=== PATIENT | female | born 1940 | race Caucasian/White ===

== ENCOUNTER 2021-07-19 13:36 | Outpatient (CLI) | payer MEDICARE, MEDICAID, SELFPAY ==
[2021-07-19 14:43] LABS: Alanine Aminotransferase 15 U/L (4-35); Albumin Level 3.9 g/dL (3.5-5.1); Alkaline Phosphatase 62 U/L (38-126); Anion Gap 7 mmol/L (8-16); Aspartate Amino Transferase 30 U/L (14-36); Bilirubin,Total 0.9 mg/dL (0.2-1.3); Blood Urea Nitrogen 21 mg/dL (7-17); Calcium 8.9 mg/dL (8.4-10.2); Carbon Dioxide 25 mmol/L (22-30); Chloride 105 mmol/L (98-107); Estimated Glomerular Filt Rate 43; Glucose 117 mg/dL (65-110); Sodium 137 mmol/L (137-145)
== END 2021-07-19 13:37 | disposition home or self-care (01) ==
PROVIDERS: PCP Family Medicine; Visit Provider Family Medicine
DX: I10 Essential (primary) hypertension (principal)
CPT/HCPCS: 36415; 80053

== ENCOUNTER 2021-09-29 13:10 | Outpatient (CLI) | payer MEDICARE, MEDICAID, SELFPAY ==
[2021-09-29 14:04] LABS: Alanine Aminotransferase 15 U/L (4-35); Albumin Level 3.9 g/dL (3.5-5.1); Alkaline Phosphatase 75 U/L (38-126); Anion Gap 7 mmol/L (8-16); Aspartate Amino Transferase 27 U/L (14-36); Bilirubin,Total 1.1 mg/dL (0.2-1.3); Blood Urea Nitrogen 21 mg/dL (7-17); Calcium 9.1 mg/dL (8.4-10.2); Carbon Dioxide 27 mmol/L (22-30); Chloride 105 mmol/L (98-107); Estimated Glomerular Filt Rate 43; Glucose 109 mg/dL (65-110); Potassium 3.8 mmol/L (3.4-5.0); Sodium 139 mmol/L (137-145)
== END 2021-09-29 13:11 | disposition home or self-care (01) ==
PROVIDERS: PCP Family Medicine; Visit Provider Family Medicine
DX: E87.6 Hypokalemia (principal); I10 Essential (primary) hypertension
CPT/HCPCS: 36415; 80053

== ENCOUNTER 2022-08-28 10:00 | Outpatient (CLI) | payer MEDICARE, MEDICAID, SELFPAY ==
[2022-08-28 10:27] LABS: Basophils Absolute Auto 0.1 K/mm3 (0.0-0.1); Basophils Percent Auto 0.9 % (0.2-1.2); Eosinophils Absolute Auto 0.2 K/mm3 (0-0.3); Eosinophils Percent Auto 3.2 % (0-4.4); Hematocrit 39.2 % (37.0-47.0); Hemoglobin 12.9 g/dL (12.0-15.0); Immature Granulocyte Absolute 0.02 K/mm3 (0.00-0.031); Immature Granulocyte Percent A 0.3 % (0-0.5); Lymphocytes Absolute Auto 1.73 K/mm3 (0.9-3.2); Lymphocytes Percent Auto 26.5 % (18.3-44.2); Mean Corpuscular HGB Conc 32.9 g/dl (32-36); Mean Corpuscular Hemoglobin 31.7 pg (26-34); Mean Corpuscular Volume 96.3 fl (80-100); Mean Platelet Volume 10.5 fl (7.4-10.4); Monocytes Absolute Auto 0.6 K/mm3 (0.1-0.6); Monocytes Percent Auto 8.6 % (2.6-8.5); Neutrophils Absolute Auto 3.9 K/mm3 (1.3-6.7); Neutrophils Percent Auto 60.5 % (45.5-73.1); Platelet Count Result 268 k/mm3 (150-375); Red Blood Count 4.07 M/mm3 (4.2-5.4); Red Cell Distribution Width 12.5 % (11.5-14.5); White Blood Count 6.5 K/mm3 (4.5-10.0)
[2022-08-28 10:40] LABS: Alanine Aminotransferase 18 U/L (6-35); Albumin Level 4.1 g/dL (3.5-5.1); Alkaline Phosphatase 82 U/L (38-126); Anion Gap 11 mmol/L (8-16); Aspartate Amino Transferase 30 U/L (14-36); Bilirubin,Total 0.7 mg/dL (0.2-1.3); Blood Urea Nitrogen 27 mg/dL (7-17); Calcium 8.9 mg/dL (8.4-10.2); Carbon Dioxide 30 mmol/L (22-30); Chloride 99 mmol/L (98-107); Cholesterol 192 mg/dL (0-200); Estimated Glomerular Filt Rate 36; Glucose 102 mg/dL (65-110); HDL Direct 42 mg/dL; Sodium 140 mmol/L (137-145); Triglycerides 184 mg/dL (<150)
[2022-08-28 10:51] LABS: LDL Cholesterol Direct 101 mg/dL
[2022-08-28 11:02] LABS: Vitamin D 25 Hydroxy 20.9 ng/mL
[2022-08-28 11:09] LABS: Thyroid Stimulating Hormone 0.951 uIU/mL (0.465-4.680)
== END 2022-08-28 10:01 | disposition home or self-care (01) ==
LOC: ANHLAB 10:01
PROVIDERS: PCP Family Medicine; Visit Provider Nurse Practitioner Family
DX: I10 Essential (primary) hypertension (principal); E78.5 Hyperlipidemia, unspecified; E03.9 Hypothyroidism, unspecified; E55.9 Vitamin D deficiency, unspecified
CPT/HCPCS: 36415; 80053; 80061; 82306; 84443; 85025

== ENCOUNTER 2023-02-21 16:13 | Outpatient (CLI) | payer MEDICARE, SELFPAY ==
[2023-02-21 16:58] LABS: Basophils Absolute Auto 0.1 K/mm3 (0.0-0.1); Basophils Percent Auto 0.7 % (0.2-1.2); Eosinophils Absolute Auto 0.1 K/mm3 (0-0.3); Eosinophils Percent Auto 1.3 % (0-4.4); Hematocrit 37.4 % (37.0-47.0); Hemoglobin 12.3 g/dL (12.0-15.0); Immature Granulocyte Absolute 0.05 K/mm3 (0.00-0.031); Immature Granulocyte Percent A 0.5 % (0-0.5); Lymphocytes Absolute Auto 1.34 K/mm3 (0.9-3.2); Lymphocytes Percent Auto 13.7 % (18.3-44.2); Mean Corpuscular HGB Conc 32.9 g/dl (32-36); Mean Corpuscular Hemoglobin 31.6 pg (26-34); Mean Corpuscular Volume 96.1 fl (80-100); Mean Platelet Volume 10.7 fl (7.4-10.4); Monocytes Percent Auto 10.1 % (2.6-8.5); Neutrophils Absolute Auto 7.2 K/mm3 (1.3-6.7); Neutrophils Percent Auto 73.7 % (45.5-73.1); Platelet Count Result 286 k/mm3 (150-375); Red Blood Count 3.89 M/mm3 (4.2-5.4); Red Cell Distribution Width 13.5 % (11.5-14.5); White Blood Count 9.8 K/mm3 (4.5-10.0)
[2023-02-21 17:11] LABS: Alanine Aminotransferase 22 U/L (6-35); Albumin Level 3.9 g/dL (3.5-5.1); Alkaline Phosphatase 79 U/L (38-126); Anion Gap 7 mmol/L (8-16); Aspartate Amino Transferase 24 U/L (14-36); Bilirubin,Total 1.2 mg/dL (0.2-1.3); Blood Urea Nitrogen 31 mg/dL (7-17); Carbon Dioxide 26 mmol/L (22-30); Chloride 101 mmol/L (98-107); Cholesterol 177 mg/dL (0-200); Estimated Glomerular Filt Rate 47; Glucose 87 mg/dL (65-110); HDL Direct 43 mg/dL; Sodium 134 mmol/L (137-145); Triglycerides 178 mg/dL (<150)
[2023-02-21 17:22] LABS: LDL Cholesterol Direct 93 mg/dL
[2023-02-21 17:41] LABS: Vitamin D 25 Hydroxy 26.2 ng/mL
== END 2023-02-21 16:14 | disposition home or self-care (01) ==
PROVIDERS: PCP Family Medicine; Visit Provider Nurse Practitioner Family
DX: I10 Essential (primary) hypertension (principal); E78.5 Hyperlipidemia, unspecified; E55.9 Vitamin D deficiency, unspecified
CPT/HCPCS: 36415; 80053; 80061; 82306; 85025

== ENCOUNTER 2023-05-20 12:42 | Emergency (ER) | payer MEDICARE, SELFPAY ==
--- NOTE | ~2023-05-20 | XR_ITS ---
Portable chest x-ray Comparison: 11/29/2019 Clinical History: Dyspnea Findings: Possible minimal interstitial edema. No focal consolidation or pleural effusion. Cardiome diastinal silhouette is stable. Left shoulder arthroplasty noted. Impression: Possible minimal interstitial edema. Reviewed, dictated and finalized at [facility]. Impression: Possible minimal interstitial edema.
[2023-05-20 12:49] VITALS: BP 169/76; PULSE 72; RESP 18; O2SAT 98
[2023-05-20 13:09] VITALS: O2SAT 98
[2023-05-20 13:30] VITALS: BP 166/61; PULSE 78; RESP 21; O2SAT 96
[2023-05-20] MEDS: CYCLOBENZAPRINE HCL 5 MG TABLET PO (14:01)
[2023-05-20 14:18] LABS: Basophils Absolute Auto 0.1 K/mm3 (0.0-0.1); Basophils Percent Auto 1.2 % (0.2-1.2); Eosinophils Absolute Auto 0.6 K/mm3 (0-0.3); Eosinophils Percent Auto 6.5 % (0-4.4); Hematocrit 34.2 % (37.0-47.0); Hemoglobin 11.3 g/dL (12.0-15.0); Immature Granulocyte Absolute 0.03 K/mm3 (0.00-0.031); Immature Granulocyte Percent A 0.4 % (0-0.5); Lymphocytes Percent Auto 11.8 % (18.3-44.2); Mean Corpuscular Hemoglobin 31.8 pg (26-34); Mean Corpuscular Volume 96.3 fl (80-100); Mean Platelet Volume 9.8 fl (7.4-10.4); Monocytes Absolute Auto 0.8 K/mm3 (0.1-0.6); Monocytes Percent Auto 8.9 % (2.6-8.5); Neutrophils Percent Auto 71.2 % (45.5-73.1); Platelet Count Result 265 k/mm3 (150-375); Red Blood Count 3.55 M/mm3 (4.2-5.4); Red Cell Distribution Width 13.3 % (11.5-14.5); White Blood Count 8.4 K/mm3 (4.5-10.0)
[2023-05-20 14:30] VITALS: BP 166/68; PULSE 82; RESP 20; O2SAT 98
[2023-05-20 14:31] LABS: Alanine Aminotransferase 15 U/L (6-35); Albumin Level 3.9 g/dL (3.5-5.1); Alkaline Phosphatase 110 U/L (38-126); Anion Gap 2 mmol/L (8-16); Aspartate Amino Transferase 26 U/L (14-36); Bilirubin,Total 1.5 mg/dL (0.2-1.3); Blood Urea Nitrogen 20 mg/dL (7-17); Calcium 8.7 mg/dL (8.4-10.2); Carbon Dioxide 28 mmol/L (22-30); Chloride 98 mmol/L (98-107); Estimated CRCL calculation 46 ml/min; Estimated Glomerular Filt Rate 53; Glucose 95 mg/dL (65-110); Magnesium 1.8 mg/dL (1.6-2.3); Potassium 3.9 mmol/L (3.4-5.0); Sodium 128 mmol/L (137-145)
[2023-05-20 14:37] LABS: NT Pro B Type Natriuretic Pept 1130 pg/mL (19.9-100)
--- NOTE | 2023-05-20 15:36 | ED.BACK ---
HPI - Back Pain/Injury General Chief Complaint: Back Pain/Injury Stated Complaint: SOB, BLE, sciatic nerve pain Time Seen by Provider: 05/20/23 13:01 History of Present Illness HPI Narrative: This is an 83-year-old female with past history of CKD, referred from an urgent care for bilateral lower extremity edema and back pain. The patient states she has history of sciatica and noted increased right side pain, rated 8/10 at maximum and 3/10 at rest, described as dull and occasionally shooting down the right leg. She denies any associated fevers, chills, falls, loss of bowel or bladder control or loss of sensation in the groin. The patient was seen at an urgent care where she was found to have bilateral lower extremity edema and mild Rales examination. Her vital signs are within normal limits. She was referred to for work-up. Related Data Home Medications Medication Instructions Recorded Confirmed nitroglycerin 0.4 mg sublingual 0.4 mg sublingual Q5M PRN Angina 09/16/19 08/08/22 tablet pantoprazole 40 mg tablet,delayed 40 mg PO QAM 09/16/19 08/08/22 release (Protonix) amlodipine 10 mg tablet 10 mg PO DAILY 05/28/21 08/08/22 Allergies Allergy/AdvReac Type Severity Reaction Status Date / Time Cephalosporins Allergy Severe DIFF Verified 05/20/23 11:31 BREATHING, THROAT SWELLING atorvastatin Allergy Unknown Muscle Pain Verified 05/20/23 11:31 azithromycin Allergy Unknown Anaphylaxis Verified 05/20/23 11:31 cephalexin Allergy Unknown Difficulty Verified 05/20/23 11:31 Breathing erythromycin base Allergy Unknown Anaphylaxis Verified 05/20/23 11:31 levofloxacin Allergy Unknown Rash Verified 05/20/23 11:31 Penicillins Allergy Unknown Anaphylaxis Verified 05/20/23 11:31 spironolactone Allergy Unknown Unknown Verified 05/20/23 11:31 Bcnxoqb-MLJ-CgD Reductase Allergy Unknown muscle Verified 05/20/23 11:31 Inhibitor weakness [Diunzlm-Kpv-Vld Reductase Inhibitor] Sulfa (Sulfonamide Allergy Unknown Anaphylaxis Verified 05/20/23 11:31 Antibiotics) Review of Systems Review of Systems: CONSTITUTIONAL: Denies fever, chills, or sweats. CARDIOVASCULAR: Bilateral lower extremity edema denies chest pain, palpitations RESPIRATORY: Denies cough or dyspnea. GASTROINTESTINAL: Denies abdominal pain, nausea, vomiting, or diarrhea. GENITOURINARY: Denies dysuria or hematuria. SKIN: Denies rash or itching. MUSCULOSKELETAL: Acute on chronic back pain radiating to the right leg denies joint pain, or myalgia. NEUROLOGIC: Denies headache, numbness, dizziness, or weakness. PSYCHIATRIC: Denies anxiety or depression. [facility] Past Medical History Medical History Acute renal failure (~06/2020) Adult failure to thrive Anxiety Arthritis rt shoulder, back Bilateral knee pain Chronic back pain Chronic lower back pain Compression fracture Compression fracture of lumbar spine, non-traumatic Fracture lt shoulder General weakness GERD without esophagitis HTN (hypertension) Hyperlipidemia Localized edema Myocardial infarction Osteopenia Paranoia (psychosis) Rhabdomyolysis (~06/2020) Shingles Statin intolerance Vitamin D deficiency Surgical History Surgical History H/O right knee surgery (~1988) ORIF H/O: hysterectomy (~1978) Hx of appendectomy (~1978) Hx of cataract surgery (~1992) bilateral Hx of cholecystectomy (~1992) Hx of heart artery stent (~2010) x3 Hx of shoulder surgery (~2013) lt shoulder replacement Family History Family History Mother Cerebrovascular accident, Onset Age: 77 Patient's mother is Family history of coronary artery disease Family history of osteoarthritis Family history of congestive heart failure Father Family history of lung cancer Patient's father is Family history of maligna
[2023-05-20 15:58] VITALS: BP 148/52; PULSE 81; RESP 14; O2SAT 98
== END 2023-05-20 16:07 ==
PROVIDERS: Emergency Provider Preventive Medicine Aerospace Medicine; PCP Family Medicine
DX: J81.0 Acute pulmonary edema (principal); E87.1 Hypo-osmolality and hyponatremia; I12.9 Hypertensive chronic kidney disease with stage 1 through stage 4 chronic kidney disease, or unspecified chronic kidney disease; N18.9 Chronic kidney disease, unspecified; I25.2 Old myocardial infarction; E78.5 Hyperlipidemia, unspecified; G89.29 Other chronic pain; M54.50 Low back pain, unspecified; K21.9 Gastro-esophageal reflux disease without esophagitis; M19.011 Primary osteoarthritis, right shoulder; M85.80 Other specified disorders of bone density and structure, unspecified site; E55.9 Vitamin D deficiency, unspecified; F41.9 Anxiety disorder, unspecified; R06.02 Shortness of breath; Z95.5 Presence of coronary angioplasty implant and graft; Z96.612 Presence of left artificial shoulder joint; Z87.891 Personal history of nicotine dependence; Z90.710 Acquired absence of both cervix and uterus; Z98.42 Cataract extraction status, left eye; Z98.41 Cataract extraction status, right eye; Z90.49 Acquired absence of other specified parts of digestive tract
CPT/HCPCS: 36415; 71045; 80053; 83735; 83880; 85025; 99283; A9270

== ENCOUNTER 2023-05-24 10:37 | Emergency (ER) | payer MEDICARE, SELFPAY ==
--- NOTE | ~2023-05-24 | XR_ITS ---
XR lumbar spine 2-3V DATE: 05/24/2023 11:47 INDICATION: Low back pain TECHNIQUE: AP, lateral, coned lateral lumbosacral views COMPARISON: 11/30/2019 lumbar spine FINDINGS: There is diffuse osteopenia. There is severe collapse (vertebra plana) at L1, increased in severity since 02/26/2016. Persistent moderate compression fractures of L3. L4, stable since 2016 . There is multi-level degenerative disc disease, most severe at T12-L1, L1-2 and L3-4 and L5-S1. The sacroiliac joints are intact. Bilateral hip osteoarthritis. There is calcification of the abdominal aorta and iliac arteries. IMPRESSION: Vertebroplasty at L1, increased in severity since 2015 Stable compression fracture deformities at L3 and L4 Multilevel degenerative disc disease Osteopenia Reviewed, dictated and finalized at location [facility]. IMPRESSION: Vertebroplasty at L1, increased in severity since 2016 Stable compression fracture deformities at L3 and L4 Multilevel degenerative disc disease Osteopenia
[2023-05-24 10:41] VITALS: BP 189/71; PULSE 67; RESP 18; TEMP 36.6; O2SAT 99
[2023-05-24] MEDS: KETOROLAC 30 MG/ML VIAL (*BKC) IM (11:17)
[2023-05-24 11:24] VITALS: O2SAT 98
[2023-05-24 11:30] VITALS: O2SAT 97
[2023-05-24 11:47] VITALS: O2SAT 99
[2023-05-24 12:00] VITALS: O2SAT 97
--- NOTE | 2023-05-24 13:09 | ED.GENADULT ---
HPI - General Adult General Chief complaint: Unspecified Stated complaint: FLUID RETENTION Time Seen by Provider: 05/24/23 10:44 History of Present Illness HPI narrative: Patient is an 83-year-old female who presents ER with low back pain. No SI region bilaterally. No radiation down the legs. Worse with going from sitting to standing. She has been on Solu-Medrol, palpable breathing, warm and. She reports she still has pain. No known fall or injury. Is having some increased discomfort today so came in for further evaluation. Has not had recent imaging. No urinary frequency urgency or dysuria. No saddle anesthesia. No incontinence. Patient also reports she has some chronic lower extremity edema. Related Data Home Medications Medication Instructions Recorded Confirmed nitroglycerin 0.4 mg sublingual 0.4 mg sublingual Q5M PRN Angina 09/16/19 08/08/22 tablet pantoprazole 40 mg tablet,delayed 40 mg PO QAM 09/16/19 08/08/22 release (Protonix) amlodipine 10 mg tablet 10 mg PO DAILY 05/28/21 08/08/22 Allergies Allergy/AdvReac Type Severity Reaction Status Date / Time Cephalosporins Allergy Severe DIFF Verified 05/24/23 11:16 BREATHING, THROAT SWELLING atorvastatin Allergy Unknown Muscle Pain Verified 05/24/23 11:16 azithromycin Allergy Unknown Anaphylaxis Verified 05/24/23 11:16 cephalexin Allergy Unknown Difficulty Verified 05/24/23 11:16 Breathing erythromycin base Allergy Unknown Anaphylaxis Verified 05/24/23 11:16 levofloxacin Allergy Unknown Rash Verified 05/24/23 11:16 Penicillins Allergy Unknown Anaphylaxis Verified 05/24/23 11:16 spironolactone Allergy Unknown Unknown Verified 05/24/23 11:16 Tjofrdg-GTS-UoL Reductase Allergy Unknown muscle Verified 05/24/23 11:16 Inhibitor weakness [Xsgxfdx-Zmx-Bfz Reductase Inhibitor] Sulfa (Sulfonamide Allergy Unknown Anaphylaxis Verified 05/24/23 11:16 Antibiotics) Review of Systems Constitutional: Constitutional: Denies chills and Denies fever(s) Genitourinary: Genitourinary: Denies dysuria, Denies flank pain and Denies urinary incontinence Musculoskeletal: Musculoskeletal: Reports back pain, Denies arthralgias and Denies joint swelling PMFSH Past Medical History Medical History Acute renal failure (~06/2020) Adult failure to thrive Anxiety Arthritis rt shoulder, back Bilateral knee pain Chronic back pain Chronic lower back pain Compression fracture Compression fracture of lumbar spine, non-traumatic Fracture lt shoulder General weakness GERD without esophagitis HTN (hypertension) Hyperlipidemia Localized edema Myocardial infarction Osteopenia Paranoia (psychosis) Rhabdomyolysis (~06/2020) Shingles Statin intolerance Vitamin D deficiency Surgical History Surgical History H/O right knee surgery (~1988) ORIF H/O: hysterectomy (~1978) Hx of appendectomy (~1978) Hx of cataract surgery (~1992) bilateral Hx of cholecystectomy (~1992) Hx of heart artery stent (~2010) x3 Hx of shoulder surgery (~2013) lt shoulder replacement Family History Family History Mother Cerebrovascular accident, Onset Age: 77 Patient's mother is Family history of coronary artery disease Family history of osteoarthritis Family history of congestive heart failure Father Family history of lung cancer Patient's father is Family history of malignant neoplasm Grandparent Cerebrovascular accident Family history of heart disease in male family member before age 55 Social History Social History Social History: The patient's same-sex partner has (2018), she moved to [facility] apartment 2019. She has no children. She has has a power of blintze roller (Mo Pelletier) who is an a
--- NOTE | 2023-05-24 13:18 | PC.NURSE ---
notified Amaris at [facility] of patient return. all questions answered at this time.
[2023-05-24 13:56] VITALS: BP 160/66; PULSE 79; O2SAT 97
== END 2023-05-24 14:14 ==
PROVIDERS: Emergency Provider Emergency Medicine; PCP Family Medicine
DX: M54.50 Low back pain, unspecified (principal); G89.29 Other chronic pain; I10 Essential (primary) hypertension; E78.5 Hyperlipidemia, unspecified; Z87.891 Personal history of nicotine dependence
CPT/HCPCS: 72100; 96372; 99283; J1885

== ENCOUNTER 2023-07-01 10:04 | Observation (INO) | payer MEDICARE, MEDICAID, SELFPAY ==
[2023-07-01] VITALS (39 sets, daily range): BP systolic 171–206; BP diastolic 49–73; PULSE 74–90; RESP 12–30; TEMP 36.4–36.5; O2SAT 91–98
--- NOTE | ~2023-07-01 | CT_ITS ---
EXAMINATION: CT lumbar spine wo con DATE: 07/01/2023 16:13 INDICATION: Low back pain TECHNIQUE: Computed tomography (CT) of the lumbar spine was performed without intravenous contrast. A utomated exposure control and iterative reconstruction technique were employed. The dose-length produ ct was 1508.38 mGy-cm. COMPARISON: Lumbar spine radiographs dated 05/24/2023 and 11/30/2019 and lumbar spine MR dated 6 FINDINGS: Straightening of the normal lumbar lordosis. 5 degrees lumbar dextrocurvature. Multiple chronic lumba r burst fractures with 90% central vertebral body height loss at L1 and 7 mm retropulsion, 40% centra l vertebral body height loss and 3 mm retropulsion at L3, 40% central vertebral body height loss and 6 mm retropulsion at L4 and 60% central vertebral body height loss and 2-3 mm retropulsion at L5. The se all appear unchanged since radiographs dated 05/24/2023. There is sclerosis associated with a still ununited minimally displaced sagittally oriented fracture of the right sacral ala. Additional sclero sis extending along the left sacral ala and across the S2 vertebral body consistent with additional n ondisplaced fractures. This without evident correlate on the most recent prior radiograph suggesting subacute fracture. There is secondary ballooning of the central aspect of the adjacent disc spaces. C holecystectomy clips the gallbladder fossa. Hepatic and splenic calcific lesions consistent with old granulomatous disease. Paravertebral soft tissues are unremarkable. The following disc levels are spe cifically discussed: T12-L1: There is mild bilateral facet joint osteoarthritis. There is mild right neural foraminal sten osis. There is no central canal stenosis. L1-L2: L1 retropulsion resulting in mild to moderate central canal stenosis at the level of the verte bral body and mild central canal stenosis at the level of the disc space. There is no central canal s tenosis at the level of the disc space. There is mild bilateral facet joint osteoarthritis. There is moderate left and mild to moderate right neural foraminal stenosis. L2-L3: There is mild central canal stenosis resulting from the retropulsion at the cephalad posterior wall of the L3 vertebral body. There is moderate bilateral facet joint osteoarthritis. There is mild left and mild to moderate right neural foraminal stenosis. L3-L4: There is mild central canal stenosis resulting from the retropulsion at the cephalad posterior wall of the L4 vertebral body. There is moderate bilateral facet joint osteoarthritis. There is mild bilateral neural foraminal stenosis. L4-L5: Disc is bulging. There is hypertrophy of the ligamentum flavum. There is severe bilateral face t joint osteoarthritis. There is moderate left and mild to moderate right neural foraminal stenosis. There is mild central canal stenosis. L5-S1: There is severe bilateral facet joint osteoarthritis. There is moderate bilateral neural chandan inal stenosis. There is no central canal stenosis. IMPRESSION: 1. Likely subacute sacral insufficiency fractures at the bilateral sacral ala and extending across th e S2 vertebral body. 2. Chronic burst fractures of L1, L3-L5 with retropulsion contributing to mild to moderate central ca nal stenosis at the level of L1 and mild central canal stenosis at a few additional lumbar levels. 3. Moderate to severe multilevel lumbar facet osteoarthritis contributing to mild and moderate neural foraminal stenosis at multiple levels on both the left and right. Reviewed, dictated and finalized at location A. IMPRESSION: 1. Likely subacute sacral insufficiency fractures at the bilateral sacral ala a nd extending across the S2 vertebral body. 2. Chronic burst fractures of L1, L3-L5 with retropulsion contributing to mild to m
--- NOTE | ~2023-07-01 | XR_ITS ---
EXAMINATION: XR chest 2V DATE: 07/01/2023 11:00 INDICATION: Shortness of breath TECHNIQUE: AP and lateral views of the chest are obtained. COMPARISON: 05/20/2023 FINDINGS: The heart size is normal. There is a mild diffuse interstitial pattern. There are small ple ural effusions. No pneumothorax is identified. Changes of left shoulder arthroplasty are noted. There is advanced osteoarthritis of the right glenohumeral joint. IMPRESSION: 1. Mild pulmonary edema. Reviewed, dictated and finalized at location A. IMPRESSION: 1. Mild pulmonary edema.
--- NOTE | ~2023-07-01 | US_ITS ---
EXAMINATION: US venous doppler [facility] DATE: 07/02/2023 14:31 INDICATION: Bilateral lower limb swelling TECHNIQUE: Vaughn scale images without and with compression and Doppler images of the bilateral lower e xtremity veins were obtained. COMPARISON: 05/10/2016 FINDINGS: The right common femoral vein, profunda femoral vein, femoral vein, popliteal vein, peroneal trunk, p osterior tibial veins, and greater saphenous vein are patent. The left common femoral vein, profunda femoral vein, femoral vein, popliteal vein, peroneal trunk, po sterior tibial veins, and greater saphenous vein are patent. IMPRESSION: 1. Patent bilateral lower extremity veins. No evidence of deep venous thrombosis. Reviewed, dictated and finalized at location A. IMPRESSION: 1. Patent bilateral lower extremity veins. No evidence of deep venous thrombosi s.
--- NOTE | 2023-07-01 10:22 | ECG_ITS ---
Measurements Intervals [place] Rate: 81 P: 53 FL: 153 QRS: 15 QRSD: 88 T: 2 QT: 354 QTc: 413 Interpretive Statements SINUS RHYTHM NONSPECIFIC ST AND T WAVE ABNORMALITY COMPARED TO ECG 12/01/2019 20:20:46 NO SIGNIFICANT CHANGES Electronically Signed On 07-02-2023 11:26:26 CDT by Mamie Lloyd M.D.
[2023-07-01 10:46] LABS: Basophils Percent Auto 0.5 % (0.2-1.2); Eosinophils Absolute Auto 0.1 K/mm3 (0-0.3); Eosinophils Percent Auto 1.7 % (0-4.4); Hematocrit 38.3 % (37.0-47.0); Hemoglobin 12.4 g/dL (12.0-15.0); Immature Granulocyte Absolute 0.05 K/mm3 (0.00-0.031); Immature Granulocyte Percent A 0.6 % (0-0.5); Lymphocytes Absolute Auto 1.12 K/mm3 (0.9-3.2); Lymphocytes Percent Auto 13.6 % (18.3-44.2); Mean Corpuscular HGB Conc 32.4 g/dl (32-36); Mean Corpuscular Hemoglobin 31.4 pg (26-34); Mean Platelet Volume 9.6 fl (7.4-10.4); Monocytes Absolute Auto 0.8 K/mm3 (0.1-0.6); Monocytes Percent Auto 10.1 % (2.6-8.5); Neutrophils Absolute Auto 6.1 K/mm3 (1.3-6.7); Neutrophils Percent Auto 73.5 % (45.5-73.1); Platelet Count Result 246 k/mm3 (150-375); Red Blood Count 3.95 M/mm3 (4.2-5.4); Red Cell Distribution Width 13.2 % (11.5-14.5); White Blood Count 8.2 K/mm3 (4.5-10.0)
[2023-07-01 10:57] LABS: Alanine Aminotransferase 17 U/L (6-35); Albumin Level 3.9 g/dL (3.5-5.1); Alkaline Phosphatase 135 U/L (38-126); Anion Gap 7 mmol/L (8-16); Aspartate Amino Transferase 25 U/L (14-36); Bilirubin,Total 1.3 mg/dL (0.2-1.3); Blood Urea Nitrogen 18 mg/dL (7-17); Calcium 8.9 mg/dL (8.4-10.2); Carbon Dioxide 28 mmol/L (22-30); Chloride 102 mmol/L (98-107); Estimated CRCL calculation 55 ml/min; Estimated Glomerular Filt Rate > 60; Glucose 100 mg/dL (65-110); Potassium 3.8 mmol/L (3.4-5.0); Sodium 137 mmol/L (137-145)
[2023-07-01 10:59] LABS: INR 1.1; Prothrombin Time 14.4 Seconds (11.1-14.7)
[2023-07-01 11:00] LABS: Partial Thromboplastin Time 32.5 SECONDS (22.3-36.8)
[2023-07-01 11:08] LABS: NT Pro B Type Natriuretic Pept 1900 pg/mL (19.9-100); Troponin I < 0.012 ng/mL (0.000-0.034)
[2023-07-01] MEDS: HYDROcodone/acetaminophen (*CRX) 5-325 MG TABLET 1 TAB PO ×2 (13:05→23:06)
--- NOTE | 2023-07-01 13:22 | ED.BACK ---
HPI - Back Pain/Injury General Chief Complaint: Back Pain/Injury Stated Complaint: back pain/fluid retention Time Seen by Provider: 07/01/23 13:21 Related Data Home Medications Medication Instructions Recorded Confirmed nitroglycerin 0.4 mg sublingual 0.4 mg sublingual Q5M PRN Angina 09/16/19 08/08/22 tablet pantoprazole 40 mg tablet,delayed 40 mg PO QAM 09/16/19 08/08/22 release (Protonix) amlodipine 10 mg tablet 10 mg PO DAILY 05/28/21 08/08/22 Allergies Allergy/AdvReac Type Severity Reaction Status Date / Time Cephalosporins Allergy Severe DIFF Verified 07/01/23 10:35 BREATHING, THROAT SWELLING atorvastatin Allergy Unknown Muscle Pain Verified 07/01/23 10:35 azithromycin Allergy Unknown Anaphylaxis Verified 07/01/23 10:35 cephalexin Allergy Unknown Difficulty Verified 07/01/23 10:35 Breathing erythromycin base Allergy Unknown Anaphylaxis Verified 07/01/23 10:35 levofloxacin Allergy Unknown Rash Verified 07/01/23 10:35 Penicillins Allergy Unknown Anaphylaxis Verified 07/01/23 10:35 spironolactone Allergy Unknown Unknown Verified 07/01/23 10:35 Ncbnhhi-SYP-SnF Reductase Allergy Unknown muscle Verified 07/01/23 10:35 Inhibitor weakness [Znpwujp-Rwt-Daw Reductase Inhibitor] Sulfa (Sulfonamide Allergy Unknown Anaphylaxis Verified 07/01/23 10:35 Antibiotics) PMFSH Past Medical History Medical History Acute renal failure (~06/2020) Adult failure to thrive Anxiety Arthritis rt shoulder, back Bilateral knee pain Chronic back pain Chronic lower back pain Compression fracture Compression fracture of lumbar spine, non-traumatic Fracture lt shoulder General weakness GERD without esophagitis HTN (hypertension) Hyperlipidemia Localized edema Myocardial infarction Osteopenia Paranoia (psychosis) Rhabdomyolysis (~06/2020) Shingles Statin intolerance Vitamin D deficiency Surgical History Surgical History H/O right knee surgery (~1988) ORIF H/O: hysterectomy (~1978) Hx of appendectomy (~1978) Hx of cataract surgery (~1992) bilateral Hx of cholecystectomy (~1992) Hx of heart artery stent (~2010) x3 Hx of shoulder surgery (~2013) lt shoulder replacement Family History Family History Mother Cerebrovascular accident, Onset Age: 77 Patient's mother is Family history of coronary artery disease Family history of osteoarthritis Family history of congestive heart failure Father Family history of lung cancer Patient's father is Family history of malignant neoplasm Grandparent Cerebrovascular accident Family history of heart disease in male family member before age 55 Social History Social History Social History: The patient's same-sex partner has (2018), she moved to [facility] apartment 2019. She has no children. She has has a power of deputy prosecuting attorney (Mo Pelletier) who is an deputy prosecuting attorney and a family friend. She wishes to be a do not resuscitate. She said she used to smoke 50 years ago. No alcohol or illicit drugs. Smoking status: Former smoker Second hand tobacco smoke exposure: No Smoking end date: 07/11/71 Alcohol intake: never Substance use: never Substance use type: does not use Living arrangements: assisted living Occupation/Education: retired Gender identity (if verbalized by the patient): Female Spiritual care concerns: No Agree to blood products: Yes Course Vital Signs Vital signs: Vital Signs Pulse Rate 90 07/01/23 10:16 Respiratory Rate 15 07/01/23 10:16 Blood Pressure 201/71 H 07/01/23 10:16 Pulse Oximetry 98 07/01/23 10:16 Temperature 36.5 C 07/01/23 10:19 Pulse Rate 80 07/01/23 12:47 Respiratory Rate 12 07/01/23 12:47 Blood Press
--- NOTE | 2023-07-01 15:52 | ED.GENADULT ---
HPI - General Adult General Chief complaint: Back Pain/Injury Stated complaint: back pain/fluid retention Time Seen by Provider: 07/01/23 13:21 History of Present Illness HPI narrative: 84-year-old female present to the emergency department for evaluation of lower back pain, increased lower extremity edema and increased generalized weakness. Patient states that approximately 1 month ago she had worsening bilateral sciatica then over the course of the months she has had sustained lower back pain. Patient denies any falls or injuries. Patient states over the course of the last week she has had difficulty getting up and ambulating due to her lower back pain. Patient states that she is normally supposed to be taking daily Lasix but due to her decreased ambulation she has not been taking her Lasix and has had worsening lower extremity edema. Related Data Home Medications Medication Instructions Recorded Confirmed nitroglycerin 0.4 mg sublingual 0.4 mg sublingual Q5M PRN Angina 09/16/19 07/01/23 tablet pantoprazole 40 mg tablet,delayed 40 mg PO QAM 09/16/19 07/01/23 release (Protonix) amlodipine 10 mg tablet 10 mg PO DAILY 05/28/21 07/01/23 Allergies Allergy/AdvReac Type Severity Reaction Status Date / Time Cephalosporins Allergy Severe DIFF Verified 07/01/23 10:35 BREATHING, THROAT SWELLING atorvastatin Allergy Unknown Muscle Pain Verified 07/01/23 10:35 azithromycin Allergy Unknown Anaphylaxis Verified 07/01/23 10:35 cephalexin Allergy Unknown Difficulty Verified 07/01/23 10:35 Breathing erythromycin base Allergy Unknown Anaphylaxis Verified 07/01/23 10:35 levofloxacin Allergy Unknown Rash Verified 07/01/23 10:35 Penicillins Allergy Unknown Anaphylaxis Verified 07/01/23 10:35 spironolactone Allergy Unknown Unknown Verified 07/01/23 10:35 Onspjzd-AXJ-YuV Reductase Allergy Unknown muscle Verified 07/01/23 10:35 Inhibitor weakness [Dayhfqz-Ocn-Twz Reductase Inhibitor] Sulfa (Sulfonamide Allergy Unknown Anaphylaxis Verified 07/01/23 10:35 Antibiotics) Review of Systems Review of Systems: All systems reviewed & are unremarkable except as noted in HPI and below PMFSH Past Medical History Medical History Acute renal failure (~06/2020) Adult failure to thrive Anxiety Arthritis rt shoulder, back Bilateral knee pain Chronic back pain Chronic lower back pain Compression fracture Compression fracture of lumbar spine, non-traumatic Fracture lt shoulder General weakness GERD without esophagitis HTN (hypertension) Hyperlipidemia Localized edema Myocardial infarction Osteopenia Paranoia (psychosis) Rhabdomyolysis (~06/2020) Shingles Statin intolerance Vitamin D deficiency Surgical History Surgical History H/O right knee surgery (~1988) ORIF H/O: hysterectomy (~1978) Hx of appendectomy (~1978) Hx of cataract surgery (~1992) bilateral Hx of cholecystectomy (~1992) Hx of heart artery stent (~2010) x3 Hx of shoulder surgery (~2013) lt shoulder replacement Family History Family History Mother Cerebrovascular accident, Onset Age: 77 Patient's mother is Family history of coronary artery disease Family history of osteoarthritis Family history of congestive heart failure Father Family history of lung cancer Patient's father is Family history of malignant neoplasm Grandparent Cerebrovascular accident Family history of heart disease in male family member before age 55 Social History Social History Social History: The patient's same-sex partner has (2018), she moved to [facility] apartment 2019. She has no children. She has has a power of transactional attorney (Mo Pelletier) who is an transactional attorney and a family friend. She wi
[2023-07-01] MEDS: FUROSEMIDE INJ 40 MG/4 ML VIAL IV PUSH ×2 (16:15→21:01)
[2023-07-01 16:36] LABS: Appearance Urine Clear (Clear); Bacteria Urine None Seen /hpf; Bilirubin Urine Negative (Negative); Blood Urine Trace (Negative); Color Urine Yellow (Yellow); Glucose Urine UA Negative (Negative); Ketones Urine Negative (Negative); Leukocyte Esterase Ur Negative LEU/UL (Negative); Nitrate Urine Negative (Negative); Non Pathogenic Casts 0-2; Protein Urine 3+ mg/dL (Negative); Specific Grav Ur 1.008 (1.001-1.035); Squamous Epithelial Cell Urine None seen /hpf (Few); Urobilinogen Urine 0.2 mg/dL (<2.0)
[2023-07-01 16:49] LABS: Add Urine Microscopic? YES
[2023-07-01] MEDS: lisinopriL 20 MG TABLET PO (17:19)
--- NOTE | 2023-07-01 17:21 | PC.NURSE ---
Ordered pt a meal tray at this time
--- NOTE | 2023-07-01 17:29 | WPDNEUROSGPN ---
Subjective Date/time seen: 07/01/23 17:29 Interval history: Asked by ED to review patient's imaging findings PAtient is 83 years old and presents with increasing back pain limiting overall mobility CT in ED shows multiple compression fractures, most pronouinced at L1 where there is near vertebrum planum with some canal retropulsion. There may be spinal stenosis at this level. No suggestion of acute injury or of indication for surgical intervention based upon CT, however if there is a desire to better understand whether the compression fracture is contributing to the patient's pain, would recommend MRI lumbar spine without contrast during this hospitalization MRI may also help determine age / acuity of the compression fracture as if it appears acute to subacute, lumbar bracing may be useful. Please contact neurosurgery if and when MRI is complete and we can help with recommendations regarding further mgmt Objective Data Vital Signs Vital Signs: Vital Signs - 24 hr 07/01/23 10:19 07/01/23 10:16 07/01/23 10:22 Temperature 97.7 F Pulse Rate 79 90 76 Respiratory Rate 16 15 12 Blood Pressure 206/69 H 201/71 H Pulse Oximetry 96 98 97 Oxygen Delivery Room Air 07/01/23 10:30 07/01/23 10:50 07/01/23 11:01 Temperature Pulse Rate 80 80 84 Respiratory Rate 20 14 13 Blood Pressure Pulse Oximetry 96 95 92 Oxygen Delivery 07/01/23 11:15 07/01/23 11:16 07/01/23 11:30 Temperature Pulse Rate 85 85 83 Respiratory Rate 15 15 13 Blood Pressure 200/65 H Pulse Oximetry 93 94 93 Oxygen Delivery 07/01/23 11:50 07/01/23 12:04 07/01/23 12:16 Temperature Pulse Rate 81 79 82 Respiratory Rate 16 23 H 14 Blood Pressure Pulse Oximetry 94 93 93 Oxygen Delivery 07/01/23 12:30 07/01/23 12:47 07/01/23 13:00 Temperature Pulse Rate 79 80 78 Respiratory Rate 30 H 12 18 Blood Pressure Pulse Oximetry 93 97 Oxygen Delivery 07/01/23 13:17 07/01/23 13:30 07/01/23 13:31 Temperature Pulse Rate 81 81 78 Respiratory Rate 14 15 15 Blood Pressure 187/60 H Pulse Oximetry 93 94 Oxygen Delivery 07/01/23 13:48 07/01/23 14:00 07/01/23 14:15 Temperature Pulse Rate 76 76 80 Respiratory Rate 13 13 14 Blood Pressure Pulse Oximetry 91 92 91 Oxygen Delivery 07/01/23 14:16 07/01/23 14:30 07/01/23 15:05 Temperature Pulse Rate 78 76 76 Respiratory Rate 14 13 13 Blood Pressure 190/59 H Pulse Oximetry 92 91 Oxygen Delivery 07/01/23 15:16 07/01/23 15:30 07/01/23 15:50 Temperature Pulse Rate 76 76 77 Respiratory Rate 12 15 14 Blood Pressure Pulse Oximetry Oxygen Delivery 07/01/23 16:10 Temperature Pulse Rate 78 Respiratory Rate 15 Blood Pressure 203/63 H Pulse Oximetry 94 Oxygen Delivery Meds/Results Medications: Active Medications Generic Name Dose Route Start Last Admin Trade Name Freq PRN Reason Stop Dose Admin Furosemide 40 mg 07/01/23 21:00 Furosemide Inj 40 Mg/4 Ml Vial IV PUSH Q12HR VIELKA Radiology Results: ITS Impressions Chest X-Ray 07/01/23 11:03 IMPRESSION: 1. Mild pulmonary edema. Lumbar Spine CT 07/01/23 16:27 IMPRESSION: 1. Likely subacute sacral insufficiency fractures at the bilateral sacral ala and extending across the S2 vertebral body. 2. Chronic burst fractures of L1, L3-L5 with retropulsion contributing to mild to moderate central canal stenosis at the level of L1 and mild central canal stenosis at a few additional lumbar levels. 3. Moderate to severe multilevel lumbar facet osteoarthritis contributing to mild and moderate neural foraminal stenosis at multiple levels on both the left and right. Labs Labs: Laboratory Results - last 24 hr 07/01/23 07/01/23 10:32 16:12 WBC 8.2 RBC 3.95 L Hgb 12.4 Hct 38.3 MCV 97.0 MCH 31.4 MCHC 32.4 RDW 13.2 Plt Count 246 MPV 9.6 Immature Gran % (Auto) 0.6 H Neut % (Auto) 73.5 H Lymph % (Auto) 13.6 L
[2023-07-01] MEDS: amLODIPine BESYLATE 2.5 MG TABLET 10 MG PO (17:35)
[2023-07-01] MEDS: hydroCHLOROthiazide 12.5 MG CAPSULE PO (17:36)
--- NOTE | 2023-07-01 19:29 | ADMGEN ---
This patient, Ofelia Monzon, was admitted to [facility] Surg Room 306-01. Patient/family oriented to hospital policies and general routines including ID bracelet, bed and alarms, visiting hours, pain management, procedures, bathroom and other care routines, personal items, smoking policy, room service/diet, and visiting hours. Information on how to activate the Rapid Response Team has been discussed. Patient/Family are encouraged to report perceived risks to care and to ask questions if they do not understand what they are told or what they should do.
--- NOTE | 2023-07-01 20:11 | PM.IMHP ---
H&P: HPI History of Present Illness Date/Time: 07/01/23 20:11 [facility] Past Medical History Medical History Acute renal failure (~06/2020) Adult failure to thrive Anxiety Arthritis rt shoulder, back Bilateral knee pain Chronic back pain Chronic lower back pain Compression fracture Compression fracture of lumbar spine, non-traumatic Fracture lt shoulder General weakness GERD without esophagitis HTN (hypertension) Hyperlipidemia Localized edema Myocardial infarction Osteopenia Paranoia (psychosis) Rhabdomyolysis (~06/2020) Shingles Statin intolerance Vitamin D deficiency Surgical History Surgical History H/O right knee surgery (~1988) ORIF H/O: hysterectomy (~1978) Hx of appendectomy (~1978) Hx of cataract surgery (~1992) bilateral Hx of cholecystectomy (~1992) Hx of heart artery stent (~2010) x3 Hx of shoulder surgery (~2013) lt shoulder replacement Family History Family History Mother Cerebrovascular accident, Onset Age: 77 Patient's mother is Family history of coronary artery disease Family history of osteoarthritis Family history of congestive heart failure Father Family history of lung cancer Patient's father is Family history of malignant neoplasm Grandparent Cerebrovascular accident Family history of heart disease in male family member before age 55 Social History Social History Social History: The patient's same-sex partner has (2018), she moved to [facility] apartment 2019. She has no children. She has has a power of assistant attorney general (Mo Pelletier) who is an assistant attorney general and a family friend. She wishes to be a do not resuscitate. She said she used to smoke 50 years ago. No alcohol or illicit drugs. Smoking status: Former smoker Second hand tobacco smoke exposure: No Smoking end date: 07/11/71 Alcohol intake: never Substance use: never Substance use type: does not use Living arrangements: assisted living Occupation/Education: retired Gender identity (if verbalized by the patient): Female Spiritual care concerns: No Agree to blood products: Yes Meds Home Medications and Allergies Home Medications Medication Instructions Recorded Confirmed Type nitroglycerin 0.4 mg sublingual 0.4 mg sublingual Q5M PRN Angina 09/16/19 08/08/22 History tablet pantoprazole 40 mg tablet,delayed 40 mg PO QAM 09/16/19 08/08/22 History release (Protonix) acetaminophen 325 mg tablet (Mapap 650 mg PO Q4H PRN Mild Pain (1-3) 12/04/19 08/08/22 Rx (acetaminophen)) Or Fever #30 tabs loperamide 2 mg capsule (Imodium 2 mg PO Q6H PRN loose stool #14 05/15/21 08/08/22 Rx A-D) caps amlodipine 10 mg tablet 10 mg PO DAILY 05/28/21 08/08/22 History clopidogrel 75 mg tablet 75 mg PO DAILY #90 tabs 08/20/21 08/08/22 Rx lisinopril 20 1 tablet PO DAILY #90 tabs 10/01/21 08/08/22 Rx mg-hydrochlorothiazide 12.5 mg tablet atenolol 100 mg tablet See Rx Instructions PO BID #180 11/14/21 08/08/22 Rx tabs diazepam 5 mg tablet 5 mg PO DAILY PRN anxiety #90 tabs 12/16/22 Rx cholecalciferol (vitamin D3) 50 50 mcg PO DAILY #90 caps 02/13/23 02/13/23 Rx mcg (2,000 unit) capsule calcium carbonate 600 mg calcium 600 mg PO BID #60 tabs 02/24/23 Rx (1,500 mg) tablet (Calcium) furosemide 20 mg tablet 20 mg PO QAM PRN edema #30 tabs 02/28/23 Rx potassium chloride 20 mEq 20 meq PO DAILY #90 tabs 04/03/23 Rx tablet,extended release furosemide 20 mg tablet 20 mg PO DAILY #30 tabs 05/20/23 Rx methylprednisolone 4 mg tablets in See Rx Instructions PO PER PKG DIR 05/20/23 05/20/23 Rx a dose pack (Medrol (Ollie)) #21 ea cyclobenzaprine 5 mg tablet 5 mg PO HS PRN muscle spasm #10 05/28/23 Rx tabs hydrocodone 5 mg-acetaminophe
--- NOTE | 2023-07-01 22:40 | PM.IMHP ---
H&P: HPI History of Present Illness Date/Time: 07/01/23 22:40 Chief Complaint: Back pain/fluid retention. Narrative: 84-year-old female present to the emergency department for evaluation of lower back pain, increased lower extremity edema and increased generalized weakness.? Patient states that approximately 1 month ago she had worsening bilateral sciatica then over the course of the months she has had sustained lower back pain.? Patient denies any falls or injuries.? Patient states over the course of the last week she has had difficulty getting up and ambulating due to her lower back pain.? Patient states that she is normally supposed to be taking daily Lasix but due to her decreased ambulation she has not been taking her Lasix and has had worsening lower extremity edema. The patient stated that she has been having lower back pain and that she does not feel that she would be able to tolerate a MRI. BNP 1900. Lumbar spine CT was read as. Likely subacute sacral insufficiency fractures at the bilateral sacral ala and extending across the S2 vertebral body. 2. Chronic burst fractures of L1, L3-L5 with retropulsion contributing to mild to moderate central canal stenosis at the level of L1 and mild central canal stenosis at a few additional lumbar levels. 3. Moderate to severe multilevel lumbar facet osteoarthritis contributing to mild and moderate neural foraminal stenosis at multiple levels on both the left and right. Chest x-ray was read as mild pulmonary edema. The patient was given [place], Lasix, Norvasc, lisinopril, and hydrochlorothiazide. The patient is being admitted to observation status on the date of service of 07/01/2023 Review of Systems Review of Systems: All systems reviewed & are unremarkable except as noted in HPI and below Constitutional: Constitutional: Reports as per HPI and Reports no additional constitutional complaints Eyes: Eyes: Reports as per HPI and Reports no additional eye complaints ENT: Reports system reviewed and no additional complaints, except as documented and Reports Normal hearing present Cardiovascular: Cardiovascular: Reports no additional cardiovascular complaints Respiratory: Respiratory: Reports no additional respiratory complaints and Reports no additional respiratory complaints Gastrointestinal: Gastrointestinal: Reports as per HPI and Reports no additional gastrointestinal complaints Musculoskeletal: Musculoskeletal: Reports no additional musculoskeletal complaints Integumentary/Breasts: Skin/Breast: Reports system reviewed and no additional complaints, except as docu and Reports as per HPI Neurologic: Reports system reviewed and no additional complaints, except as documented, Reports as per HPI and Reports Normal hearing present Psychiatric: Psychiatric: Reports no additional psychiatric complaints and Reports as per HPI Endocrine: Endocrine: Reports no additional endocrine complaints Hematologic/Lymphatic: Hematologic/Lymphatic: Reports no additional hematologic/lymphatic complaints Allergic/Immunologic: Allergic/Immunologic: Reports no additional allergic/immunologic complaints [facility] Past Medical History Medical History (Updated 07/02/23 @ 03:09 by Joanna Sarmiento NP) Acute renal failure (~06/2020) Adult failure to thrive Anxiety Arthritis rt shoulder, back Back pain Bilateral knee pain Chronic back pain Chronic lower back pain Compression fracture Compression fracture of lumbar spine, non-traumatic Fracture lt shoulder General weakness GERD without esophagitis HTN (hypertension) Hyperlipidemia Localized edema Myocardial infarction Osteopenia Paranoia (psychosis) Rhabdomyolysis (~06/2020) Shingles Statin intolerance Vitamin D deficiency Surgical History Surgical History H/O right knee surgery (~1988) ORIF H/O: hysterectomy (~1978) Hx of appendectomy (~1978) Hx of cataract surgery (~1992) bilateral Hx of cholec
--- NOTE | 2023-07-02 | ECHO_ITS ---
Patient Info Name: Ofelia Monzon Age: 83 years : 1940 Gender: Female Ht: 66 in Wt: 222 lbs BSA: 2.21 m2 HR: 78 bpm BP: 186 / 54 mmHg Technical Quality: Good Exam Date: 07/02/2023 10:07 AM Exam Location: [facility] Pulmonary Exam Room: 306 Patient Status: Inpatient Admit Date: 07/01/2023 Staff Ordering Physician: Joanna Sarmiento NP Visual Merchandising Director: Whitney Mike RDCS Attending Provider: Nav Cruz MD Referring Physician: Guillermina PATHAK; Exam Type: CA echo dop color flow w con Study Info Indications - EDEMA Complete two-dimensional, color flow and Doppler transthoracic echocardiogram is performed with contrast to opacify the left ventricle and to improve the deliniation of the left ventricle endocardial borders. Contrast/Agitated Saline Contrast/Ag. Saline: Definity Amount: 2.00 ml Administered By: Whitney Mike [facility] [place] Existing IV Access: Yes IV Access Condition: patent with no signs of infiltration Summary 1. Left ventricular chamber dimension is normal. 2. Definity contrast administered improved wall motion interpretation. 3. Left ventricular systolic function is normal, estimated at 65-70%. 4. There is mild concentric increased left ventricular wall thickness. 5. The left ventricular diastolic function is grade I diastolic dysfunction. 6. E/e' 7 is not elevated. 7. Left atrial chamber dimension is mildly enlarged. 8. There is mild aortic valve sclerosis. 9. The mitral valve has mildly calcified annulus. 10. There is trace tricuspid valve regurgitation. 11. No pulmonary hypertension, estimated pulmonary arterial systolic pressure is 39 mmHg. 12. There is trace pulmonic regurgitation. Left Ventricle E/e' 7 is not elevated. Definity contrast administered improved wall motion interpretation. Left ventricular chamber dimension is normal. Left ventricular systolic function is normal, estimated at 65-70%. There is mild concentric increased left ventricular wall thickness. The left ventricular diastolic function is grade I diastolic dysfunction. Right Ventricle Right ventricular chamber dimension is normal. Right ventricular systolic function is normal. Left Atria Left atrial chamber dimension is mildly enlarged. Right Atria Right atrial chamber dimension is normal. Aortic Valve The aortic valve is trileaflet. There is mild aortic valve sclerosis. There is no aortic valve stenosis. There is no aortic valve regurgitation. Pulmonic Valve There is trace pulmonic regurgitation. Mitral Valve The mitral valve has mildly calcified annulus. There is no mitral valve stenosis. There is no mitral valve regurgitation. Tricuspid Valve There is trace tricuspid valve regurgitation. No pulmonary hypertension, estimated pulmonary arterial systolic pressure is 39 mmHg. Pericardium/Pleural There is no pericardial effusion. Inferior Vena Cava Normal inferior vena cava with >50% collapse upon inspiration consistent with normal right atrial pressure, 5 mmHg. Aorta The aortic root size at the sinus of Valsalva is normal. Left Ventricular Outflow Tract Name Value Normal LVOT 2D LVOT Diameter 1.99 cm LVOT Doppler LVOT Peak
[2023-07-02] MEDS: METHYLNALTREXONE 12 MG/0.6 ML VIAL SUB-Q (00:09)
[2023-07-02 05:27] VITALS: BP 186/54; PULSE 83; RESP 16; TEMP 36.5; O2SAT 98
[2023-07-02 07:00] LABS: Basophils Percent Auto 0.5 % (0.2-1.2); Eosinophils Absolute Auto 0.1 K/mm3 (0-0.3); Eosinophils Percent Auto 1.5 % (0-4.4); Hematocrit 39.7 % (37.0-47.0); Hemoglobin 12.8 g/dL (12.0-15.0); Immature Granulocyte Absolute 0.05 K/mm3 (0.00-0.031); Immature Granulocyte Percent A 0.6 % (0-0.5); Lymphocytes Absolute Auto 1.13 K/mm3 (0.9-3.2); Lymphocytes Percent Auto 12.9 % (18.3-44.2); Mean Corpuscular HGB Conc 32.2 g/dl (32-36); Mean Corpuscular Hemoglobin 30.8 pg (26-34); Mean Corpuscular Volume 95.4 fl (80-100); Mean Platelet Volume 10.1 fl (7.4-10.4); Monocytes Absolute Auto 0.9 K/mm3 (0.1-0.6); Monocytes Percent Auto 10.7 % (2.6-8.5); Neutrophils Absolute Auto 6.5 K/mm3 (1.3-6.7); Neutrophils Percent Auto 73.8 % (45.5-73.1); Platelet Count Result 282 k/mm3 (150-375); Red Blood Count 4.16 M/mm3 (4.2-5.4); Red Cell Distribution Width 12.9 % (11.5-14.5); White Blood Count 8.7 K/mm3 (4.5-10.0)
[2023-07-02 07:16] LABS: Alanine Aminotransferase 16 U/L (6-35); Albumin Level 3.7 g/dL (3.5-5.1); Alkaline Phosphatase 131 U/L (38-126); Anion Gap 6 mmol/L (8-16); Aspartate Amino Transferase 24 U/L (14-36); Bilirubin,Total 1.7 mg/dL (0.2-1.3); Blood Urea Nitrogen 19 mg/dL (7-17); Calcium 8.4 mg/dL (8.4-10.2); Carbon Dioxide 32 mmol/L (22-30); Chloride 96 mmol/L (98-107); Estimated CRCL calculation 49 ml/min; Estimated Glomerular Filt Rate 60; Glucose 109 mg/dL (65-110); Magnesium 1.7 mg/dL (1.6-2.3); Potassium 3.5 mmol/L (3.4-5.0); Sodium 134 mmol/L (137-145)
[2023-07-02 07:55] LABS: Thyroid Stimulating Hormone Reflex 0.666 uIU/mL (0.465-4.68)
[2023-07-02] MEDS: POTASSIUM CHLORIDE 20 MEQ ER TABLET PO (08:41)
[2023-07-02] MEDS: lisinopriL 20 MG TABLET PO (08:42)
[2023-07-02] MEDS: atenoloL 50 MG TABLET PO (08:42)
[2023-07-02] MEDS: hydroCHLOROthiazide 12.5 MG CAPSULE PO (08:42)
[2023-07-02] MEDS: FUROSEMIDE INJ 40 MG/4 ML VIAL IV PUSH ×2 (08:42→20:21)
[2023-07-02] MEDS: amLODIPine BESYLATE 5 MG TABLET 10 MG PO (08:42)
[2023-07-02] MEDS: PANTOPRAZOLE 40 MG TABLET PO (08:42)
[2023-07-02] MEDS: CLOPIDOGREL BISULFATE 75 MG TABLET PO (08:43)
[2023-07-02] MEDS: BISACODYL 10 MG SUPPOSITORY RECTAL ×2 (08:43→10:47)
[2023-07-02] MEDS: ENOXAPARIN 40 MG/0.4 ML SYRINGE SUB-Q (08:43)
[2023-07-02] MEDS: LIDOCAINE 5% PATCH 1 PATCH TOPICAL (08:43)
[2023-07-02 09:07] VITALS: O2SAT 94
[2023-07-02] MEDS: PERFLUTREN LIPID MICROSPHERES 1.5 ML VIAL DILUTED TO 10 ML TOTAL VOLUME IV PUSH (10:30)
--- NOTE | 2023-07-02 11:39 | PM.IMPN ---
Progress Note: A&P Assessment and Plan (1) Edema: Code(s): R60.9 - Edema, unspecified Status: Acute Assessment and Plan: Venous Dopplers have been ordered. Echo has been ordered. The patient is on IV Lasix at this time. The left leg appears to be lymphedema. The patient is not short of breath and she is on room air. Her chest x-ray really shows some mild pulmonary edema. 01/30/2023 Patient breathing is better. Edema is slightly better. Plan is to continue with diuresis. (2) HTN (hypertension): Qualifiers: Hypertension type: unspecified Qualified Code(s): I10 - Essential (primary) hypertension Code(s): I10 - Essential (primary) hypertension Status: Acute Assessment and Plan: Stable, continue current treatment. (3) CAD (coronary artery disease): Qualifiers: Coronary Disease-Associated Artery/Lesion type: unspecified vessel or lesion type [place] vs. transplanted heart: [place] heart Associated angina: without angina Qualified Code(s): I25.10 - Atherosclerotic heart disease of [place] coronary artery without angina pectoris Code(s): I25.10 - Atherosclerotic heart disease of [place] coronary artery without angina pectoris Status: Acute Assessment and Plan: Stable, continue with Plavix. P.r.n. nitroglycerin. The patient has a history of coronary stents. (4) Hyperlipidemia: Qualifiers: Hyperlipidemia type: unspecified Qualified Code(s): E78.5 - Hyperlipidemia, unspecified Code(s): E78.5 - Hyperlipidemia, unspecified Status: Acute Assessment and Plan: Stable cough continue with heart healthy diet. (5) Anxiety: Code(s): F41.9 - Anxiety disorder, unspecified Status: Acute Assessment and Plan: Stable continue with Valium (6) CKD (chronic kidney disease) stage 3, GFR 30-59 ml/min: Qualifiers: Chronic kidney disease stage 3 subtype: stage 3a (GFR 45-59) Qualified Code(s): N18.31 - Chronic kidney disease, stage 3a Code(s): N18.3 - Chronic kidney disease, stage 3 (moderate) Status: Acute Assessment and Plan: Patient GFR is greater than 60 and her BUN is 18 creatinine 0.8 (7) Back pain: Code(s): M54.9 - Dorsalgia, unspecified Status: Acute Assessment and Plan: Admitting physician discussed a neurosurgeon consult and an MRI. The patient stated this is chronic and she does not think she could tolerate an MRI. This is chronic and she stated that she just wants pain medication that she is on chronically. I did offer her PT and OT. Continue with her home medications of Tylenol, Valium, hydrocodone, and lidocaine patches. The patient stated that she has tried steroids in the past and have not worked for her. ER did consult Neurosurgery. Subjective Date/time seen: 07/02/23 11:39 Interval history: Patient was seen during the morning rounds today. Patient has mild shortness of breath. No chest pain. Pain control. No abdominal pain, nausea, no vomiting. Mood stable. Review of Systems Review of Systems: All systems reviewed & are unremarkable except as noted in HPI and below Constitutional: Constitutional: Reports as per HPI and Reports no additional constitutional complaints Eyes: Eyes: Reports as per HPI and Reports no additional eye complaints ENT: Reports system reviewed and no additional complaints, except as documented and Reports Normal hearing present Cardiovascular: Cardiovascular: Reports no additional cardiovascular complaints Respiratory: Respiratory: Reports no additional respiratory complaints and Reports no additional respiratory complaints Gastrointestinal: Gastrointestinal: Reports as per HPI and Reports no additional gastrointestinal complaints Musculoskeletal: Musculoskeletal: Reports no additional musculoskeletal complaints Integumentary/Breasts: Skin/Breast: Reports system reviewed and no additional complaints, excep
[2023-07-02 13:41] VITALS: BP 167/68; PULSE 70; RESP 16; TEMP 36.4; O2SAT 97
--- NOTE | 2023-07-02 14:04 | IVDEFINITY ---
Prior to administration of IV Definity the patient was educated on the risks and benefits of the imaging enhancing agent including potential adverse side effects. The patient verbalized understanding. Allergies were verified. No exclusion criteria were identified and at least one of the following inclusion criteria were met: 1) physician request, 2) patient technically difficult to image (per the [place] Society of Echocardiography guidelines of two or more segments not discernable within the apical view), or 3) questionable left ventricular function. ?
--- NOTE | 2023-07-02 16:17 | PCPTNOTE ---
Attempted PT evaluation. Pt refused stating she is too tired and needs to rest. Will follow.
[2023-07-02] MEDS: atenoloL 50 MG TABLET 100 MG PO (20:20)
[2023-07-02] MEDS: HYDROcodone/acetaminophen (*CRX) 5-325 MG TABLET 1 TAB PO (20:20)
[2023-07-02 21:44] VITALS: BP 142/51; PULSE 72; RESP 16; TEMP 37.1; O2SAT 95
[2023-07-03 05:36] VITALS: BP 166/51; PULSE 64; RESP 14; TEMP 37.1; O2SAT 94
[2023-07-03] MEDS: atenoloL 50 MG TABLET PO (08:32)
[2023-07-03] MEDS: ENOXAPARIN 40 MG/0.4 ML SYRINGE SUB-Q (08:32)
[2023-07-03] MEDS: FUROSEMIDE INJ 40 MG/4 ML VIAL IV PUSH ×2 (08:33→20:58)
[2023-07-03] MEDS: lisinopriL 20 MG TABLET PO (08:33)
[2023-07-03] MEDS: POTASSIUM CHLORIDE 20 MEQ ER TABLET PO (08:33)
[2023-07-03] MEDS: LIDOCAINE 5% PATCH 1 PATCH TOPICAL (08:33)
[2023-07-03] MEDS: hydroCHLOROthiazide 12.5 MG CAPSULE PO (08:33)
[2023-07-03] MEDS: PANTOPRAZOLE 40 MG TABLET PO (08:33)
[2023-07-03] MEDS: amLODIPine BESYLATE 5 MG TABLET 10 MG PO (08:33)
[2023-07-03] MEDS: CLOPIDOGREL BISULFATE 75 MG TABLET PO (08:33)
--- NOTE | 2023-07-03 12:49 | WPDNEUROSGPN ---
Progress Note: A&P Assessment and Plan (1) Back pain: Code(s): M54.9 - Dorsalgia, unspecified Status: Acute (2) Compression fracture: Status: Acute Plan I have attempted the last 2 days to see the patient who, at the time of my visit, has required extensive time using the restroom and getting cleaned up. I have not been able to see or examine her personally, although I have witnessed her standing and pulling her legs up to her abdomen in the last 2 days. Per the notes from this hospitalization, the pain she is currently experiencing in her back is chronic for which she is being treated with hydrocodone, valium, tylenol, and lidocaine patches. When MRI was discussed with her, she declined. She was offered PT/OT as well, but she is reportedly interested in being treated with only pain medication at this time. On review of her imaging, she has a CT lumbar spine showing multiple chronic compression fractures, most significantly at L1 which has retropulsion and some canal stenosis. She also appears to have poor bone quality. Without an MRI, it is difficult to determine the amount of stenosis and the age of the fractures. However, I agree with Dr. Mejia that she may benefit from an LSO brace for comfort. I would also recommend PT/OT and outpatient Pain Management evaluation for consideration of ISADORA, facet injections, etc. I would not recommend surgery. For the sacral insufficiency fractures, this is outside my scope of practice and may be better addressed by Orthopedics, although I doubt any intervention is required. She may also benefit from an outpatient osteoporosis workup/treatment if she has not had one to date. Subjective Date/time seen: 07/03/23 12:49 Interval history: I have attempted the last 2 days to see the patient who, at the time of my visit, has required extensive time using the restroom and getting cleaned up. I have not been able to see or examine her personally, although I have witnessed her standing and pulling her legs up to her abdomen in the last 2 days. Objective Data Vital Signs Vital Signs: Vital Signs - 24 hr 07/02/23 13:41 07/02/23 21:44 07/02/23 20:00 Temperature 97.6 F 98.7 F Pulse Rate 70 72 Respiratory Rate 16 16 Blood Pressure 167/68 H 142/51 H Pulse Oximetry 97 95 Oxygen Delivery Room Air 07/03/23 05:36 07/03/23 08:00 Temperature 98.8 F Pulse Rate 64 Respiratory Rate 14 Blood Pressure 166/51 H Pulse Oximetry 94 Oxygen Delivery Room Air Intake/Output Intake/Output: Intake & Output 06/30/23 07/01/23 07/02/23 07/03/23 23:59 23:59 23:59 23:59 Intake Total 1590 990 Output Total 3200 1100 Balance -1610 -110 Meds/Results Medications: Active Medications Generic Name Dose Route Start Last Admin Trade Name Freq PRN Reason Stop Dose Admin Acetaminophen 650 mg 07/01/23 22:52 Acetaminophen 325 Mg Tablet PO Q4H PRN Mild Pain (1-3) Or Fever Hydrocodone Bitart/Acetaminophen 1 tab 07/01/23 22:52 07/02/23 20:20 Hydrocodone/Acetaminophen (*Crx) 5-325 Mg Tablet PO 1 tab Q12H PRN Administration pain 4-10 Amlodipine Besylate 10 mg 07/02/23 09:00 07/03/23 08:33 Amlodipine Besylate 5 Mg Tablet PO 10 mg DAILY VIELKA Administration Atenolol 50 mg 07/02/23 09:00 07/03/23 08:32 Atenolol 50 Mg Tablet PO 50 mg DAILY VIELKA Administration Atenolol 100 mg 07/02/23 21:00 07/02/23 20:20 Atenolol 50 Mg Tablet PO 100 mg HS VIELKA Administration Clopidogrel Bisulfate 75 mg 07/02/23 09:00 07/03/23 08:33 Clopidogrel Bisulfate 75 Mg Tablet PO 75 mg DAILY VIELKA Administration Diazepam 5 mg 07/01/23 22:52 Diazepam (*Crx) 5 Mg Tablet PO DAILY PRN anxiety Enoxaparin Sodium 40 mg 07/02/23 09:00 07/03/23 08:32 Enoxaparin 40 Mg/0.4 Ml Syringe SUB-Q 40 mg DAILY VIELKA Administration Furosemide 40 mg 07/01/23 21:00 07/03/23 08:33 Furosemide Inj 40 Mg/4 Ml Vial IV PUSH 40 mg
[2023-07-03 13:11] LABS: Toxigenic C. Diff NEGATIVE (NEGATIVE)
[2023-07-03 14:00] VITALS: BP 130/53; PULSE 62; RESP 18; TEMP 36.6; O2SAT 97
[2023-07-03] MEDS: ACETAMINOPHEN 325 MG TABLET 650 MG PO (14:19)
--- NOTE | 2023-07-03 15:12 | PM.IMPN ---
Progress Note: A&P Assessment and Plan (1) Edema: Code(s): R60.9 - Edema, unspecified Status: Acute Assessment and Plan: Venous Dopplers have been ordered. Echo has been ordered. The patient is on IV Lasix at this time. The left leg appears to be lymphedema. The patient is not short of breath and she is on room air. Her chest x-ray really shows some mild pulmonary edema. 01/30/2023 Patient breathing is better. Edema is slightly better. Plan is to continue with diuresis. (2) HTN (hypertension): Qualifiers: Hypertension type: unspecified Qualified Code(s): I10 - Essential (primary) hypertension Code(s): I10 - Essential (primary) hypertension Status: Acute Assessment and Plan: Stable, continue current treatment. (3) CAD (coronary artery disease): Qualifiers: Coronary Disease-Associated Artery/Lesion type: unspecified vessel or lesion type [place] vs. transplanted heart: [place] heart Associated angina: without angina Qualified Code(s): I25.10 - Atherosclerotic heart disease of [place] coronary artery without angina pectoris Code(s): I25.10 - Atherosclerotic heart disease of [place] coronary artery without angina pectoris Status: Acute Assessment and Plan: Stable, continue with Plavix. P.r.n. nitroglycerin. The patient has a history of coronary stents. (4) Hyperlipidemia: Qualifiers: Hyperlipidemia type: unspecified Qualified Code(s): E78.5 - Hyperlipidemia, unspecified Code(s): E78.5 - Hyperlipidemia, unspecified Status: Acute Assessment and Plan: Stable cough continue with heart healthy diet. (5) Anxiety: Code(s): F41.9 - Anxiety disorder, unspecified Status: Acute Assessment and Plan: Stable continue with Valium (6) CKD (chronic kidney disease) stage 3, GFR 30-59 ml/min: Qualifiers: Chronic kidney disease stage 3 subtype: stage 3a (GFR 45-59) Qualified Code(s): N18.31 - Chronic kidney disease, stage 3a Code(s): N18.3 - Chronic kidney disease, stage 3 (moderate) Status: Acute Assessment and Plan: Patient GFR is greater than 60 and her BUN is 18 creatinine 0.8 (7) Back pain: Code(s): M54.9 - Dorsalgia, unspecified Status: Acute Assessment and Plan: This is 84-year-old female presents to the ED for evaluation of lower back pain increased lower extremity edema and generalized weakness. No fall or injury. Ambulatory dysfunction due to her low back pain. She has been noncompliant with her Lasix. Number CT was done which showed likely subacute sacral insufficiency fracture the bilateral sacral ala and extending across the S2 vertebral body. Chronic burst fractures of L1, L3-L5 with retropulsion contributing to [id number] central canal stenosis at the level of L1 and mild central canal stenosis at a few additional lumbar levels. Moderate to severe multilevel lumbar facet osteoarthritis contributing to mild moderate neural foraminal stenosis at multiple levels on both the left and right. Chest x-ray also read as mild pulmonary edema. BNP is 1900. Venous duplex with no DVT and echo ordered with EF 65-70% mild concentric left ventricular wall thickness grade 1 diastolic dysfunction. No pulmonary hypertension. No valvular abnormality. initiated with IV Lasix b.i.d.. She also has underlying lymphedema. History of coronary artery disease status post stents on Plavix. Anxiety disorder on Valium. CKD stage 3. Neurosurgery has been consulted for her back pain. Her back pain is chronic. Refused MRI evaluation. PT OT to see. Likely needs placement. Labs unremarkable UA with few WBC urine culture with E coli. Asymptomatic bacteriuria will hold off any antibiotic treatment. accelerated hypertension improving Subjective Date/time seen: 07/03/23 15:12 Interval history: No new complaints no overnight events chart reviewed. Leg swelling
--- NOTE | 2023-07-03 18:04 | PC.NURSE ---
Esdras to fit patient for LSO brace on 07/04/23 at 1200.
[2023-07-03 20:48] VITALS: PULSE 64
[2023-07-03] MEDS: atenoloL 50 MG TABLET 100 MG PO (20:48)
[2023-07-03 20:58] VITALS: BP 151/57; PULSE 64; O2SAT 98
[2023-07-03 21:28] VITALS: BP 142/61; PULSE 6; PULSE 63; RESP 18; TEMP 35.9; O2SAT 97
[2023-07-03] MEDS: HYDROcodone/acetaminophen (*CRX) 5-325 MG TABLET 1 TAB PO (21:28)
[2023-07-03 23:44] VITALS: O2SAT 97
[2023-07-04] MEDS: ACETAMINOPHEN 325 MG TABLET 650 MG PO ×3 (01:49→22:46)
[2023-07-04 05:48] VITALS: BP 160/43; PULSE 61; RESP 18; TEMP 36.3; O2SAT 96
[2023-07-04 09:24] VITALS: PULSE 84
[2023-07-04] MEDS: amLODIPine BESYLATE 5 MG TABLET 10 MG PO (09:24)
[2023-07-04] MEDS: ENOXAPARIN 40 MG/0.4 ML SYRINGE SUB-Q (09:24)
[2023-07-04] MEDS: PANTOPRAZOLE 40 MG TABLET PO (09:24)
[2023-07-04] MEDS: CLOPIDOGREL BISULFATE 75 MG TABLET PO (09:24)
[2023-07-04] MEDS: lisinopriL 20 MG TABLET PO (09:24)
[2023-07-04] MEDS: hydroCHLOROthiazide 12.5 MG CAPSULE PO (09:24)
[2023-07-04] MEDS: atenoloL 50 MG TABLET PO (09:24)
[2023-07-04] MEDS: POTASSIUM CHLORIDE 20 MEQ ER TABLET PO (09:24)
[2023-07-04] MEDS: FUROSEMIDE INJ 40 MG/4 ML VIAL IV PUSH (09:24)
[2023-07-04] MEDS: LIDOCAINE 5% PATCH 1 PATCH TOPICAL (09:25)
[2023-07-04 14:00] VITALS: BP 113/57; PULSE 58; RESP 16; TEMP 36.4; O2SAT 97
--- NOTE | 2023-07-04 16:04 | PM.IMPN ---
Progress Note: A&P Assessment and Plan (1) Edema: Code(s): R60.9 - Edema, unspecified Status: Acute (2) HTN (hypertension): Qualifiers: Hypertension type: unspecified Qualified Code(s): I10 - Essential (primary) hypertension Code(s): I10 - Essential (primary) hypertension Status: Acute (3) CAD (coronary artery disease): Qualifiers: Coronary Disease-Associated Artery/Lesion type: unspecified vessel or lesion type [place] vs. transplanted heart: [place] heart Associated angina: without angina Qualified Code(s): I25.10 - Atherosclerotic heart disease of [place] coronary artery without angina pectoris Code(s): I25.10 - Atherosclerotic heart disease of [place] coronary artery without angina pectoris Status: Acute (4) Hyperlipidemia: Qualifiers: Hyperlipidemia type: unspecified Qualified Code(s): E78.5 - Hyperlipidemia, unspecified Code(s): E78.5 - Hyperlipidemia, unspecified Status: Acute (5) Anxiety: Code(s): F41.9 - Anxiety disorder, unspecified Status: Acute (6) CKD (chronic kidney disease) stage 3, GFR 30-59 ml/min: Qualifiers: Chronic kidney disease stage 3 subtype: stage 3a (GFR 45-59) Qualified Code(s): N18.31 - Chronic kidney disease, stage 3a Code(s): N18.3 - Chronic kidney disease, stage 3 (moderate) Status: Acute (7) Back pain: Code(s): M54.9 - Dorsalgia, unspecified Status: Acute Assessment and Plan: This is 84-year-old female presents to the ED for evaluation of lower back pain increased lower extremity edema and generalized weakness. No fall or injury. Ambulatory dysfunction due to her low back pain. She has been noncompliant with her Lasix. Number CT was done which showed likely subacute sacral insufficiency fracture the bilateral sacral ala and extending across the S2 vertebral body. Chronic burst fractures of L1, L3-L5 with retropulsion contributing to [id number] central canal stenosis at the level of L1 and mild central canal stenosis at a few additional lumbar levels. Moderate to severe multilevel lumbar facet osteoarthritis contributing to mild moderate neural foraminal stenosis at multiple levels on both the left and right. Chest x-ray also read as mild pulmonary edema. BNP is 1900. Venous duplex with no DVT and echo ordered with EF 65-70% mild concentric left ventricular wall thickness grade 1 diastolic dysfunction. No pulmonary hypertension. No valvular abnormality. initiated with IV Lasix b.i.d. will switch Lasix to oral. She also has underlying lymphedema. History of coronary artery disease status post stents on Plavix. Anxiety disorder on Valium. CKD stage 3. Neurosurgery has been consulted for her back pain. Her back pain is chronic. Refused MRI evaluation. PT OT to see. May need placement. Labs unremarkable UA with few WBC urine culture with E coli. Asymptomatic bacteriuria will hold off any antibiotic treatment. accelerated hypertension improving. Subjective Date/time seen: 07/04/23 16:04 Interval history: Back pain is improving. Leg swelling has improved. No shortness of breath. Working with therapy. Review of Systems Review of Systems: All systems reviewed & are unremarkable except as noted in HPI and below Exam Narrative: APPEARANCE: Well appearing, no pain, no distress, well-nourished. HEAD: normocephalic, atraumatic. EYES: PERRLA/EOMI, conjunctivae clear. NECK: Supple. No adenopathy, no masses. RESPIRATORY: Airway patent, respirations nonlabored. Clear to auscultation bilaterally, no rales, rhonchi, wheezing. CARDIOVASCULAR: Regular rate and rhythm without murmurs rubs or gallops. ABDOMINAL: Soft, nontender, nondistended, normal bowel sounds MUSCULOSKELETAL: Trace edema bilateral lower extremity no cyanosis or clubbing NEURO: Alert. Cranial nerves II through XII intact. Objective Data Vital Signs Vital Signs: Lianne
[2023-07-04 20:00] VITALS: PULSE 66; RESP 20; O2SAT 98
[2023-07-04 20:45] VITALS: PULSE 64
[2023-07-04] MEDS: atenoloL 50 MG TABLET 100 MG PO (20:45)
[2023-07-04] MEDS: HYDROcodone/acetaminophen (*CRX) 5-325 MG TABLET 1 TAB PO (20:47)
[2023-07-04 22:00] VITALS: BP 159/65; PULSE 66; RESP 20; TEMP 36.9; O2SAT 98
[2023-07-05 06:00] VITALS: BP 150/57; PULSE 58; RESP 20; TEMP 36.4; O2SAT 97
[2023-07-05 07:22] LABS: Basophils Absolute Auto 0.1 K/mm3 (0.0-0.1); Basophils Percent Auto 0.8 % (0.2-1.2); Eosinophils Absolute Auto 0.5 K/mm3 (0-0.3); Eosinophils Percent Auto 6.3 % (0-4.4); Hematocrit 37.8 % (37.0-47.0); Hemoglobin 12.2 g/dL (12.0-15.0); Immature Granulocyte Absolute 0.04 K/mm3 (0.00-0.031); Immature Granulocyte Percent A 0.5 % (0-0.5); Lymphocytes Absolute Auto 1.15 K/mm3 (0.9-3.2); Lymphocytes Percent Auto 14.5 % (18.3-44.2); Mean Corpuscular HGB Conc 32.3 g/dl (32-36); Mean Corpuscular Volume 95.9 fl (80-100); Mean Platelet Volume 10.2 fl (7.4-10.4); Monocytes Absolute Auto 0.8 K/mm3 (0.1-0.6); Monocytes Percent Auto 9.7 % (2.6-8.5); Neutrophils Absolute Auto 5.4 K/mm3 (1.3-6.7); Neutrophils Percent Auto 68.2 % (45.5-73.1); Platelet Count Result 265 k/mm3 (150-375); Red Blood Count 3.94 M/mm3 (4.2-5.4); Red Cell Distribution Width 12.8 % (11.5-14.5); White Blood Count 7.9 K/mm3 (4.5-10.0)
[2023-07-05 07:38] LABS: Alanine Aminotransferase 18 U/L (6-35); Albumin Level 3.3 g/dL (3.5-5.1); Alkaline Phosphatase 107 U/L (38-126); Anion Gap 3 mmol/L (8-16); Aspartate Amino Transferase 25 U/L (14-36); Bilirubin,Total 0.7 mg/dL (0.2-1.3); Blood Urea Nitrogen 36 mg/dL (7-17); Calcium 8.4 mg/dL (8.4-10.2); Carbon Dioxide 30 mmol/L (22-30); Chloride 95 mmol/L (98-107); Estimated CRCL calculation 44 ml/min; Estimated Glomerular Filt Rate 53; Glucose 101 mg/dL (65-110); Magnesium 1.8 mg/dL (1.6-2.3); Potassium 3.7 mmol/L (3.4-5.0); Sodium 128 mmol/L (137-145)
[2023-07-05 08:34] VITALS: PULSE 59
[2023-07-05] MEDS: FUROSEMIDE 40 MG TABLET PO (08:34)
[2023-07-05] MEDS: atenoloL 50 MG TABLET PO (08:34)
[2023-07-05] MEDS: amLODIPine BESYLATE 5 MG TABLET 10 MG PO (08:34)
[2023-07-05 08:35] VITALS: O2SAT 97
[2023-07-05] MEDS: diazePAM (*CRX) 5 MG TABLET PO (08:35)
[2023-07-05] MEDS: CLOPIDOGREL BISULFATE 75 MG TABLET PO (08:35)
[2023-07-05] MEDS: POTASSIUM CHLORIDE 20 MEQ ER TABLET PO (08:35)
[2023-07-05] MEDS: ENOXAPARIN 40 MG/0.4 ML SYRINGE SUB-Q (08:35)
[2023-07-05] MEDS: lisinopriL 20 MG TABLET PO (08:35)
[2023-07-05] MEDS: PANTOPRAZOLE 40 MG TABLET PO (08:35)
[2023-07-05] MEDS: hydroCHLOROthiazide 12.5 MG CAPSULE PO (08:35)
[2023-07-05] MEDS: LIDOCAINE 5% PATCH 1 PATCH TOPICAL (08:36)
[2023-07-05 14:00] VITALS: BP 134/59; PULSE 56; RESP 20; TEMP 36.8; O2SAT 96
--- NOTE | 2023-07-05 14:38 | PM.DS ---
DS: Admitting Diagnosis Discharge Date 07/05/2023 Admitting Diagnosis low back pain DS: Discharge Diagnosis Discharge Diagnosis (1) Compression fracture: Status: Acute (2) Noncompliance with medication regimen: Code(s): Z91.148 - Patient's other noncompliance with medication regimen for other reason Status: Acute (3) HTN (hypertension): Qualifiers: Hypertension type: unspecified Qualified Code(s): I10 - Essential (primary) hypertension Code(s): I10 - Essential (primary) hypertension Status: Acute (4) CAD (coronary artery disease): Qualifiers: Coronary Disease-Associated Artery/Lesion type: unspecified vessel or lesion type [place] vs. transplanted heart: [place] heart Associated angina: without angina Qualified Code(s): I25.10 - Atherosclerotic heart disease of [place] coronary artery without angina pectoris Code(s): I25.10 - Atherosclerotic heart disease of [place] coronary artery without angina pectoris Status: Acute (5) Hyperlipidemia: Qualifiers: Hyperlipidemia type: unspecified Qualified Code(s): E78.5 - Hyperlipidemia, unspecified Code(s): E78.5 - Hyperlipidemia, unspecified Status: Acute (6) Anxiety: Code(s): F41.9 - Anxiety disorder, unspecified Status: Acute (7) GERD without esophagitis: Code(s): K21.9 - Gastro-esophageal reflux disease without esophagitis Status: Acute (8) CKD (chronic kidney disease) stage 3, GFR 30-59 ml/min: Qualifiers: Chronic kidney disease stage 3 subtype: stage 3a (GFR 45-59) Qualified Code(s): N18.31 - Chronic kidney disease, stage 3a Code(s): N18.3 - Chronic kidney disease, stage 3 (moderate) Status: Acute (9) Bilateral knee pain: Qualifiers: Chronicity: chronic Qualified Code(s): M25.561 - Pain in right knee; M25.562 - Pain in left knee; G89.29 - Other chronic pain Code(s): M25.561 - Pain in right knee; M25.562 - Pain in left knee Status: Acute (10) Compression fracture of lumbar spine, non-traumatic: Code(s): M48.56XA - Collapsed vertebra, not elsewhere classified, lumbar region, initial encounter for fracture Status: Acute (11) Vitamin D deficiency: Code(s): E55.9 - Vitamin D deficiency, unspecified Status: Acute (12) Statin intolerance: Code(s): Z78.9 - Other specified health status Status: Acute (13) Osteopenia: Code(s): M85.80 - Other specified disorders of bone density and structure, unspecified site Status: Acute DS: Summary Hospital Course Reason for hospitalization: low back pain Hospital Course: 07/01/2023 ... H&P: 84-year-old female present to the emergency department for evaluation of lower back pain, increased lower extremity edema and increased generalized weakness.? Patient states that approximately 1 month ago she had worsening bilateral sciatica then over the course of the months she has had sustained lower back pain.? Patient denies any falls or injuries.? Patient states over the course of the last week she has had difficulty getting up and ambulating due to her lower back pain.? Patient states that she is normally supposed to be taking daily Lasix but due to her decreased ambulation she has not been taking her Lasix and has had worsening lower extremity edema.? The patient stated that she has been having lower back pain and that she does not feel that she would be able to tolerate a MRI.? BNP 1900.? Lumbar spine CT was read as. Likely subacute sacral insufficiency fractures at the bilateral sacral ala and extending across the S2 vertebral body. 2. Chronic burst fractures of L1, L3-L5 with retropulsion contributing to mild to moderate central canal stenosis at the level of L1 and mild central canal stenosis at a few additional lumbar levels. 3. Moderate to severe multilevel lumbar facet osteoarthritis contributing to mild and moderate neural forami
== END 2023-07-05 17:07 | disposition swing bed (61) ==
LOC: ANHED 19:00 → ANH3MEDSUR 19:22
PROVIDERS: Emergency Medicine; Internal Medicine; Nurse Practitioner; Admitting Provider Internal Medicine; Emergency Provider Emergency Medicine; PCP Family Medicine; Visit Provider Family Medicine
DX: R60.9 Edema, unspecified (principal); I13.0 Hypertensive heart and chronic kidney disease with heart failure and stage 1 through stage 4 chronic kidney disease, or unspecified chronic kidney disease; N18.31 Chronic kidney disease, stage 3a; I50.1 Left ventricular failure, unspecified; I25.10 Atherosclerotic heart disease of native coronary artery without angina pectoris; Z95.5 Presence of coronary angioplasty implant and graft; F41.9 Anxiety disorder, unspecified; N39.0 Urinary tract infection, site not specified; B96.20 Unspecified Escherichia coli [E. coli] as the cause of diseases classified elsewhere; R60.0 Localized edema; R53.1 Weakness; R62.7 Adult failure to thrive; Z68.35 Body mass index [BMI] 35.0-35.9, adult; K21.9 Gastro-esophageal reflux disease without esophagitis; M19.011 Primary osteoarthritis, right shoulder; M85.80 Other specified disorders of bone density and structure, unspecified site; M48.56XA Collapsed vertebra, not elsewhere classified, lumbar region, initial encounter for fracture; G89.29 Other chronic pain; M25.561 Pain in right knee; M25.562 Pain in left knee; Z91.148 Patient's other noncompliance with medication regimen for other reason; R94.31 Abnormal electrocardiogram [ECG] [EKG]; M47.816 Spondylosis without myelopathy or radiculopathy, lumbar region; I25.2 Old myocardial infarction; F22 Delusional disorders; E78.5 Hyperlipidemia, unspecified; E55.9 Vitamin D deficiency, unspecified; Z66 Do not resuscitate; Z79.899 Other long term (current) drug therapy; Z82.49 Family history of ischemic heart disease and other diseases of the circulatory system
CPT/HCPCS: 36415; 71046; 72131; 80053; 81001; 83735; 83880; 84100; 84443; 84484; 85025; 85610; 85730; 87077; 87086; 87186; 87493; 93005; 93970; 96372; 96374; 96375; 96376; 97116; 97161; 97165; 97530; 97535; 99285; A9270; C8929; G0378; J1650; J1940; J2212; Q9957

== ENCOUNTER 2023-07-05 17:42 | Inpatient (IN) | payer MEDICARE, MEDICAID, SELFPAY ==
[2023-07-05 17:45] VITALS: BMI 32.6
--- NOTE | 2023-07-05 17:45 | ADMGEN ---
This patient, Ofelia Monzon, was admitted to 2nd Floor Room 209-1 as a skilled swing bed. Patient/family oriented to hospital policies and general routines including ID bracelet, bed and alarms, visiting hours, pain management, procedures, bathroom and other care routines, personal items, smoking policy, room service/diet, and visiting hours. Information on how to activate the Rapid Response Team has been discussed. Patient/Family are encouraged to report perceived risks to care and to ask questions if they do not understand what they are told or what they should do.
[2023-07-05 18:00] VITALS: BP 159/63; PULSE 60; RESP 18; TEMP 36.4; O2SAT 95
[2023-07-05 21:45] VITALS: PULSE 59
[2023-07-05] MEDS: atenoloL 50 MG TABLET 100 MG PO (21:45)
[2023-07-05] MEDS: HYDROcodone/acetaminophen (*CRX) 5-325 MG TABLET 1 TAB PO (21:46)
--- NOTE | 2023-07-05 21:52 | PC.NURSE ---
Pt communicated to this RN that she will contact Grisel from [facility] to see if the arts administrator or manager at the other facility will bring the pt clothes from the assisted living. Denture removed and placed in a cup on bedside table.
[2023-07-06] VITALS: BP 145/54; PULSE 59; RESP 17; TEMP 36.3; O2SAT 97
[2023-07-06 08:00] VITALS: BP 150/62; PULSE 62; RESP 14; TEMP 36.8; O2SAT 97
[2023-07-06 09:30] VITALS: PULSE 62
[2023-07-06] MEDS: atenoloL 50 MG TABLET PO (09:30)
[2023-07-06] MEDS: CLOPIDOGREL BISULFATE 75 MG TABLET PO (09:30)
[2023-07-06] MEDS: FUROSEMIDE 20 MG TABLET 40 MG PO (09:30)
[2023-07-06] MEDS: HYDROcodone/acetaminophen (*CRX) 5-325 MG TABLET 1 TAB PO ×2 (09:41→21:11)
[2023-07-06] MEDS: PANTOPRAZOLE 40 MG TABLET PO (09:43)
[2023-07-06] MEDS: LIDOCAINE 5% PATCH 1 PATCH TOPICAL (09:43)
[2023-07-06] MEDS: amLODIPine BESYLATE 5 MG TABLET 10 MG PO (09:45)
[2023-07-06] MEDS: hydroCHLOROthiazide 12.5 MG CAPSULE PO (09:46)
[2023-07-06] MEDS: POTASSIUM CHLORIDE 20 MEQ ER TABLET PO (09:47)
[2023-07-06] MEDS: lisinopriL 20 MG TABLET PO (09:48)
--- NOTE | 2023-07-06 11:18 | PM.IMHP ---
H&P: HPI History of Present Illness Date/Time: 07/06/23 1000 Chief Complaint: Weakness Narrative: Ms. Monzon is an 83-year-old female who presents to the hospital at this time for rehab. Patient was at outside facility for low back pain and lower extremity edema. Upon evaluation at outside facility patient was noted to have chronic burst fractures of L1, L3 through L5 with retropulsion contributing to mild to moderate central canal stenosis at the level of L1 and mild central canal stenosis at a few additional lumbar levels. Patient was also noted to have moderate to severe multilevel lumbar facet osteoarthritis contributing to mild and moderate neural foraminal stenosis at multiple levels on both right and left sides. Patient was also noted to have mild pulmonary edema and she was given Lasix. Patient was to undergo MRI, but she did not feel she could tolerate it so this was unable to be performed. Patient was diuresed during hospitalization and did have an echo Doppler performed. Patient was noted to have mild concentric left ventricular wall thickness with grade 1 diastolic dysfunction. Patient's ejection fraction was noted to be 65-70%. Patient also has a known history of chronic lymphedema to bilateral lower extremities. At outside facility patient had been seen by Neurosurgery and no surgical intervention was needed, and patient stated that she wanted to be bandage with pain medication. Patient had also stated that she did not want any physical therapy, but after hospitalist spoke with patient was decided that patient did want to participate physical therapy. Patient was then transferred to this facility for swing bed status and rehab. Patient states that she does have mild pain today, but her pain has significantly improved. Patient denies any chest pain, shortness of breath, orthopnea, or PND. Patient denies any dysuria, hematuria, frequency, or urgency. Patient states this is the best she has felt in some time. Patient does have a known history of coronary artery disease status post stent placement, anxiety disorder for which she takes Valium, hypertension, dyslipidemia, and chronic kidney disease. Review of Systems Review of Systems: A 12 point review of systems was completed with patient all pertinent positive and negative per HPI the remainder are unremarkable. REPLACED BY [facility] Past Medical History Medical History (Updated 07/02/23 @ 03:09 by Joanna Sarmiento NP) Acute renal failure (~06/2020) Adult failure to thrive Anxiety Arthritis rt shoulder, back Back pain Bilateral knee pain Chronic back pain Chronic lower back pain Compression fracture Compression fracture of lumbar spine, non-traumatic Fracture lt shoulder General weakness GERD without esophagitis HTN (hypertension) Hyperlipidemia Localized edema Myocardial infarction Osteopenia Paranoia (psychosis) Rhabdomyolysis (~06/2020) Shingles Statin intolerance Vitamin D deficiency Surgical History Surgical History H/O right knee surgery (~1988) ORIF H/O: hysterectomy (~1978) Hx of appendectomy (~1978) Hx of cataract surgery (~1992) bilateral Hx of cholecystectomy (~1992) Hx of heart artery stent (~2010) x3 Hx of shoulder surgery (~2013) lt shoulder replacement Family History Family History Mother Cerebrovascular accident, Onset Age: 77 Patient's mother is Family history of coronary artery disease Family history of osteoarthritis Family history of congestive heart failure Father Family history of lung cancer Patient's father is Family history of malignant neoplasm Grandparent Cerebrovascular accident Family history of heart disease in male family member before age 55 Social History Social History (Updated 07/02/23 @ 02:56 by Joanna Sarmiento NP) Social History: The patient's same-sex partner has passed
[2023-07-06] MEDS: ACETAMINOPHEN 325 MG TABLET 650 MG PO ×2 (14:35→20:53)
[2023-07-06 15:35] VITALS: BP 146/49; PULSE 88; RESP 18; TEMP 36.3; O2SAT 95
--- NOTE | 2023-07-06 21:59 | PC.NURSE ---
This RN asked the pt if she would prefer for an RN to turn her manually despite the pt being able to do so independently due to the pt communicating a desire for this to occur to the previous shift. The pt replied by saying she does not want to decide. This RN communicated to the pt that this RN performs pt centered care, and wants the pt to be involved/in charge of her care and the interventions in place. This RN also communicated to the pt to call the nurses station if she is incontinent of urine due to the risks of infection and skin breakdown. Pt stated You mean to tell me I need to call you every time I pee. This RN replied saying yes it is preferred that you call the nurses station because we (nursing staff) want the you to improve, so you (the pt) can go back to assisted living where you were before. Pt is a&ox4 and stated she was independent w/turning, using the restroom, and cleaning herself up previously at said assisted living; pt verbalized understanding to call the nurses station if she is incontinent, but does not want to be awoken to be repositioned by staff. This conversation took place while this RN and Sandra Jackson RN were cleaning the pt and changing the bed linens and depend after pt was incontinent of urine. Pt lacks motivation to improve her mobility and physical capability, and is more dependent for her needs while the pt is verbalizing a desire to be independent enough to return back to the assisted living. Pt said she hoped to be gone and back at the assisted living by Friday to which this RN informed the pt that she still needs evaluated by PT, and will have a meeting w/care coordination. Pt turned well independently while this RN and Sandra Ren RN were changing bed linens, but states she cannot move in the bed due to the sheet not allowing her to slide. Once pt was clean and blankets placed on her w/the bottom of the blankets being tucked in per pt request this RN had assisted the pt w/placing her dentures in a denture cup w/Efferdent and warm water. Pt verbalized appreciation. Call light w/in reach, bed in lowest position, side railsx4 per pt request to make it easier for her to turn, personal items w/in reach, and night light on pt for safety.
[2023-07-06 23:01] VITALS: BP 132/56; PULSE 59; RESP 20; TEMP 36.2; O2SAT 95
--- NOTE | 2023-07-06 23:24 | PC.NURSE ---
Pt called nurses station notifying staff that she was incontinent of urine. This RN and Laura Sands RN cleaned the pt and put a clean depend on the pt. Pt tolerating interventions and turning well. Call light and personal items w/in reach, night light on, side railsx4 per pt request to make it easier for her to turn, and bed in lowest position for pt safety.
[2023-07-07 05:15] LABS: Basophils Absolute Auto 0.05 K/mm3 (0.00-0.10); Basophils Percent Auto 0.7 % (0.0-1.0); Eosinophils Absolute Auto 0.46 K/mm3 (0.02-0.50); Eosinophils Percent Auto 6.5 % (1.0-6.0); Hematocrit 38.2 % (35.0-42.0); Hemoglobin 12.4 g/dL (11.7-13.8); Immature Granulocyte Absolute 0.04 K/mm3 (0.00-0.00); Immature Granulocyte Percent A 0.6 % (0.0-0.0); Mean Corpuscular HGB Conc 32.5 g/dL (32.0-36.0); Mean Corpuscular Hemoglobin 31.3 pg (27.0-31.0); Mean Corpuscular Volume 96.5 fL (78.0-102.0); Mean Platelet Volume 10.6 fl (9.2-11.8); Monocytes Absolute Auto 0.83 K/mm3 (0.10-0.90); Monocytes Percent Auto 11.8 % (2.0-11.0); Neutrophils Absolute Auto 4.5 K/mm3 (1.7-7.2); Neutrophils Percent Auto 63.4 % (50.0-70.0); Platelet Count Result 286 K/mm3 (150-420); Red Blood Count 3.96 M/mm3 (4.20-5.40); Red Cell Distribution Width 12.9 % (11.6-14.4); White Blood Count 7.1 K/mm3 (4.8-10.8)
[2023-07-07 05:40] LABS: Alanine Aminotransferase 26 U/L (14-59); Albumin Level 2.5 g/dL (3.4-5.0); Alkaline Phosphatase 135 U/L (46-116); Anion Gap 5 mmol/L (8-16); Aspartate Amino Transferase 29 U/L (15-37); Bilirubin,Total 0.4 mg/dL (0.00-1.00); Blood Urea Nitrogen 45 mg/dL (7-18); Calcium 8.5 mg/dL (8.5-10.1); Carbon Dioxide 30 mmol/L (21-32); Chloride 102 mmol/L (98-108); Estimated CRCL calculation 35 ml/min; Estimated Glomerular Filt Rate 42; Glucose 103 mg/dL (70-99); Magnesium 1.9 mg/dL (1.8-2.4); Osmolality Calculated 295 mOsm/kg (285-295); Potassium 4.5 mmol/L (3.5-5.1); Sodium 137 mmol/L (136-145); Total Protein 6.5 g/dL (6.4-8.2)
[2023-07-07 08:00] VITALS: BP 142/62; PULSE 60; RESP 16; TEMP 36.6; O2SAT 98
[2023-07-07] MEDS: LIDOCAINE 5% PATCH 1 PATCH TOPICAL (09:10)
[2023-07-07] MEDS: ENOXAPARIN 40 MG/0.4 ML SYRINGE SUB-Q (09:10)
[2023-07-07] MEDS: amLODIPine BESYLATE 5 MG TABLET 10 MG PO (09:10)
[2023-07-07] MEDS: hydroCHLOROthiazide 12.5 MG CAPSULE PO (09:10)
[2023-07-07 09:11] VITALS: PULSE 62
[2023-07-07] MEDS: atenoloL 50 MG TABLET PO (09:11)
[2023-07-07] MEDS: lisinopriL 20 MG TABLET PO (09:11)
[2023-07-07] MEDS: FUROSEMIDE 20 MG TABLET 40 MG PO (09:11)
[2023-07-07] MEDS: PANTOPRAZOLE 40 MG TABLET PO (09:12)
[2023-07-07] MEDS: CLOPIDOGREL BISULFATE 75 MG TABLET PO (09:12)
[2023-07-07] MEDS: POTASSIUM CHLORIDE 20 MEQ ER TABLET PO (09:12)
[2023-07-07] MEDS: HYDROcodone/acetaminophen (*CRX) 5-325 MG TABLET 1 TAB PO ×2 (09:21→20:54)
[2023-07-07] MEDS: ACETAMINOPHEN 325 MG TABLET 650 MG PO ×2 (12:08→19:21)
[2023-07-07 16:00] VITALS: BP 144/44; PULSE 62; RESP 12; TEMP 36.7; O2SAT 95
[2023-07-07 17:13] VITALS: PULSE 86
[2023-07-07] MEDS: atenoloL 50 MG TABLET 100 MG PO (17:13)
--- NOTE | 2023-07-07 19:30 | PC.NURSE ---
Patient has been cooperative and appears to be in good spirits. Patient c/o wrinkly feet - lotion placed on feet, patient was appreciative.
[2023-07-07 23:49] VITALS: BP 119/47; PULSE 58; RESP 18; TEMP 36.2; O2SAT 96
[2023-07-08 08:00] VITALS: BP 143/78; PULSE 61; RESP 18; TEMP 36.2; O2SAT 99
[2023-07-08 08:30] VITALS: O2SAT 99
[2023-07-08 09:48] VITALS: PULSE 61
[2023-07-08] MEDS: hydroCHLOROthiazide 12.5 MG CAPSULE PO (09:48)
[2023-07-08] MEDS: atenoloL 50 MG TABLET PO (09:48)
[2023-07-08] MEDS: amLODIPine BESYLATE 5 MG TABLET 10 MG PO (09:48)
[2023-07-08] MEDS: lisinopriL 20 MG TABLET PO (09:48)
[2023-07-08] MEDS: CLOPIDOGREL BISULFATE 75 MG TABLET PO (09:48)
[2023-07-08] MEDS: LIDOCAINE 5% PATCH 1 PATCH TOPICAL (09:49)
[2023-07-08] MEDS: PANTOPRAZOLE 40 MG TABLET PO (09:49)
[2023-07-08] MEDS: ENOXAPARIN 40 MG/0.4 ML SYRINGE SUB-Q (09:49)
[2023-07-08] MEDS: FUROSEMIDE 20 MG TABLET PO (09:49)
[2023-07-08] MEDS: POTASSIUM CHLORIDE 20 MEQ ER TABLET PO (09:49)
[2023-07-08 16:00] VITALS: BP 132/56; PULSE 56; RESP 18; TEMP 36.6; O2SAT 96
--- NOTE | 2023-07-08 16:46 | PC.NURSE ---
pt refusing to get up for therapy, refuses to get up for dinner, pt reminded of swing bed regulations, states she is in pain and tired and will eat in bed today for dinner
[2023-07-08] MEDS: HYDROcodone/acetaminophen (*CRX) 5-325 MG TABLET 1 TAB PO (17:03)
[2023-07-08 17:04] VITALS: PULSE 56
[2023-07-08] MEDS: atenoloL 50 MG TABLET 100 MG PO (17:04)
[2023-07-08] MEDS: ACETAMINOPHEN 325 MG TABLET 650 MG PO (19:30)
[2023-07-08] MEDS: diazePAM (*CRX) 5 MG TABLET PO (19:31)
[2023-07-09] VITALS: BP 147/48; PULSE 59; RESP 16; TEMP 36.6; O2SAT 96
[2023-07-09 08:00] VITALS: BP 147/58; PULSE 84; RESP 16; TEMP 36.7; O2SAT 98
[2023-07-09] MEDS: FUROSEMIDE 20 MG TABLET PO (08:59)
[2023-07-09] MEDS: POTASSIUM CHLORIDE 20 MEQ ER TABLET PO (08:59)
[2023-07-09] MEDS: PANTOPRAZOLE 40 MG TABLET PO (08:59)
[2023-07-09] MEDS: CLOPIDOGREL BISULFATE 75 MG TABLET PO (09:00)
[2023-07-09] MEDS: HYDROcodone/acetaminophen (*CRX) 5-325 MG TABLET 1 TAB PO ×2 (09:00→20:53)
[2023-07-09] MEDS: lisinopriL 20 MG TABLET PO (09:01)
[2023-07-09] MEDS: amLODIPine BESYLATE 5 MG TABLET 10 MG PO (09:01)
[2023-07-09] MEDS: hydroCHLOROthiazide 12.5 MG CAPSULE PO (09:01)
[2023-07-09 09:02] VITALS: PULSE 79
[2023-07-09] MEDS: atenoloL 50 MG TABLET PO (09:02)
[2023-07-09] MEDS: ACETAMINOPHEN 325 MG TABLET 650 MG PO ×2 (09:03→20:52)
[2023-07-09] MEDS: ENOXAPARIN 40 MG/0.4 ML SYRINGE SUB-Q (09:04)
[2023-07-09] MEDS: LIDOCAINE 5% PATCH 1 PATCH TOPICAL (09:04)
[2023-07-09 16:00] VITALS: BP 132/56; PULSE 56; RESP 16; TEMP 36.6; O2SAT 98
[2023-07-09 18:23] VITALS: PULSE 64
[2023-07-09] MEDS: atenoloL 50 MG TABLET 100 MG PO (18:23)
[2023-07-09 23:29] VITALS: BP 136/46; PULSE 56; RESP 18; TEMP 36.6; O2SAT 97
[2023-07-10 07:40] VITALS: BP 163/64; PULSE 58; RESP 16; TEMP 36.3; O2SAT 98
[2023-07-10 08:30] VITALS: O2SAT 98
[2023-07-10] MEDS: HYDROcodone/acetaminophen (*CRX) 5-325 MG TABLET 1 TAB PO ×2 (09:31→21:21)
[2023-07-10] MEDS: LIDOCAINE 5% PATCH 1 PATCH TOPICAL (09:32)
[2023-07-10] MEDS: diazePAM (*CRX) 5 MG TABLET PO (09:32)
[2023-07-10] MEDS: FUROSEMIDE 20 MG TABLET PO (09:32)
[2023-07-10] MEDS: ENOXAPARIN 40 MG/0.4 ML SYRINGE SUB-Q (09:32)
[2023-07-10] MEDS: POTASSIUM CHLORIDE 20 MEQ ER TABLET PO (09:32)
[2023-07-10 09:33] VITALS: PULSE 77
[2023-07-10] MEDS: hydroCHLOROthiazide 12.5 MG CAPSULE PO (09:33)
[2023-07-10] MEDS: PANTOPRAZOLE 40 MG TABLET PO (09:33)
[2023-07-10] MEDS: atenoloL 50 MG TABLET PO (09:33)
[2023-07-10] MEDS: lisinopriL 20 MG TABLET PO (09:33)
[2023-07-10] MEDS: amLODIPine BESYLATE 5 MG TABLET 10 MG PO (09:33)
[2023-07-10] MEDS: CLOPIDOGREL BISULFATE 75 MG TABLET PO (09:33)
[2023-07-10] MEDS: ACETAMINOPHEN 325 MG TABLET 650 MG PO ×2 (15:11→20:09)
[2023-07-10 16:30] VITALS: BP 158/60; PULSE 72; RESP 16; TEMP 36.2; O2SAT 97
[2023-07-10 19:01] VITALS: PULSE 72
[2023-07-10] MEDS: atenoloL 50 MG TABLET 100 MG PO (19:01)
[2023-07-10 23:13] VITALS: BP 116/49; PULSE 58; RESP 16; TEMP 36.4; O2SAT 98
[2023-07-11 07:34] LABS: Basophils Absolute Auto 0.07 K/mm3 (0.00-0.10); Basophils Percent Auto 1.3 % (0.0-1.0); Eosinophils Absolute Auto 0.23 K/mm3 (0.02-0.50); Eosinophils Percent Auto 4.3 % (1.0-6.0); Hematocrit 36.7 % (35.0-42.0); Hemoglobin 11.7 g/dL (11.7-13.8); Immature Granulocyte Absolute 0.01 K/mm3 (0.00-0.00); Immature Granulocyte Percent A 0.2 % (0.0-0.0); Lymphocytes Absolute Auto 1.08 K/mm3 (1.10-4.50); Lymphocytes Percent Auto 20.3 % (18.0-42.0); Mean Corpuscular HGB Conc 31.9 g/dL (32.0-36.0); Mean Corpuscular Volume 97.1 fL (78.0-102.0); Mean Platelet Volume 10.4 fl (9.2-11.8); Monocytes Absolute Auto 0.58 K/mm3 (0.10-0.90); Monocytes Percent Auto 10.9 % (2.0-11.0); Neutrophils Absolute Auto 3.4 K/mm3 (1.7-7.2); Platelet Count Result 277 K/mm3 (150-420); Red Blood Count 3.78 M/mm3 (4.20-5.40); Red Cell Distribution Width 13.2 % (11.6-14.4); White Blood Count 5.3 K/mm3 (4.8-10.8)
[2023-07-11 07:45] LABS: Anion Gap 6 mmol/L (8-16); Blood Urea Nitrogen 47 mg/dL (7-18); Carbon Dioxide 27 mmol/L (21-32); Chloride 105 mmol/L (98-108); Estimated CRCL calculation 32 ml/min; Estimated Glomerular Filt Rate 38; Glucose 92 mg/dL (70-99); Osmolality Calculated 298 mOsm/kg (285-295); Sodium 138 mmol/L (136-145)
[2023-07-11 08:00] VITALS: BP 132/54; PULSE 55; RESP 18; TEMP 36.2; O2SAT 98
[2023-07-11] MEDS: hydroCHLOROthiazide 12.5 MG CAPSULE PO (09:15)
[2023-07-11] MEDS: FUROSEMIDE 20 MG TABLET PO (09:15)
[2023-07-11] MEDS: POTASSIUM CHLORIDE 20 MEQ ER TABLET PO (09:15)
[2023-07-11] MEDS: PANTOPRAZOLE 40 MG TABLET PO (09:15)
[2023-07-11 09:16] VITALS: PULSE 55
[2023-07-11] MEDS: amLODIPine BESYLATE 5 MG TABLET 10 MG PO (09:16)
[2023-07-11] MEDS: atenoloL 50 MG TABLET PO (09:16)
[2023-07-11] MEDS: CLOPIDOGREL BISULFATE 75 MG TABLET PO (09:16)
[2023-07-11] MEDS: lisinopriL 20 MG TABLET PO (09:16)
[2023-07-11] MEDS: HYDROcodone/acetaminophen (*CRX) 5-325 MG TABLET 1 TAB PO (09:21)
--- NOTE | 2023-07-11 10:14 | PM.DS ---
DS: Admitting Diagnosis Discharge Date July 11 Admitting Diagnosis back pain, weakness DS: Discharge Diagnosis Discharge Diagnosis (1) Back pain: Code(s): M54.9 - Dorsalgia, unspecified Status: Acute (2) HTN (hypertension): Qualifiers: Hypertension type: unspecified Qualified Code(s): I10 - Essential (primary) hypertension Code(s): I10 - Essential (primary) hypertension Status: Acute (3) CKD (chronic kidney disease) stage 3, GFR 30-59 ml/min: Qualifiers: Chronic kidney disease stage 3 subtype: stage 3a (GFR 45-59) Qualified Code(s): N18.31 - Chronic kidney disease, stage 3a Code(s): N18.3 - Chronic kidney disease, stage 3 (moderate) Status: Acute (4) Edema: Code(s): R60.9 - Edema, unspecified Status: Acute Plan A/P 1. Back pain secondary to compression fractures-patient's back pain is chronic and patient is on pain medication that has been controlling her pain well at this time. Will have PT/OT to evaluate and treat patient do appreciate further recommendations. Will continue to encourage patient to participate in therapy. 2. Hypertension-Will resume patient's home medications once verified home medication list and adjust medications accordingly for optimal blood pressure control. 3. Chronic kidney disease-will have baseline laboratories drawn in the a.m. and continue to monitor patient's renal function on a routine basis. Patient's baseline kidney function shows a creatinine of 1. 4. Edema-patient has chronic lymphedema and is at baseline. Patient is taking Lasix 40 mg daily and will continue with this medication. Will have baseline laboratories drawn in the a.m. to evaluate patient's electrolytes. VTE: Patient will be placed on subcutaneous Lovenox daily for from pharmacological VTE prophylaxis Dispo: Patient requires inpatient monitoring with expected length of stay to exceed 2 midnights for management of care. Code Status: Full code DS: Summary Hospital Course Hospital Course: Chief Complaint: Weakness Narrative: Ms. Monzon is an 83-year-old female who presents to the hospital at this time for rehab.? Patient was at outside facility for low back pain and lower extremity edema.? Upon evaluation at outside facility patient was noted to have chronic burst fractures of L1, L3 through L5 with retropulsion contributing to mild to moderate central canal stenosis at the level of L1 and mild central canal stenosis at a few additional lumbar levels.? Patient was also noted to have moderate to severe multilevel lumbar facet osteoarthritis contributing to mild and moderate neural foraminal stenosis at multiple levels on both right and left sides.? Patient was also noted to have mild pulmonary edema and she was given Lasix.? Patient was to undergo MRI, but she did not feel she could tolerate it so this was unable to be performed.? Patient was diuresed during hospitalization and did have an echo Doppler performed.? Patient was noted to have mild concentric left ventricular wall thickness with grade 1 diastolic dysfunction.? Patient's ejection fraction was noted to be 65-70%.? Patient also has a known history of chronic lymphedema to bilateral lower extremities.? At outside facility patient had been seen by Neurosurgery and no surgical intervention was needed, and patient stated that she wanted to be bandage with pain medication.? Patient had also stated that she did not want any physical therapy, but after hospitalist spoke with patient was decided that patient did want to participate physical therapy.? Patient was then transferred to this facility for swing bed status and rehab. Patient states that she does have mild pain today, but her pain has significantly improved.? Patient denies any chest pain, shortness of breath, orthopnea, or PND.? Patient denies any dysuria, hematuria, frequency, or urgency.? Patient states this is the best she has felt in so
[2023-07-11] MEDS: ACETAMINOPHEN 325 MG TABLET 650 MG PO (14:09)
== END 2023-07-11 15:10 | disposition home health service (06) | DRG 561 ==
PROVIDERS: Nurse Practitioner Acute Care; Nurse Practitioner Adult Health; Admitting Provider Internal Medicine; PCP Family Medicine; Visit Provider Internal Medicine
DX: S32.011D Stable burst fracture of first lumbar vertebra, subsequent encounter for fracture with routine healing (principal); S32.031D Stable burst fracture of third lumbar vertebra, subsequent encounter for fracture with routine healing; S32.041D Stable burst fracture of fourth lumbar vertebra, subsequent encounter for fracture with routine healing; S32.051D Stable burst fracture of fifth lumbar vertebra, subsequent encounter for fracture with routine healing; I25.10 Atherosclerotic heart disease of native coronary artery without angina pectoris; I89.0 Lymphedema, not elsewhere classified; I12.9 Hypertensive chronic kidney disease with stage 1 through stage 4 chronic kidney disease, or unspecified chronic kidney disease; N18.30 Chronic kidney disease, stage 3 unspecified; E78.5 Hyperlipidemia, unspecified; E55.9 Vitamin D deficiency, unspecified; K21.9 Gastro-esophageal reflux disease without esophagitis; M48.061 Spinal stenosis, lumbar region without neurogenic claudication; M47.816 Spondylosis without myelopathy or radiculopathy, lumbar region; M85.80 Other specified disorders of bone density and structure, unspecified site; F41.9 Anxiety disorder, unspecified; Z96.612 Presence of left artificial shoulder joint; I25.2 Old myocardial infarction; Z95.5 Presence of coronary angioplasty implant and graft; Z87.891 Personal history of nicotine dependence
CPT/HCPCS: 36415; 80048; 80053; 83735; 85025; 97110; 97161; 97165; 97530; 97535; A9270; J1650

== ENCOUNTER 2023-09-04 11:12 | Outpatient (CLI) | payer MEDICARE, MEDICAID, SELFPAY ==
[2023-09-04 12:06] LABS: Basophils Absolute Auto 0.1 K/mm3 (0.0-0.1); Basophils Percent Auto 1.2 % (0.2-1.2); Eosinophils Absolute Auto 0.7 K/mm3 (0-0.3); Eosinophils Percent Auto 11.1 % (0-4.4); Hematocrit 35.1 % (37.0-47.0); Immature Granulocyte Absolute 0.04 K/mm3 (0.00-0.031); Immature Granulocyte Percent A 0.6 % (0-0.5); Lymphocytes Absolute Auto 1.25 K/mm3 (0.9-3.2); Lymphocytes Percent Auto 19.5 % (18.3-44.2); Mean Corpuscular HGB Conc 31.3 g/dl (32-36); Mean Corpuscular Hemoglobin 30.6 pg (26-34); Mean Corpuscular Volume 97.8 fl (80-100); Mean Platelet Volume 10.9 fl (7.4-10.4); Monocytes Absolute Auto 0.7 K/mm3 (0.1-0.6); Monocytes Percent Auto 10.6 % (2.6-8.5); Neutrophils Absolute Auto 3.7 K/mm3 (1.3-6.7); Platelet Count Result 276 k/mm3 (150-375); Red Blood Count 3.59 M/mm3 (4.2-5.4); Red Cell Distribution Width 14.2 % (11.5-14.5); White Blood Count 6.4 K/mm3 (4.5-10.0)
[2023-09-04 12:16] LABS: Alanine Aminotransferase 13 U/L (6-35); Albumin Level 4.2 g/dL (3.5-5.1); Alkaline Phosphatase 89 U/L (38-126); Anion Gap 7 mmol/L (8-16); Aspartate Amino Transferase 23 U/L (14-36); Blood Urea Nitrogen 30 mg/dL (7-17); Calcium 9.2 mg/dL (8.4-10.2); Carbon Dioxide 29 mmol/L (22-30); Chloride 102 mmol/L (98-107); Cholesterol 196 mg/dL (0-200); Estimated Glomerular Filt Rate 43; Glucose 87 mg/dL (65-110); HDL Direct 40 mg/dL; Potassium 4.7 mmol/L (3.4-5.0); Sodium 138 mmol/L (137-145); Triglycerides 210 mg/dL (<150)
[2023-09-04 12:28] LABS: LDL Cholesterol Direct 101 mg/dL
[2023-09-08 23:35] LABS: Vitamin D 1,25 (OH)2 Total 33 pg/mL (18-72); Vitamin D2 1,25 (OH)2 <8 pg/mL; Vitamin D3 1,25 (OH)2 33 pg/mL
== END 2023-09-04 11:13 | disposition home or self-care (01) ==
PROVIDERS: PCP Family Medicine; Visit Provider Nurse Practitioner Family
DX: E55.9 Vitamin D deficiency, unspecified (principal); I10 Essential (primary) hypertension
CPT/HCPCS: 36415; 80053; 80061; 82652; 85025

== ENCOUNTER 2024-03-05 10:44 | Outpatient (CLI) | payer MEDICARE, MEDICAID, SELFPAY ==
--- NOTE | ~2024-03-05 | XR_ITS ---
XR shoulder RT min 2V 03/05/2024 11:21 Indication: Right shoulder pain Procedure: 4 views right shoulder Comparison: No prior studies for comparison. Findings: There is severe polyarticular osteoarthritis of the right shoulder. Osteopenia. No fracture or traumatic malalignment. No soft tissue abnormality. 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 Reviewed, dictated and finalized at location B. 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
== END 2024-03-05 10:45 | disposition home or self-care (01) ==
PROVIDERS: PCP Family Medicine; Visit Provider Family Medicine
DX: M19.011 Primary osteoarthritis, right shoulder (principal)
CPT/HCPCS: 73030

== ENCOUNTER 2024-07-21 09:46 | Outpatient (CLI) | payer MEDICARE, SELFPAY ==
[2024-07-21 11:12] LABS: Basophils Absolute Auto 0.1 K/mm3 (0.0-0.1); Basophils Percent Auto 0.8 % (0.2-1.2); Eosinophils Absolute Auto 0.4 K/mm3 (0-0.3); Eosinophils Percent Auto 6.2 % (0-4.4); Hemoglobin 11.2 g/dL (12.0-15.0); Immature Granulocyte Absolute 0.04 K/mm3 (0.00-0.031); Immature Granulocyte Percent A 0.6 % (0-0.5); Lymphocytes Absolute Auto 1.33 K/mm3 (0.9-3.2); Lymphocytes Percent Auto 18.8 % (18.3-44.2); Mean Corpuscular HGB Conc 33.9 g/dl (32-36); Mean Corpuscular Hemoglobin 33.7 pg (26-34); Mean Corpuscular Volume 99.4 fl (80-100); Mean Platelet Volume 11.8 fl (7.4-10.4); Monocytes Absolute Auto 0.8 K/mm3 (0.1-0.6); Monocytes Percent Auto 11.1 % (2.6-8.5); Neutrophils Absolute Auto 4.4 K/mm3 (1.3-6.7); Neutrophils Percent Auto 62.5 % (45.5-73.1); Platelet Count Result 219 k/mm3 (150-375); Red Blood Count 3.32 M/mm3 (4.2-5.4); Red Cell Distribution Width 13.7 % (11.5-14.5); White Blood Count 7.1 K/mm3 (4.5-10.0)
[2024-07-21 11:26] LABS: Alanine Aminotransferase 14 U/L (6-35); Albumin Level 3.8 g/dL (3.5-5.1); Alkaline Phosphatase 73 U/L (38-126); Anion Gap 10 mmol/L (4-12); Aspartate Amino Transferase 21 U/L (14-36); Bilirubin,Total 0.8 mg/dL (0.2-1.3); Blood Urea Nitrogen 57 mg/dL (7-17); Calcium 8.8 mg/dL (8.4-10.2); Carbon Dioxide 24 mmol/L (22-30); Chloride 106 mmol/L (98-107); Cholesterol 170 mg/dL (0-200); Estimated Glomerular Filt Rate 33; Glucose 92 mg/dL (65-110); HDL Direct 39 mg/dL; Potassium 3.7 mmol/L (3.4-5.0); Sodium 140 mmol/L (137-145); Triglycerides 178 mg/dL (<150)
[2024-07-21 11:37] LABS: LDL Cholesterol Direct 86 mg/dL
== END 2024-07-21 09:47 | disposition home or self-care (01) ==
PROVIDERS: PCP Family Medicine; Visit Provider Nurse Practitioner Family
DX: I10 Essential (primary) hypertension (principal); E78.5 Hyperlipidemia, unspecified
CPT/HCPCS: 36415; 80053; 80061; 85025

== ENCOUNTER 2025-09-02 19:40 | Inpatient (IN) | payer MEDICARE, SELFPAY ==
[2025-09-02] VITALS (7 sets, daily range): BP systolic 171–175; BP diastolic 63–69; PULSE 78–86; RESP 18–25; TEMP 37.6; O2SAT 86–97
--- NOTE | ~2025-09-02 | CT_ITS ---
EXAMINATION: CTA chest PE protocol DATE: 09/02/2025 23:24 INDICATION: Shortness of breath. TECHNIQUE: Computed tomography angiography (CTA) of the chest was performed with 100 mL Omnipaque-350 intravenous contrast timed to evaluate the pulmonary arteries. Coronal maximum intensity projection 3D-reconstructions were created by the technologist. Automated exposure control and iterative reconstruction technique were employed. The dose-length product was 959.39 mGy-cm. COMPARISON: Lumbar spine CT 07/01/2023 FINDINGS: There is mild emphysema. There is diffuse smooth septal thickening in the lungs. There are groundglass opacities in all lobes with a perihilar bronchovascular predominance. There are small pleural effusions. Cardiomegaly is noted. There are coronary artery calcifications. No pericardial effusion. There is no pulmonary embolus. Calcifications in the liver and spleen are consistent with old granulomatous disease. There is cortical thinning of the kidneys. There is a 7 mm cyst in left kidney. There are changes of cholecystectomy. There is a total left shoulder arthroplasty. There is mild thoracic spondylosis. There are chronic burst fractures of T12, L1, and L2. IMPRESSION: 1. No pulmonary embolus. Sensitivity is moderately decreased by motion artifact. 2. Diffuse lung disease, consistent with pulmonary edema and/or pneumonia. 3. Small pleural effusions. Reviewed, dictated and finalized at location E. IMPRESSION: 1. No pulmonary embolus. Sensitivity is moderately decreased by motion artifact . 2. Diffuse lung disease, consistent with pulmonary edema and/or pneumonia. 3. Small pleural effusions.
--- NOTE | ~2025-09-02 | US_ITS ---
PROCEDURE: Ultrasound bilateral renal INDICATION: AMAURY COMPARISON: None. FINDINGS: The renal cortical thickness is within normal limits on both sides. Left kidney: There is no hydronephrosis. There is no renal mass seen. Right kidney: There is no hydronephrosis. There is no renal mass seen. There are bilateral normal ureteral jets. The bladder is suboptimally distended but appears grossly normal. IMPRESSION: Normal renal ultrasound. Reviewed, dictated and finalized at location A. IMPRESSION: Normal renal ultrasound.
--- NOTE | ~2025-09-02 | XR_ITS ---
EXAMINATION: XR humerus LT, 09/09/2025 12:00 CDT HISTORY: pain/unable to move COMPARISON: No comparisons available. Findings: No acute fracture or malalignment. Arthroplasty intact Soft tissues unremarkable. Impression: No acute fracture or malalignment. Reviewed, dictated and finalized at location P. Impression: No acute fracture or malalignment.
--- NOTE | ~2025-09-02 | XR_ITS ---
EXAMINATION: XR wrist LT 2V, 09/09/2025 12:00 CDT HISTORY: pain and unable to move COMPARISON: No comparisons available. Findings: No acute fracture or malalignment. Severe degenerative changes of the first metacarpal carpal joint, moderate degenerative changes of the carpal joints Soft tissues unremarkable. Impression: No acute fracture or malalignment. Reviewed, dictated and finalized at location P. Impression: No acute fracture or malalignment.
--- NOTE | ~2025-09-02 | XR_ITS ---
EXAMINATION: XR elbow LT 2V, 09/09/2025 12:00 CDT HISTORY: pain/unable to move COMPARISON: No comparisons available. Findings: No acute fracture or malalignment. No significant degenerative changes. Soft tissues unremarkable. Impression: No acute fracture or malalignment. Reviewed, dictated and finalized at location P. Impression: No acute fracture or malalignment.
--- NOTE | ~2025-09-02 | XR_ITS ---
XR chest 2V HOSTORY: SOB COMPARISON:[ None] FINDINGS: Frontal and lateral views of the chest were obtained. Patchy bilateral lower lobe opacities are noted. The heart size is normal in size. Osseous structures are intact. IMPRESSION: Patchy bilateral lower lobe opacities may represent pulmonary edema. [ ] Reviewed, dictated and finalized at location S.
--- NOTE | ~2025-09-02 | XR_ITS ---
Examination: XR chest 1V portable Clinical History: Increased wheezing Comparison: X-rays 09/02/2025 Technique: Portable AP Findings: Mild cardiomegaly. Lungs clear. No acute bony abnormality. IMPRESSION: 1. No acute cardiopulmonary findings given portable technique. Reviewed, dictated and finalized at location R.
--- NOTE | 2025-09-02 19:50 | ECG_ITS ---
Test Date: 2025-09-02 19:56:15 Measurements Intervals [place] Rate: 79 P: 30 DE: 160 QRS: 29 QRSD: 94 T: 21 QT: 372 QTc: 428 Interpretive Statements SINUS RHYTHM CONSIDER INFERIOR INFARCT, AGE INDETERMINATE BORDERLINE ST ABNORMALITY- ANTEROLAT/HIGH LAT LEADS BASELINE ARTIFACT- I, AVR, AVF, V1, V3-V6 ABNORMAL ECG No previous ECG available for comparison Electronically Signed On 09-02-2025 21:03:18 CDT by Rivera Ortega D.O.
[2025-09-02 20:10] LABS: Hematocrit 34.1 % (37.0-47.0); Hemoglobin 11.1 g/dL (12.0-15.0); Immature Granulocyte Percent A 0.8 % (0-0.5); Lymphocytes Absolute Auto 0.74 K/mm3 (0.9-3.2); Mean Corpuscular HGB Conc 32.6 g/dl (32-36); Mean Corpuscular Hemoglobin 31.4 pg (26-34); Mean Corpuscular Volume 96.3 fl (80-100); Nucleated Red Blood Cells Absolute Auto 0.000 K/mm3 (0.0-0.012); Nucleated Red Blood Cells Perc 0.0 % (0.0-0.2); Platelet Count Result 216 k/mm3 (150-375); Red Blood Count 3.54 M/mm3 (4.2-5.4); White Blood Count 12.1 K/mm3 (4.5-10.0)
[2025-09-02 20:21] LABS: Alanine Aminotransferase 18 U/L (6-35); Albumin Level 3.9 g/dL (3.5-5.1); Alkaline Phosphatase 97 U/L (38-126); Anion Gap 7 mmol/L (4-12); Aspartate Amino Transferase 28 U/L (14-36); Bilirubin,Total 1.8 mg/dL (0.2-1.3); Blood Urea Nitrogen 33 mg/dL (7-17); Calcium 8.6 mg/dL (8.4-10.2); Carbon Dioxide 25 mmol/L (22-30); Chloride 103 mmol/L (98-107); Estimated CRCL calculation 33 ml/min; Estimated Glomerular Filt Rate 41; Glucose 141 mg/dL (65-110); Potassium 3.8 mmol/L (3.4-5.0); Sodium 135 mmol/L (137-145); Total Protein 7.7 g/dL (6.3-8.2)
[2025-09-02 23:00] LABS: INR 1.2; Prothrombin Time 15.1 Seconds (11.1-14.7)
[2025-09-02 23:01] LABS: Partial Thromboplastin Time 38.5 Seconds (22.3-36.8)
--- NOTE | 2025-09-02 23:15 | ED.SOB ---
HPI - SOB/Dyspnea General Chief Complaint: Shortness of Breath/Dyspnea <Jory Ugarte PA-C - Last Filed: 09/03/25 02:37> Stated Complaint: uri, flu, sob <Jory Ugarte PA-C - Last Filed: 09/03/25 02:37> Time Seen by Provider: 09/02/25 21:50 <KASSIE Khan Last Filed: 09/03/25 02:37> Source: patient <KASSIE Khan Last Filed: 09/03/25 02:37> Mode of arrival: ambulatory <KASSIE Khan Last Filed: 09/03/25 02:37> Limitations: no limitations <KASSIE Khan Last Filed: 09/03/25 02:37> History of Present Illness HPI Narrative: Patient is an 85-year-old female, with past medical history of CAD, hypertension, who presents the ED via EMS with report of shortness of breath. Patient is a resident of [facility]. Reports she has not felt well over the past few days. Reports having diffuse myalgias, cough, congestion, subjective fevers. [place] as though she had the flu. Began feeling increasingly short of breath today. Sent here for further evaluation. Denies chest pain. Reports chronic swelling of lower extremities. Is on furosemide 40 mg daily, but denies history of CHF. <KASSIE Khan Last Filed: 09/03/25 02:37> Related Data Home Medications: Home Medications ?Medication ?Instructions ?Recorded ?Confirmed ?Last Taken ?Type pantoprazole 40 mg tablet,delayed 40 mg PO QAM 09/16/19 09/03/25 07/05/23 08:35 History release (Protonix) amlodipine 10 mg tablet 10 mg PO DAILY 05/28/21 09/03/25 07/05/23 08:35 History atenolol 100 mg tablet 50 mg PO QAM 07/05/23 09/03/25 Unknown History atenolol 100 mg tablet 100 mg PO QPM 07/05/23 09/03/25 07/04/23 20:45 History hydrocodone 7.5 mg-acetaminophen 1 tablet PO Q12H 09/03/25 09/03/25 Unknown History 325 mg tablet lidocaine 5 % topical patch 1 patch topical DAILY PRN pain 09/03/25 09/03/25 Unknown History loperamide 2 mg capsule (Imodium 2 mg PO .COMPLEX PRN loose stool 09/03/25 09/03/25 Unknown History A-D) potassium chloride 10 mEq 20 meq PO DAILY 09/03/25 09/03/25 Unknown History tablet,extended release (Klor-Con) psyllium husk 3.4 gram oral powder 3.4 g PO DAILY 09/03/25 09/03/25 Unknown History packet (Metamucil Fiber (aspartame)) <Jory Ugarte PA-C - Last Filed: 09/03/25 02:37> Allergies/Adverse Reactions: Allergies Allergy/AdvReac Type Severity Reaction Status Date / Time Cephalosporins Allergy Severe DIFF Verified 09/03/25 02:58 BREATHING, THROAT SWELLING atorvastatin Allergy Unknown Muscle Pain Verified 09/03/25 02:58 azithromycin Allergy Unknown Anaphylaxis Verified 09/03/25 02:58 cephalexin Allergy Unknown Difficulty Verified 09/03/25 02:58 Breathing erythromycin base Allergy Unknown Anaphylaxis Verified 09/03/25 02:58 levofloxacin Allergy Unknown Rash Verified 09/03/25 02:58 Penicillins Allergy Unknown Anaphylaxis Verified 09/03/25 02:58 spironolactone Allergy Unknown Unknown Verified 09/03/25 02:58 Mwxhrej-WBI-QrI Reductase Allergy Unknown muscle Verified 09/03/25 02:58 Inhibitor (Burourw-Mdj-Myg weakness Reductase Inhibitor) Sulfa (Sulfonamide Allergy Unknown Anaphylaxis Verified 09/03/25 02:58 Antibiotics) <Jory Ugarte PA-C - Last Filed: 09/03/25 02:37> Review of Systems Review of Systems: All systems reviewed & are unremarkable except as noted in HPI. <Jory Ugarte PA-C - Last Filed: 09/03/25 02:37> All systems reviewed & are unremarkable except as noted in HPI and below <KASSIE Khan Last Filed: 09/03/25 02:37> PMFSH Past Medical History Medical History: Medical History COVID Chronic right shoulder pain Back pain Localized edema Osteopenia Statin intolerance Vitamin D deficiency Shingles Compression fracture of lumbar spine, non-traumatic Bilateral knee pain Myocardial infarction GERD without esophagitis Anxiety Compression fracture Paranoia (psychosis) Hyperlipidemia Acute renal failure (~06/2020) Rhabdomyolysis (~06/2020) Chronic back pain Adult failure to thrive General weakness Fracture lt shoulder Arthritis rt shoulder, back Chronic lower back pain HTN (hypertension) <Jory Ugarte PA-C - Last Filed: 09/03/25 02:37> Surgical History Surgical History: Surgical History Hx of shoulder surgery (~2013) lt shoulder replacement H/O right knee surgery (~1988) ORIF H/O: hysterectomy (~1978) Hx of cholecystectomy (~1992) Hx of appendectomy (~1978) Hx of heart artery stent (~2010) x3 Hx of cataract surgery (~1992) bilateral <Jory Ugarte PA-C - Last Filed: 09/03/25 02:37> Family History Family History: Family History Mother Cerebrovascular accident, Onset Age: 77 Patient's mother is Family history of coronary artery disease Family history of osteoarthritis Family history of congestive heart failure Father Family history of lung cancer Patient's father is Family history of malignant neoplasm Grandparent Cerebrovascular accident Family history of heart disease in male family member before age 55 <Jory Ugarte PA-C - Last Filed: 09/03/25 02:37> Social History Social History: Social History Social History: The patient's same-sex partner has (2018), she moved to [facility] apartment 2019. She has no children. She has has a power of deputy attorney general (Mo Pelletier) who is an deputy attorney general and a family friend. She wishes to be a do not resuscitate. She said she used to smoke 50 years ago. No alcohol or illicit drugs. Code status DNR Smoking packs per day: 1 Smoking cigarettes per day: 20.0 Years smoked: 35 Smoking pack-years: 35.00 Smoking status: Former smoker Tobacco type: cigarettes Second hand tobacco smoke exposure: No Smoking end date: 07/11/71 Alcohol intake: never Substance use: never Substance use type: does not use Do You Feel Safe in your Home?: No Lack of Transportation: No Lack of Food: Never True Current Housing: I Have Housing Concerned About Future Housing: No Difficulty Paying Gas/Electric Bills: No Difficulty Paying for Meds: No Currently Unemployed: No Education: High School Diploma/GED Difficulty w/ Childcare or Family Care: No Living arrangements: assisted living Occupation/Education: retired Gender identity (if verbalized by the patient): Female Spiritual care concerns: No Agree to blood products: Yes <Jory Ugarte PA-C - Last Filed: 09/03/25 02:37> Exam Narrative: GENERAL: Elderly, obese with BMI of 33.6, non-toxic, in no acute distress. HEAD: Normocephalic, atraumatic. RESPIRATORY: Airway patent, respirations mildly tachypneic but not significantly labored. Diffuse rhonchi in bases bilaterally. CARDIOVASCULAR: Regular rate and rhythm without murmurs, rubs, or gallops. MUSCULOSKELETAL: Moves all extremities. No gross deformities. Diffuse pitting edema throughout bilateral lower extremities, symmetric, with chronic venous stasis changes. SKIN: Warm, dry, normal color. NEURO: A&O X3. Speech clear. Cranial nerves II-XII grossly intact. No ataxic movements. PSYCHIATRIC: Appropriate mood and affect. Normal interaction. <Jory Ugarte PA-C - Last Filed: 09/03/25 02:37> Course CERT PHARMACY TECH/PA Physician Supervision This visit was performed by both a physician and an APC. I performed all aspects of the MDM as documented. <Grant Herrera MD - Last Filed: 09/03/25 04:35> Vital Signs Vital signs: Vital Signs Temperature 99.6 F 09/02/25 19:41 Pulse Rate 86 09/02/25 19:41 Respiratory Rate 25 H 09/02/25 19:41 Blood Pressure 171/63 H 09/02/25 19:41 Pulse Oximetry 88 L 09/02/25 19:41 Oxygen Delivery Room Air 09/02/25 19:41 Temperature 99.4 F 09/03/25 03:49 Pulse Rate 81 09/03/25 03:49 Respiratory Rate 20 09/03/25 03:49 Blood Pressure 154/49 H 09/03/25 03:49 Pulse Oximetry 96 09/03/25 04:00 Oxygen Delivery Nasal Cannula 09/03/25 04:00 Oxygen Flow Rate 2 09/03/25 04:00 <Jory Ugarte PA-C - Last Filed: 09/03/25 02:37> Vital Signs Temperature 99.6 F 09/02/25 19:41 Pulse Rate 86 09/02/25 19:41 Respiratory Rate 25 H 09/02/25 19:41 Blood Pressure 171/63 H 09/02/25 19:41 Pulse Oximetry 88 L 09/02/25 19:41 Oxygen Delivery Room Air 09/02/25 19:41 Temperature 99.4 F 09/03/25 03:49 Pulse Rate 81 09/03/25 03:49 Respiratory Rate 20 09/03/25 03:49 Blood Pressure 154/49 H 09/03/25 03:49 Pulse Oximetry 96 09/03/25 04:00 Oxygen Delivery Nasal Cannula 09/03/25 04:00 Oxygen Flow Rate 2 09/03/25 04:00 <Grant Herrera MD - Last Filed: 09/03/25 04:35> MDM - SOB/Dyspnea MDM Narrative Medical decision making narrative: Patient presented to ED with shortness of breath, URI symptoms over the past few days. Patient mildly tachypneic upon arrival, borderline febrile. Oxygen was noted to be hypoxic on room air down to 88%. She was placed on 2 L nasal cannula with improvement of oxygen saturations. She denies previous oxygen requirement. Laboratory studies notable for white blood cell count of 12.1. Chronic mild anemia, consistent with previous records. CMP is fairly unremarkable. Kidney function consistent with baseline. Viral swabs are negative. Chest x-ray with bilateral lower lobe opacities, possibly representing pulmonary edema. BNP is markedly elevated to 10,200. Patient denies previous history of CHF, but is on Lasix. Echocardiogram in records from 2022 shows normal LV EF but grade 1 diastolic dysfunction. EKG shows sinus rhythm, no significant concerning ST changes. Patient is denying chest pain. Baseline troponin is elevated to 0.120. Will continue to trend. D-dimer resulted elevated at 2.78. CTA of chest was obtained, no evidence of PE, does show infiltrates, combination of edema/infection/aspiration. Small to moderate bilateral pleural effusions. Patient given dose of IV Lasix in the ED. Blood cultures obtained. Lactic acid WNL at 1.0. Patient will be admitted for further evaluation, continued IV antibiotics/diuresis. Discussed case with Dr. Hamilton, hospitalist, accepted patient for admission. Recommended to start Aztreonam for abx coverage. Will place consult to Infectious Disease given multiple antibiotic allergies. <Jory Ugarte PA-C - Last Filed: 09/03/25 02:37> Patient presented to ED with shortness of breath, URI symptoms over the past few days. Patient mildly tachypneic upon arrival, borderline febrile. Oxygen was noted to be hypoxic on room air down to 88%. She was placed on 2 L nasal cannula with improvement of oxygen saturations. She denies previous oxygen requirement. Laboratory studies notable for white blood cell count of 12.1. Chronic mild anemia, consistent with previous records. CMP is fairly unremarkable. Kidney function consistent with baseline. Viral swabs are negative. Chest x-ray with bilateral lower lobe opacities, possibly representing pulmonary edema. BNP is markedly elevated to 10,200. Patient denies previous history of CHF, but is on Lasix. Echocardiogram in records from 2022 shows normal LV EF but grade 1 diastolic dysfunction. EKG shows sinus rhythm, no significant concerning ST changes. Patient is denying chest pain. Baseline troponin is elevated to 0.120. Will continue to trend. D-dimer resulted elevated at 2.78. CTA of chest was obtained, no evidence of PE, does show infiltrates, combination of edema/infection/aspiration. Small to moderate bilateral pleural effusions. Patient given dose of IV Lasix in the ED. Blood cultures obtained. Lactic acid WNL at 1.0. Patient will be admitted for further evaluation, continued IV antibiotics/diuresis. Discussed case with Dr. Hamilton, hospitalist, accepted patient for admission. Recommended to start Aztreonam for abx coverage. Will place consult to Infectious Disease given multiple antibiotic allergies. This visit was performed by both a physician and an APC. I performed all aspects of the MDM as documented. <Grant Herrera MD - Last Filed: 09/03/25 04:35> Differential Diagnosis Differential diagnosis: Likely acute exacerbation of chronic obstructive airways disease, congestive heart failure, community acquired pneumonia, asthma with exacerbation and pulmonary embolism <Grant Herrera MD - Last Filed: 09/03/25 04:35> Medical Records Attestation: I reviewed the patient's medical records. <Jory Ugarte PA-C - Last Filed: 09/03/25 02:37> Lab Data Attestation: I reviewed the patient's lab results. <Jory Ugarte PA-C - Last Filed: 09/03/25 02:37> Result diagrams: 09/02/25 20:02 09/02/25 20:02 <Jory Ugarte PA-C - Last Filed: 09/03/25 02:37> Labs: Lab Results 09/02/25 09/02/25 Range/Units 20:02 22:42 WBC 12.1 H (4.5-10.0) K/mm3 RBC 3.54 L (4.2-5.4) M/mm3 Hgb 11.1 L (12.0-15.0) g/dL Hct 34.1 L (37.0-47.0) % MCV 96.3 (80-100) fl MCH 31.4 (26-34) pg MCHC 32.6 (32-36) g/dl RDW 12.9 (11.5-14.5) % Plt Count 216 (150-375) k/mm3 MPV 10.6 H (7.4-10.4) fl Immature Gran % (Auto) 0.8 H (0-0.5) % Neut % (Auto) 85.1 H (45.5-73.1) % Lymph % (Auto) 6.1 L (18.3-44.2) % [place] % (Auto) 7.0 (2.6-8.5) % Eos % (Auto) 0.5 (0-4.4) % Baso % (Auto) 0.5 (0.2-1.2) % Lymph # (Auto) 0.74 L (0.9-3.2) K/mm3 [place] # (Auto) 0.8 H (0.1-0.6) K/mm3 Eos # (Auto) 0.1 (0-0.3) K/mm3 Baso # (Auto) 0.1 (0.0-0.1) K/mm3 Abs Immat Gran (auto) 0.10 H (0.00-0.031) K/mm3 Absolute Neuts (auto) 10.3 H (1.3-6.7) K/mm3 Absolute Nucleated RBC 0.000 (0.0-0.012) K/mm3 Nucleated RBC % 0.0 (0.0-0.2) % PT 15.1 H (11.1-14.7) Seconds INR 1.2 APTT 38.5 H (22.3-36.8) Seconds D-Dimer 2.78 H (<0.48) ug/mL Sodium 135 L (137-145) mmol/L Potassium 3.8 (3.4-5.0) mmol/L Chloride 103 (98-107) mmol/L Carbon Dioxide 25 (22-30) mmol/L Anion Gap 7 (4-12) mmol/L BUN 33 H D (7-17) mg/dL Creatinine 1.25 H (0.7-1.0) mg/dL Estim Creat Clear Calc 33 ml/min Estimated GFR 41 L (59 - ) Glucose 141 H (65-110) mg/dL Calcium 8.6 (8.4-10.2) mg/dL Total Bilirubin 1.8 H (0.2-1.3) mg/dL AST 28 (14-36) U/L ALT 18 (6-35) U/L Alkaline Phosphatase 97 (38-126) U/L Troponin I 0.120 H* (0.000-0.034) ng/mL NT-Pro-B Natriuret Pep 18881 H (19.9-100) pg/mL Total Protein 7.7 (6.3-8.2) g/dL Albumin 3.9 (3.5-5.1) g/dL Influenza A (RT-PCR) Negative (Negative) Influenza B (RT-PCR) Negative (Negative) RSV (RT-PCR) Negative (Negative) SARS-CoV-2 RNA (RT-PCR) Negative (Negative) <Jory Ugarte PA-C - Last Filed: 09/03/25 02:37> Lab Results 09/02/25 09/02/25 Range/Units 20:02 22:42 WBC 12.1 H (4.5-10.0) K/mm3 RBC 3.54 L (4.2-5.4) M/mm3 Hgb 11.1 L (12.0-15.0) g/dL Hct 34.1 L (37.0-47.0) % MCV 96.3 (80-100) fl MCH 31.4 (26-34) pg MCHC 32.6 (32-36) g/dl RDW 12.9 (11.5-14.5) % Plt Count 216 (150-375) k/mm3 MPV 10.6 H (7.4-10.4) fl Immature Gran % (Auto) 0.8 H (0-0.5) % Neut % (Auto) 85.1 H (45.5-73.1) % Lymph % (Auto) 6.1 L (18.3-44.2) % [place] % (Auto) 7.0 (2.6-8.5) % Eos % (Auto) 0.5 (0-4.4) % Baso % (Auto) 0.5 (0.2-1.2) % Lymph # (Auto) 0.74 L (0.9-3.2) K/mm3 [place] # (Auto) 0.8 H (0.1-0.6) K/mm3 Eos # (Auto) 0.1 (0-0.3) K/mm3 Baso # (Auto) 0.1 (0.0-0.1) K/mm3 Abs Immat Gran (auto) 0.10 H (0.00-0.031) K/mm3 Absolute Neuts (auto) 10.3 H (1.3-6.7) K/mm3 Absolute Nucleated RBC 0.000 (0.0-0.012) K/mm3 Nucleated RBC % 0.0 (0.0-0.2) % PT 15.1 H (11.1-14.7) Seconds INR 1.2 APTT 38.5 H (22.3-36.8) Seconds D-Dimer 2.78 H (<0.48) ug/mL Sodium 135 L (137-145) mmol/L Potassium 3.8 (3.4-5.0) mmol/L Chloride 103 (98-107) mmol/L Carbon Dioxide 25 (22-30) mmol/L Anion Gap 7 (4-12) mmol/L BUN 33 H D (7-17) mg/dL Creatinine 1.25 H (0.7-1.0) mg/dL Estim Creat Clear Calc 33 ml/min Estimated GFR 41 L (59 - ) Glucose 141 H (65-110) mg/dL Calcium 8.6 (8.4-10.2) mg/dL Total Bilirubin 1.8 H (0.2-1.3) mg/dL AST 28 (14-36) U/L ALT 18 (6-35) U/L Alkaline Phosphatase 97 (38-126) U/L Troponin I 0.120 H* (0.000-0.034) ng/mL NT-Pro-B Natriuret Pep 89057 H (19.9-100) pg/mL Total Protein 7.7 (6.3-8.2) g/dL Albumin 3.9 (3.5-5.1) g/dL Influenza A (RT-PCR) Negative (Negative) Influenza B (RT-PCR) Negative (Negative) RSV (RT-PCR) Negative (Negative) SARS-CoV-2 RNA (RT-PCR) Negative (Negative) <Grant Herrera MD - Last Filed: 09/03/25 04:35> Imaging Data Attestation: I personally reviewed and interpreted this imaging study as follows: <Jory Ugarte PA-C - Last Filed: 09/03/25 02:37> Radiologist's impression: ITS Impressions Chest X-Ray 09/02/25 20:22 IMPRESSION: Patchy bilateral lower lobe opacities may represent pulmonary edema. [ ] STAT RAD CTA Chest: Impression: Respiratory motion limits evaluation. No evidence of acute main/proximal central pulmonary embolism. Mild cardiomegaly. Coronary artery calcifications. Patchy ground-glass/nodular infiltrates. May reflect combination of edema, infection/inflammation the and/or aspiration. Small to moderate bilateral pleural effusions. Severe T12 compression fracture deformity. <KASSIE Khan Last Filed: 09/03/25 02:37> Discharge Plan Discharge Clinical Impression: Acute hypoxic respiratory failure, Elevated troponin, Acute exacerbation of CHF (congestive heart failure), Bilateral pleural effusion, Pneumonia <KASSIE Khan Last Filed: 09/03/25 02:37> Patient Disposition: Still a Patient <KASSIE Khan Last Filed: 09/03/25 02:37> Condition: Stable <KASSIE Khan Last Filed: 09/03/25 02:37>
[2025-09-02 23:25] LABS: Influenza A QL RT-PCR Negative (Negative); Influenza B QL RT-PCR Negative (Negative); NT Pro B Type Natriuretic Pept 10200 pg/mL (19.9-100); RSV RNA, RT-PCR Negative (Negative); SARS-CoV-2 RNA PCR Negative (Negative); Troponin I 0.120 ng/mL (0.000-0.034)
[2025-09-03] VITALS (22 sets, daily range): BP systolic 151–175; BP diastolic 49–82; PULSE 63–81; RESP 13–24; TEMP 36.9–37.9; O2SAT 93–99; BMI 32.3
--- NOTE | 2025-09-03 | ECHO_ITS ---
Patient Info Name: Ofelia Monzon Age: 85 years : 1940 Gender: Female Ht: 67 in Wt: 206 lbs BSA: 2.13 m2 HR: 63 bpm BP: 175 / 50 mmHg Heart Rhythm: Sinus Rhythm Technical Quality: Good Exam Date: 09/03/2025 10:40 AM Patient Status: I Admit Date: 09/03/2025 Exam Type: CA echo doppler color flow Complete two-dimensional, color flow and Doppler transthoracic echocardiogram is performed. Staff Referring Physician: Jory Ugarte Perishable Fruit Inspector: Emma Otoole Attending Provider: Maryellen Hamilton DO Summary 1. Complete two-dimensional, color flow and Doppler transthoracic echocardiogram is performed. 2. Normal left ventricular size, systolic and diastolic function. 3. Mild left atrial enlargement. 4. Mild mitral regurgitation. 5. Trivial aortic regurgitation. Left Ventricle Left ventricular chamber dimension is normal. Left ventricular systolic function is normal, estimated at 60-65. The left ventricular diastolic function is normal. Right Ventricle Right ventricular chamber dimension is normal. Left Atria Left atrial chamber dimension is mildly enlarged. Right Atria Right atrial chamber dimension is normal. Aortic Valve The aortic valve is trileaflet. There is mild aortic valve sclerosis. There is trace aortic valve regurgitation. Pulmonic Valve The pulmonic valve is normal. There is mild pulmonic regurgitation. Mitral Valve The mitral valve has normal leaflets. There is mild mitral valve regurgitation. Tricuspid Valve The tricuspid valve leaflets are normal. Pericardium/Pleural The pericardium appears normal. Aorta The aortic root size at the sinus of Valsalva is normal. Left Ventricular Outflow Tract Name Value Normal LVOT 2D LVOT Diameter 1.8 cm LVOT Doppler LVOT Peak Velocity 138 cm/s LVOT Peak Gradient 8 mmHg LVOT Mean Gradient 4 mmHg LVOT VTI 36 cm LVOT VTI/AV VTI Ratio 0.7 LVOT Stroke Volume 89 ml LVOT CO 5.6 l/min LVOT CI 2.6 l/min/m2 Pulmonic Valve Name Value Normal PV Doppler PV Peak Velocity 117 cm/s PV Peak Gradient 5 mmHg Mitral Valve Name Value Normal MV Diastolic Function MV E Peak Velocity 108 cm/s MV A Peak Velocity 103 cm/s MV E/A 1.1 MV Decel Time (PW) 223 ms MV Annular TDI MV E/e' (Septal) 14.7 MV E/e' (Lateral) 10.5 MV E/e' (Average) 12.6 Aortic Valve Name Value Normal AV Doppler AV Peak Velocity 197 cm/s AV Peak Gradient 15 mmHg AV Mean Gradient 9 mmHg AV VTI 51 cm AV Area (Cont Eq VTI) 1.7 cm2 >=3.0 AV Area (Cont Eq Marcelo) 1.7 cm2 AV DI (Marcelo) 0.70 AV Regurgitation 2D LVOT Area 2.5 cm2 Ventricles Name Value Normal LV Dimensions 2D/MM IVS Diastolic Thickness (2D) 0.6 cm 0.6-1.0 LVID Diastole (2D) 4.9 cm 3.8-5.2 LVIW Diastolic Thickness (2D) 0.8 cm 0.6-0.9 LVID Systole (2D) 2.8 cm 2.2-3.5 LVOT Diameter 1.8 cm LV Mass (2D Cubed) 111.74 g 67.00-162.00 LV Mass Index (2D Cubed) 52 g/m2 43-95 Relative Wall Thickness (2D) 0.32 <=0.42 LV Fractional Shortening/Ejection Fraction 2D/MM LV Fractional Shortening (2D) 43 % 27-45 LV EF (2D Teichholz) 74 % LV Diastolic Volume (4C MOD) 118 ml LV EF (4C MOD) 56 % LV Diastolic Volume (2C MOD) 110 ml LV EF (2C MOD) 71 % LV Diastolic Volume (BP MOD) 115 ml 46-106 LV Diastolic Volume Index (BP MOD) 54 ml/m2 29-61 LV Systolic Volume (BP MOD) 41 ml 14-42 LV Systolic Volume Index (BP MOD) 19 ml/m2 8-24 LV EF (BP MOD) 65 % 54-74 LV Diastolic Length (4C) 7.6 cm LV Systolic Length (4C) 6.4 cm LV Stroke Volume (4C MOD) 66 ml Atria Name Value Normal LA Dimensions LA Volume (4C A-L) 71 ml LA Volume (BP A-L) 81 ml RA Dimensions RA Systolic Major Goodell Length (4C) 5.5 cm 2.2-2.8 RA Area (4C) 15.2 cm2 <=18.0 Report Signatures
--- NOTE | 2025-09-03 01:08 | ECG_ITS ---
Test Date: 2025-09-03 01:25:36 Measurements Intervals Achille Rate: 79 P: 37 NM: 164 QRS: 21 QRSD: 86 T: 20 QT: 373 QTc: 428 Interpretive Statements SINUS RHYTHM BORDERLINE ST-T WAVE ABNORMALITY- INF/LAT LEADS BASELINE ARTIFACT- V4-V6 BORDERLINE ECG Compared to ECG 09/02/2025 19:56:15 NO SIGNIFICANT CHANGE Electronically Signed On 09-03-2025 08:26:17 CDT by Rivera Ortega D.O.
[2025-09-03] MEDS: FUROSEMIDE INJ 40 MG/4 ML VIAL IV PUSH ×2 (01:22→08:26)
[2025-09-03] MEDS: AZTREONAM 2 GM in SODIUM CHLORIDE 0.9% IV 100 ML IVPB ×4 (01:29→23:32)
[2025-09-03 01:52] LABS: Troponin I 0.168 ng/mL (0.000-0.034)
--- NOTE | 2025-09-03 02:00 | PM.IMHP ---
H&P: HPI History of Present Illness Date/Time: 09/03/25 02:00 Chief Complaint: Short of breath ?having panic attack? Narrative: 85-year-old female with a past medical history chronic kidney disease, osteoporosis, paranoid psychosis, GERD, essential hypertension, coronary artery disease with history of 3 cardiac stents, diastolic dysfunction who presented to the ER from [facility] due to shortness of breath and feeling panicked. She reports that she does not get the flu shot because she has bad reactions to the flu shot so she felt like she had the flu. She started having body aches on the . The next day she began having chills where she felt like she was cold on the inside her body and could not get warm. She was checking her temperature with an oral thermometer and had a T-max of 100.3?. She had noticed some rattling in her chest and became acutely short of breath on the resulting in her coming to the ER. She became so short of breath that she began to panic and had a panic attack. She denies any cough or congestion. She does live at [facility] living in there have been respiratory viruses in the facility. Her COVID flu and RSV PCR were negative in the ER. On arrival to the ER patient was noted to be hypoxic with oxygen saturations of 88% on room air. She does not use oxygen at home. She denies any chest pain or palpitations. She does have a history of CHF and heart failure. She does not think that her edema is changed much from baseline. She denies any orthopnea or paroxysmal nocturnal dyspnea. She does have gross her chronic lower extremity swelling and chronic arthritic knee pain. She denies any dysuria or changes in urinary frequency until after she had received IV Lasix in the ER. She does not usually have difficulty holding her urine. She has not had seen dysuria or hematuria. Review of Systems Review of Systems: 12 systems were reviewed with pertinent positives and negatives per HPI. Except as documented in the HPI, all other systems were reviewed and are negative. She has chronic alopecia and wears a wig. She has upper and lower dentures in place. She has chronic knee pain and states that she needs knee replacement surgery but she is not a candidate. She has scars of the right knee due to prior trauma and ORIF. [facility] Past Medical History Medical History (Updated 09/03/25 @ 06:24 by Maryellen Hamilton DO) Chronic right shoulder pain Back pain Osteopenia Statin intolerance Vitamin D deficiency Shingles Compression fracture of lumbar spine, non-traumatic Bilateral knee pain Myocardial infarction GERD without esophagitis Anxiety Paranoia (psychosis) Hyperlipidemia Chronic back pain Adult failure to thrive General weakness Fracture lt shoulder Arthritis rt shoulder, back Chronic lower back pain HTN (hypertension) Surgical History Surgical History Hx of shoulder surgery (~2013) lt shoulder replacement H/O right knee surgery (~1988) ORIF H/O: hysterectomy (~1978) Hx of cholecystectomy (~1992) Hx of appendectomy (~1978) Hx of heart artery stent (~2010) x3 Hx of cataract surgery (~1992) bilateral Family History Family History Mother Cerebrovascular accident, Onset Age: 77 Patient's mother is Family history of coronary artery disease Family history of osteoarthritis Family history of congestive heart failure Father Family history of lung cancer Patient's father is Family history of malignant neoplasm Grandparent Cerebrovascular accident Family history of heart disease in male family member before age 55 Social History Social History (Updated 09/03/25 @ 07:37 by Maryellen Hamilton DO) Social History: The patient's same-sex partner of 35 year (2018), she moved to [facility] in 2020. She has no children. She has has a power of new car salesperson (Mo Pelletier) who is an new car salesperson and a family friend. She said she used to smoke but quit in the . No alcohol or illicit drugs. Code status: DNR/DNI (she states that if she were unable to speak or had a stroke she would not want any aggressive care she would want to be made comfort measures. She would be okay with medications for blood pressure support but would not want any invasive respiratory support or cardiac support) Surrogate decision maker: Issa Griffith (friend) Smoking packs per day: 1 Smoking cigarettes per day: 20.0 Years smoked: 35 Smoking pack-years: 35.00 Smoking status: Former smoker Tobacco type: cigarettes Second hand tobacco smoke exposure: No Smoking end date: 07/11/80 Alcohol intake: never Substance use: never Substance use type: does not use Do You Feel Safe in your Home?: No Lack of Transportation: No Lack of Food: Never True Current Housing: I Have Housing Concerned About Future Housing: No Difficulty Paying Gas/Electric Bills: No Difficulty Paying for Meds: No Currently Unemployed: No Education: High School Diploma/GED Difficulty w/ Childcare or Family Care: No Living arrangements: assisted living Occupation/Education: retired Gender identity (if verbalized by the patient): Female Spiritual care concerns: No Agree to blood products: Yes Meds Home Medications and Allergies Home Medications ?Medication ?Instructions ?Recorded ?Confirmed ?Type pantoprazole 40 mg tablet,delayed 40 mg PO QAM 09/16/19 09/03/25 History release (Protonix) acetaminophen 325 mg tablet (Mapap 650 mg (2 x 325 mg) PO Q4H PRN 12/04/19 09/03/25 Rx (acetaminophen)) Mild Pain (1-3) Or Fever #30 tabs amlodipine 10 mg tablet 10 mg PO DAILY 05/28/21 09/03/25 History clopidogrel 75 mg tablet 75 mg PO DAILY #90 tabs 08/20/21 09/03/25 Rx lisinopril 20 1 tablet PO DAILY #90 tabs 10/01/21 09/03/25 Rx mg-hydrochlorothiazide 12.5 mg tablet furosemide 20 mg tablet 20 mg PO QAM PRN edema #30 tabs 02/28/23 09/03/25 Rx atenolol 100 mg tablet 50 mg PO QAM 07/05/23 09/03/25 History atenolol 100 mg tablet 100 mg PO QPM 07/05/23 09/03/25 History furosemide 40 mg tablet (Lasix) 40 mg PO QAM #90 tabs 09/08/23 09/03/25 Rx nitroglycerin 0.4 mg sublingual 0.4 mg sublingual Q5M PRN Angina 07/20/24 09/03/25 Rx tablet #30 tabs diazepam 5 mg tablet 5 mg PO DAILY PRN anxiety #90 tabs 11/26/24 09/03/25 Rx hydrocodone 7.5 mg-acetaminophen 1 tablet PO Q12H 09/03/25 09/03/25 History 325 mg tablet lidocaine 5 % topical patch 1 patch topical DAILY PRN pain 09/03/25 09/03/25 History loperamide 2 mg capsule (Imodium 2 mg PO .COMPLEX PRN loose stool 09/03/25 09/03/25 History A-D) potassium chloride 10 mEq 20 meq PO DAILY 09/03/25 09/03/25 History tablet,extended release (Klor-Con) psyllium husk 3.4 gram oral powder 3.4 g PO DAILY 09/03/25 09/03/25 History packet (Metamucil Fiber (aspartame)) Allergies Allergy/AdvReac Type Severity Reaction Status Date / Time Cephalosporins Allergy Severe DIFF Verified 09/03/25 02:58 BREATHING, THROAT SWELLING atorvastatin Allergy Unknown Muscle Pain Verified 09/03/25 02:58 azithromycin Allergy Unknown Anaphylaxis Verified 09/03/25 02:58 cephalexin Allergy Unknown Difficulty Verified 09/03/25 02:58 Breathing erythromycin base Allergy Unknown Anaphylaxis Verified 09/03/25 02:58 levofloxacin Allergy Unknown Rash Verified 09/03/25 02:58 Penicillins Allergy Unknown Anaphylaxis Verified 09/03/25 02:58 spironolactone Allergy Unknown Unknown Verified 09/03/25 02:58 Voichkn-KLN-VsN Reductase Allergy Unknown muscle Verified 09/03/25 02:58 Inhibitor (Kadoamo-Yte-Wkz weakness Reductase Inhibitor) Sulfa (Sulfonamide Allergy Unknown Anaphylaxis Verified 09/03/25 02:58 Antibiotics) Vital Signs Vital Signs - 24 hr 09/02/25 19:41 09/02/25 19:50 09/02/25 22:14 Temperature 99.6 F Pulse Rate 86 78 Respiratory Rate 25 H 20 Blood Pressure 171/63 H 175/69 H Pulse Oximetry 88 L 96 88 L Oxygen Delivery Room Air Nasal Cannula Room Air Oxygen Flow Rate 2 09/02/25 22:15 09/02/25 22:16 09/02/25 22:17 Temperature Pulse Rate 79 78 Respiratory Rate 23 H 18 Blood Pressure 175/69 H Pulse Oximetry 86 L 94 97 Oxygen Delivery Nasal Cannula Oxygen Flow Rate 2 09/02/25 22:18 09/03/25 01:00 09/03/25 01:15 Temperature Pulse Rate 78 77 76 Respiratory Rate 17 13 Blood Pressure Pulse Oximetry 97 98 Oxygen Delivery Oxygen Flow Rate 09/03/25 01:30 Temperature Pulse Rate 80 Respiratory Rate 19 Blood Pressure 166/63 H Pulse Oximetry Oxygen Delivery Oxygen Flow Rate Exam Narrative: Weight 93.5 kg BMI 32.3 Const: Other: Mildly ill-appearing, appears younger than stated age, obese HENMT: Other: Alopecia of the scalp, head is normocephalic atraumatic otherwise with a small nodule on the left christian, mucous membranes are tacky, no oral pharyngeal erythema, upper and lower dentures in place, nasal cannula in place Eyes: Other: Pupils are equal and reactive, bilateral lens implants noted, extraocular movements intact Neck: Other: No JVD, no lymphadenopathy, musculoskeletal tenderness in the posterior left neck Resp: Other: Crackles at the bases bilaterally, no increased work of breathing Cardio: Other: Regular rate, regular rhythm, 2+ bilateral radial pedal pulses GI: Other: Soft, nontender, normoactive bowel sounds : Other: Pure wick catheter in place Skin: Other: No jaundice, no pallor, alopecia to the scalp Neuro: Other: Alert oriented x4, speech is clear, no facial asymmetry, moves all extremities equally, no localizing neurologic deficits noted during conversation Extrem: Other: Edema bilateral lower extremities more so up into the thighs and lower abdomen with some pitting in these areas with more chronic changes to lower extremities Psych: Other: Appropriate mood and affect, pleasant and cooperative, judgment and insight intact H&P: Results Labs Labs: Laboratory Tests 09/03/25 04:00 09/02/25 09/02/25 09/03/25 20:02 22:42 01:08 WBC 12.1 H RBC 3.54 L Hgb 11.1 L Hct 34.1 L MCV 96.3 MCH 31.4 MCHC 32.6 RDW 12.9 Plt Count 216 MPV 10.6 H Immature Gran % (Auto) 0.8 H Neut % (Auto) 85.1 H Lymph % (Auto) 6.1 L Marinette % (Auto) 7.0 Eos % (Auto) 0.5 Baso % (Auto) 0.5 Lymph # (Auto) 0.74 L Marinette # (Auto) 0.8 H Eos # (Auto) 0.1 Baso # (Auto) 0.1 Abs Immat Gran (auto) 0.10 H Absolute Neuts (auto) 10.3 H Absolute Nucleated RBC 0.000 Nucleated RBC % 0.0 PT 15.1 H INR 1.2 APTT 38.5 H D-Dimer 2.78 H Sodium 135 L Potassium 3.8 Chloride 103 Carbon Dioxide 25 Anion Gap 7 BUN 33 H D Creatinine 1.25 H Estim Creat Clear Calc 33 Estimated GFR 41 L Glucose 141 H Lactic Acid 1.0 Calcium 8.6 Magnesium Total Bilirubin 1.8 H AST 28 ALT 18 Alkaline Phosphatase 97 Troponin I 0.120 H* 0.168 H* D NT-Pro-B Natriuret Pep 35846 H Total Protein 7.7 Albumin 3.9 Nasal MRSA (PCR) Influenza A (RT-PCR) Negative Influenza B (RT-PCR) Negative RSV (RT-PCR) Negative SARS-CoV-2 RNA (RT-PCR) Negative 09/03/25 09/03/25 01:39 04:00 WBC 8.5 RBC 3.30 L Hgb 10.3 L Hct 32.1 L MCV 97.3 MCH 31.2 MCHC 32.1 RDW 13.0 Plt Count 204 MPV 11.8 H Immature Gran % (Auto) 0.4 Neut % (Auto) 82.4 H Lymph % (Auto) 7.6 L Marinette % (Auto) 8.6 H Eos % (Auto) 0.4 Baso % (Auto) 0.6 Lymph # (Auto) 0.64 L Marinette # (Auto) 0.7 H Eos # (Auto) 0.0 Baso # (Auto) 0.1 Abs Immat Gran (auto) 0.03 Absolute Neuts (auto) 7.0 H Absolute Nucleated RBC 0.000 Nucleated RBC % 0.0 PT INR APTT D-Dimer Sodium Pending Potassium Pending Chloride Pending Carbon Dioxide Pending Anion Gap Pending BUN Pending Creatinine Pending Estim Creat Clear Calc Pending Estimated GFR Pending Glucose Pending Lactic Acid Calcium Pending Magnesium Pending Total Bilirubin AST ALT Alkaline Phosphatase Troponin I 0.190 H* NT-Pro-B Natriuret Pep Total Protein Albumin Nasal MRSA (PCR) Not detected Influenza A (RT-PCR) Influenza B (RT-PCR) RSV (RT-PCR) SARS-CoV-2 RNA (RT-PCR) Impressions Chest X-Ray 09/02/25 20:22 IMPRESSION: Patchy bilateral lower lobe opacities may represent pulmonary edema. CTA of the chest with PE protocol: Per my interpretation there was moderate pleural effusions and infiltrates versus pulmonary edema. Stat read interpretation is as follows. No evidence of acute main proximal or central pulmonary embolism but respiratory motion limits evaluation. Mild cardiomegaly with coronary artery cough with occasions. Ground-glass opacities with nodular infiltrates may reflect combination of edema infection inflammation or aspiration. Small to moderate bilateral pleural effusions severe T12 compression deformity. Final radiologic interpretation is pending. EKG: On my interpretation-- Normal sinus rhythm rate of [address] depression in V1 V2 V4 V5. Cardiology interpretation pending Assessment and Plan Assessment and plan (1) Acute hypoxic respiratory failure: Code(s): J96.01 - Acute respiratory failure with hypoxia Status: Acute (2) Acute exacerbation of CHF (congestive heart failure): Qualifiers: Heart failure type: diastolic Qualified Code(s): I50.33 - Acute on chronic diastolic (congestive) heart failure Code(s): I50.9 - Heart failure, unspecified Status: Acute (3) Pneumonia: Qualifiers: Pneumonia type: due to unspecified organism Laterality: bilateral Lung location: lower lobe of lung Qualified Code(s): J18.9 - Pneumonia, unspecified organism Code(s): J18.9 - Pneumonia, unspecified organism Status: Acute (4) Bilateral pleural effusion: Code(s): J90 - Pleural effusion, not elsewhere classified Status: Acute (5) Elevated troponin: Code(s): R79.89 - Other specified abnormal findings of blood chemistry Status: Acute (6) Anxiety: Code(s): F41.9 - Anxiety disorder, unspecified Status: Acute Plan Patient has acute hypoxic respiratory failure that is multifactorial. Hypoxic respiratory failures due to combination of CHF exacerbation and possibly some underlying pneumonia. Patient was started on empiric antibiotic therapy with aztreonam due to multiple drug allergies. MRSA screen was obtained and was negative. Patient did meet SIRS criteria with leukocytosis and mild tachypnea which had both resolved prior to my evaluation. The patient did not receive additional fluid resuscitation due to underlying concomitant CHF. Blood cultures have been obtained and are pending. The patient does have bilateral pleural effusions and elevated BNP the with cardiomegaly noted on imaging. She has prior echocardiogram from 2022 demonstrating diastolic dysfunction. She likely has some acute on chronic heart failure. Will obtain echocardiogram to ensure that there is not any worsening cardiac function or new valvular disease compared to prior imaging. Will monitor strict I&O's and daily weights. Patient received 40 mEq of Lasix in the ER will continue Lasix 40 mg IV b.i.d.. Will monitor strict I&O's and daily weights. The patient does have an elevated troponin likely due to demand ischemia from acute hypoxic respiratory failure causing increased cardiac demand with some demand ischemia in the setting of chronic coronary artery disease and chronic kidney disease. She reported did trend up slightly but patient has not had any active chest pain to suggest acute primary cardiac event. Will resume home statin and Plavix per Patient does have chronic kidney disease but creatinine is stable at baseline. Repeat electrolyte panel this a.m. has demonstrated stability of creatinine but patient did have some mild hypo magnesemia. Will give the patient a for g magnesium sulfate rider. Will monitor electrolyte panel closely in the setting of diuresis. The patient does have chronic hypertension but blood pressures are stable. Will resume the patient's home lisinopril hydrochlorothiazide, atenolol and Norvasc. MEDICAL DECISION MAKING NARRATIVE -Spoke with the ED provider in detail regarding patient's evaluation, workup and management -Patient seen and examined at bedside -Collaborated with patient's nurse at the bedside in detail and addressed all concerns -Labs, electrolytes, radiology, investigations and test results personally reviewed and interpreted unless otherwise specified -ED/Consult/Nursing/Ancilliary notes on the chart reviewed and appreciated -Spoke with patient at bedside and diagnosis and plan of care was discussed. All questions answered. Quality VTE Prophylaxis VTE prophylaxis: pharmacologic ordered (Heparin 5000 units subQ q.12 hours) Hospitalist [facility] Advance Care Plan I have confirmed that the patient's Advanced Care Plan is present, code status is documented, or surrogate decision maker is listed in patient medical record.: Yes Medication Reconciliation I have utilized all available resources to obtain, update and review the patients current medications (includes all prescriptions, OTC, herbals, cannabis, and nutritional supplements).: Yes
--- NOTE | 2025-09-03 02:37 | PC.NURSE ---
This RN called [facility] and gave update on pt.
--- NOTE | 2025-09-03 02:46 | ADMGEN ---
This patient, Ofelia Monzon, was admitted to IMU Room 205-01. Patient/family oriented to hospital policies and general routines including ID bracelet, bed and alarms, visiting hours, pain management, procedures, bathroom and other care routines, personal items, smoking policy, room service/diet, and visiting hours. Information on how to activate the Rapid Response Team has been discussed. Patient/Family are encouraged to report perceived risks to care and to ask questions if they do not understand what they are told or what they should do.
[2025-09-03 02:58] LABS: MRSA (PCR) NOT DETECTED (NOT DETECTE)
[2025-09-03 04:55] LABS: Troponin I 0.190 ng/mL (0.000-0.034)
[2025-09-03 06:10] LABS: Hematocrit 32.1 % (37.0-47.0); Hemoglobin 10.3 g/dL (12.0-15.0); Immature Granulocyte Percent A 0.4 % (0-0.5); Lymphocytes Absolute Auto 0.64 K/mm3 (0.9-3.2); Mean Corpuscular HGB Conc 32.1 g/dl (32-36); Mean Corpuscular Hemoglobin 31.2 pg (26-34); Mean Corpuscular Volume 97.3 fl (80-100); Nucleated Red Blood Cells Absolute Auto 0.000 K/mm3 (0.0-0.012); Nucleated Red Blood Cells Perc 0.0 % (0.0-0.2); Platelet Count Result 204 k/mm3 (150-375); Red Blood Count 3.30 M/mm3 (4.2-5.4); White Blood Count 8.5 K/mm3 (4.5-10.0)
[2025-09-03 06:17] LABS: Anion Gap 10 mmol/L (4-12); Blood Urea Nitrogen 32 mg/dL (7-17); Calcium 8.3 mg/dL (8.4-10.2); Carbon Dioxide 23 mmol/L (22-30); Chloride 103 mmol/L (98-107); Estimated CRCL calculation 33 ml/min; Estimated Glomerular Filt Rate 40; Glucose 153 mg/dL (65-110); Magnesium 1.5 mg/dL (1.6-2.3); Potassium 3.5 mmol/L (3.4-5.0); Sodium 136 mmol/L (137-145)
[2025-09-03 07:36] LABS: Troponin I 0.212 ng/mL (0.000-0.034)
[2025-09-03] MEDS: MAGNESIUM SULF 4 GM/WATER100ML 4 GM/100 ML BAG IVPB (08:24)
[2025-09-03] MEDS: HYDROcodone/acetaminophen (*CRX) 7.5-325 MG TABLET 1 TAB PO ×2 (08:25→20:12)
[2025-09-03] MEDS: PSYLLIUM SUGAR FREE POWDER PACKET 1 PACKET PO (08:25)
[2025-09-03] MEDS: POTASSIUM CHLORIDE 20 MEQ ER TABLET PO (08:25)
[2025-09-03] MEDS: PANTOPRAZOLE 40 MG TABLET PO (08:26)
[2025-09-03] MEDS: CLOPIDOGREL BISULFATE 75 MG TABLET PO (08:26)
--- NOTE | 2025-09-03 08:29 | P.PNIM_ITS ---
Progress Note: A&P Assessment and Plan (1) Acute hypoxic respiratory failure: Code(s): J96.01 - Acute respiratory failure with hypoxia Status: Acute Assessment and Plan: Chest x-ray shows patchy bilateral lower lobe opacities may represent pulmonary edema Chest CT pending Patient met sepsis criteria with leukocytosis and mild tachypnea Due to CHF recommend gentle fluid resuscitation Continue aztreonam Continue linezolid Continue Lasix Quad screen negative Baseline room air Currently on 2 L Nasal MRSA negative (2) Acute exacerbation of CHF (congestive heart failure): Qualifiers: Heart failure type: diastolic Qualified Code(s): I50.33 - Acute on chronic diastolic (congestive) heart failure Code(s): I50.9 - Heart failure, unspecified Status: Acute Assessment and Plan: Echocardiogram pending Prior echocardiogram from 2022 demonstrating diastolic dysfunction Elevated troponin BNP 10,200 strict I&O's and daily weights Possible demand ischemia History of 3 cardiac stents Continue lisinopril hydrochlorothiazide, atenolol and Norvasc (3) Pneumonia: Qualifiers: Laterality: bilateral Lung location: lower lobe of lung Pneumonia type: due to unspecified organism Qualified Code(s): J18.9 - Pneumonia, unspecified organism Code(s): J18.9 - Pneumonia, unspecified organism Status: Acute Assessment and Plan: Same as above (4) Bilateral pleural effusion: Code(s): J90 - Pleural effusion, not elsewhere classified Status: Acute Assessment and Plan: Pending CT results Lasix 40 mg IV b.i.d. (5) Elevated troponin: Code(s): R79.89 - Other specified abnormal findings of blood chemistry Status: Acute Assessment and Plan: Possible demand ischemia Cardiology consulted and appreciate recommendations (6) Anxiety: Code(s): F41.9 - Anxiety disorder, unspecified Status: Acute Assessment and Plan: After evaluation will consider BuSpar Diazepam 5 mg p.r.n. anxiety home medications Subjective Date/time seen: 09/03/25 08:29 Interval history: Baseline patient uses walker due to knee replacement. Patient has a history of a CHF exacerbation. Baseline patient to not use oxygen. Currently patient on 2 L. Review of Systems Review of Systems: 12 systems were reviewed with pertinent positives and negatives per HPI. Except as documented in the HPI, all other systems were reviewed and are negative. She has chronic alopecia and wears a wig. She has upper and lower dentures in place. She has chronic knee pain and states that she needs knee replacement surgery but she is not a candidate. She has scars of the right knee due to prior trauma and ORIF. Exam Narrative: Weight 93.5 kg BMI 32.3 Const: Other: Mildly ill-appearing, appears younger than stated age, obese HENMT: Other: Alopecia of the scalp, head is normocephalic atraumatic otherwise with a small nodule on the left adventism, mucous membranes are tacky, no oral pharyngeal erythema, upper and lower dentures in place, nasal cannula in place Eyes: Other: Pupils are equal and reactive, bilateral lens implants noted, extraocular mov ements intact Neck: Other: No JVD, no lymphadenopathy, musculoskeletal tenderness in the posterior left neck Resp: Other: Crackles at the bases bilaterally, no increased work of breathing Cardio: Other: Regular rate, regular rhythm, 2+ bilateral radial pedal pulses GI: Other: Soft, nontender, normoactive bowel sounds : Other: Pure wick catheter in place Skin: Other: No jaundice, no pallor, alopecia to the scalp Neuro: Other: Alert oriented x4, speech is clear, no facial asymmetry, moves all extremities equally, no localizing neurologic deficits noted during conversation Extrem: Other: Edema bilateral lower extremities more so up into the thighs and lower abdomen with some pitting in these areas with more chronic changes to lower extremities Psych: Other: Appropriate mood and affect, pleasant and cooperative, judgment and insight intact Objective Data Vital Signs Vital Signs: Vital Signs - 24 hr 09/02/25 19:41 09/02/25 19:50 09/02/25 22:14 Temperature 99.6 F Pulse Rate 86 78 Respiratory Rate 25 H 20 Blood Pressure 171/63 H 175/69 H Pulse Oximetry 88 L 96 88 L Oxygen Delivery Room Air Nasal Cannula Room Air Oxygen Flow Rate 2 09/02/25 22:15 09/02/25 22:16 09/02/25 22:17 Temperature Pulse Rate 79 78 Respiratory Rate 23 H 18 Blood Pressure 175/69 H Pulse Oximetry 86 L 94 97 Oxygen Delivery Nasal Cannula Oxygen Flow Rate 2 09/02/25 22:18 09/03/25 01:00 09/03/25 01:15 Temperature Pulse Rate 78 77 76 Respiratory Rate 17 13 Blood Pressure Pulse Oximetry 97 98 Oxygen Delivery Oxygen Flow Rate 09/03/25 01:30 09/03/25 02:34 09/03/25 02:37 Temperature Pulse Rate 80 79 Respiratory Rate 19 22 H Blood Pressure 166/63 H 160/82 H Pulse Oximetry 97 96 Oxygen Delivery Nasal Cannula Oxygen Flow Rate 3 09/03/25 02:50 09/03/25 03:49 09/03/25 04:00 Temperature 99.4 F Pulse Rate 81 Respiratory Rate 20 Blood Pressure 154/49 H Pulse Oximetry 97 96 96 Oxygen Delivery Nasal Cannula Nasal Cannula Oxygen Flow Rate 2 2 09/03/25 04:00 09/03/25 06:00 09/03/25 07:54 Temperature 98.9 F Pulse Rate 79 65 76 Respiratory Rate 24 H Blood Pressure 175/50 H Pulse Oximetry 97 Oxygen Delivery Oxygen Flow Rate Intake/Output Intake/Output: Intake & Output 08/31/25 09/01/25 09/02/25 09/03/25 23:59 23:59 23:59 23:59 Intake Total 480 Output Total 1000 Balance -520 Meds/Results Medications: Active Medications Generic Name Dose Route Start Last Admin Trade Name Freq PRN Reason Stop Dose Admin Acetaminophen 650 mg 09/03/25 00:43 Acetaminophen 325 Mg Tablet PO Q4H PRN Mild Pain (1-3) or Fever Hydrocodone Bitart/Acetaminophen 1 tab 09/03/25 09:00 Hydrocodone/Acetaminophen (*Crx) 7.5-325 Mg Tablet PO Q12HR [facility] Amlodipine Besylate 10 mg 09/03/25 09:00 Amlodipine Besylate 10 Mg Tablet PO DAILY [facility] Atenolol 50 mg 09/03/25 09:00 Atenolol 50 Mg Tablet PO QAM [facility] Atenolol 100 mg 09/03/25 21:00 Atenolol 50 Mg Tablet PO QHS [facility] Clopidogrel Bisulfate 75 mg 09/03/25 09:00 Clopidogrel Bisulfate 75 Mg Tablet PO DAILY [facility] Dextrose 12.5 gm 09/03/25 00:49 Dextrose 50% 25 Gm/50 Ml Syringe IV PUSH PRN PRN Hypoglycemia Protocol Diazepam 5 mg 09/03/25 05:54 Diazepam (*Crx) 5 Mg Tablet PO DAILY PRN Anxiety Furosemide 40 mg 09/03/25 09:00 Furosemide Inj 40 Mg/4 Ml Vial IV PUSH Q12HR [facility] Glucagon 1 mg 09/03/25 00:49 Glucagon For Inj 1 Mg Vial IM PRN PRN Hypoglycemia Protocol Glucose 15 gm 09/03/25 00:49 Glucose Oral Gel 15 Gm Of Glucse In 37.5 Gm Tube PO PRN PRN Hypoglycemia Protocol Heparin Sodium (Porcine) 5,000 units 09/03/25 09:00 Heparin Sodium 5,000 Units/Ml Vial SUB-Q Q12HR [facility] Hydrochlorothiazide 12.5 mg 09/03/25 09:00 Hydrochlorothiazide 12.5 Mg Capsule PO QAM [facility] Aztreonam 2 gm/ Sodium 100 mls @ 200 mls/hr 09/03/25 08:00 Chloride IVPB Q8H [facility] Dextrose 1,000 mls @ 100 mls/hr 09/03/25 00:49 Dextrose 5% 1,000 Ml IVPB PRN PRN Hypoglycemia Protocol Magnesium Sulfate 4 gm in 100 mls @ 25 mls/hr 09/03/25 06:19 Magnesium Sulf 4 Gm/[id number] IVPB 09/03/25 10:18 ONCE ONE Lidocaine 1 patch 09/03/25 05:54 Lidocaine 5% Patch TOPICAL DAILY PRN Pain Linezolid 600 mg 09/03/25 09:00 Linezolid 600 Mg Tablet PO 09/05/25 09:00 Q12HR [facility] Lisinopril 20 mg 09/03/25 09:00 Lisinopril 20 Mg Tablet PO QAM [facility] Nitroglycerin 0.4 mg 09/03/25 05:58 Nitroglycerin Sl 0.4 Mg Tablet SUBLINGUAL Q5M PRN Angina Ondansetron HCl 4 mg 09/03/25 00:43 Ondansetron Inj 4 Mg/2 Ml Vial IV PUSH Q4H PRN Nausea Pantoprazole Sodium 40 mg 09/03/25 09:00 Pantoprazole 40 Mg Tablet PO QAM [facility] Perflutren Lipid Microsphere 0 ml 09/03/25 07:43 Perflutren Lipid Microspheres 1.5 Ml Vial Diluted To 10 Ml Total Volume IV PUSH 09/06/25 07:43 ONCE PRN adequate visualization Protocol Potassium Chloride 20 meq 09/03/25 09:00 Potassium Chloride 20 Meq Er Tablet PO DAILY [facility] Psyllium Hydrophilic Mucilloid 1 packet 09/03/25 09:00 Psyllium Sugar Free Powder Packet PO DAILY [facility] Radiology Results: ITS Impressions Chest X-Ray 09/02/25 20:22 IMPRESSION: Patchy bilateral lower lobe opacities may represent pulmonary edema. [ ] Labs Labs: Laboratory Results - last 24 hr 09/02/25 09/02/25 09/03/25 20:02 22:42 01:08 WBC 12.1 H RBC 3.54 L Hgb 11.1 L Hct 34.1 L MCV 96.3 MCH 31.4 MCHC 32.6 RDW 12.9 Plt Count 216 MPV 10.6 H Immature Gran % (Auto) 0.8 H Neut % (Auto) 85.1 H Lymph % (Auto) 6.1 L [place] % (Auto) 7.0 Eos % (Auto) 0.5 Baso % (Auto) 0.5 Lymph # (Auto) 0.74 L [place] # (Auto) 0.8 H Eos # (Auto) 0.1 Baso # (Auto) 0.1 Abs Immat Gran (auto) 0.10 H Absolute Neuts (auto) 10.3 H Absolute Nucleated RBC 0.000 Nucleated RBC % 0.0 PT 15.1 H INR 1.2 APTT 38.5 H D-Dimer 2.78 H Sodium 135 L Potassium 3.8 Chloride 103 Carbon Dioxide 25 Anion Gap 7 BUN 33 H D Creatinine 1.25 H Estim Creat Clear Calc 33 Estimated GFR 41 L Glucose 141 H Lactic Acid 1.0 Calcium 8.6 Magnesium Total Bilirubin 1.8 H AST 28 ALT 18 Alkaline Phosphatase 97 Troponin I 0.120 H* 0.168 H* D NT-Pro-B Natriuret Pep 71087 H Total Protein 7.7 Albumin 3.9 Nasal MRSA (PCR) Influenza A (RT-PCR) Negative Influenza B (RT-PCR) Negative RSV (RT-PCR) Negative SARS-CoV-2 RNA (RT-PCR) Negative 09/03/25 09/03/25 09/03/25 01:39 04:00 07:01 WBC 8.5 RBC 3.30 L Hgb 10.3 L Hct 32.1 L MCV 97.3 MCH 31.2 MCHC 32.1 RDW 13.0 Plt Count 204 MPV 11.8 H Immature Gran % (Auto) 0.4 Neut % (Auto) 82.4 H Lymph % (Auto) 7.6 L [place] % (Auto) 8.6 H Eos % (Auto) 0.4 Baso % (Auto) 0.6 Lymph # (Auto) 0.64 L [place] # (Auto) 0.7 H Eos # (Auto) 0.0 Baso # (Auto) 0.1 Abs Immat Gran (auto) 0.03 Absolute Neuts (auto) 7.0 H Absolute Nucleated RBC 0.000 Nucleated RBC % 0.0 PT INR APTT D-Dimer Sodium 136 L Potassium 3.5 Chloride 103 Carbon Dioxide 23 Anion Gap 10 BUN 32 H Creatinine 1.28 H Estim Creat Clear Calc 33 Estimated GFR 40 L Glucose 153 H Lactic Acid Calcium 8.3 L Magnesium 1.5 L Total Bilirubin AST ALT Alkaline Phosphatase Troponin I 0.190 H* 0.212 H* NT-Pro-B Natriuret Pep Total Protein Albumin Nasal MRSA (PCR) Not detected Influenza A (RT-PCR) Influenza B (RT-PCR) RSV (RT-PCR) SARS-CoV-2 RNA (RT-PCR) Quality VTE Prophylaxis VTE prophylaxis: pharmacologic ordered (Heparin 5000 units subQ q.12 hours) Hospitalist MIPS Advance Care Plan I have confirmed that the patient's Advanced Care Plan is present, code status is documented, or surrogate decision maker is listed in patient medical record.: Yes Medication Reconciliation I have utilized all available resources to obtain, update and review the patients current medications (includes all prescriptions, OTC, herbals, cannabis, and nutritional supplements).: Yes
[2025-09-03] MEDS: LINEZOLID 600 MG TABLET PO ×2 (08:36→20:12)
--- NOTE | 2025-09-03 13:06 | PCPTNOTE ---
1300, patient reports that she is tired right now and wants to rest. Physical therapy will attempt to come back again later as time allows.
--- NOTE | 2025-09-03 14:53 | PM.CNCAR ---
Assessment and Plan Assessment and plan (1) Acute dyspnea: Code(s): R06.00 - Dyspnea, unspecified Status: Acute Assessment and Plan: Due to pneumonia likely. NTproBNP 10,200. Change Lasix 40 mg IV BID to Lasix 40 mg PO daily (her home dose). (2) Pneumonia: Qualifiers: Laterality: bilateral Lung location: lower lobe of lung Pneumonia type: due to unspecified organism Qualified Code(s): J18.9 - Pneumonia, unspecified organism Code(s): J18.9 - Pneumonia, unspecified organism Status: Acute Assessment and Plan: On antibiotics as per hospitalist. (3) Elevated troponin: Code(s): R79.89 - Other specified abnormal findings of blood chemistry Status: Acute Assessment and Plan: Moderately elevated up to 0.212. Probably due to pneumonia. Trend to peak. 09/03/25 Echo: EF 60-65%, E/e' 12 s/o mild diastolic dysfunction, mild LAE, mild MR, trace AI. Check troponin in AM. (4) CAD (coronary artery disease): Qualifiers: Coronary Disease-Associated Artery/Lesion type: unspecified vessel or lesion type [place] vs. transplanted heart: [place] heart Associated angina: without angina Qualified Code(s): I25.10 - Atherosclerotic heart disease of [place] coronary artery without angina pectoris Code(s): I25.10 - Atherosclerotic heart disease of [place] coronary artery without angina pectoris Status: Acute Assessment and Plan: Stable. On Plavix as she does not tolerate aspirin causing upset stomach. (5) HTN (hypertension): Qualifiers: Hypertension type: unspecified Qualified Code(s): I10 - Essential (primary) hypertension Code(s): I10 - Essential (primary) hypertension Status: Acute Assessment and Plan: High. Resume home BP medication. Monitor. (6) Hyperlipidemia: Qualifiers: Hyperlipidemia type: unspecified Qualified Code(s): E78.5 - Hyperlipidemia, unspecified Code(s): E78.5 - Hyperlipidemia, unspecified Status: Acute Assessment and Plan: Intolerant of statins and Zetia due to myalgia. History of Present Illness History of Present Illness Consult date/time: 09/03/25 14:53 Reason For Visit: Acute hypoxic respiratory failure, CHF, PNA, elev Narrative: 85 yr old woman who I saw last in October 2021 admitted for sob. She has a history of CAD (aspirin causes upset stomach), hypertension, dyslipidemia (Intolerant of statins, Zetia and Fenofibrate due to myalgia), CKD stage III. States 2 days ago she felt fever, chills and sob. She thought she was having her usual panic attack but sob did not get better so she came to hospital. It was found she has pneumonia and elevated troponin. She can walk short distance only due to chronic knee pain and she also has chronic hip and back pain. Denies chest pain, orthopnea, dizziness, palpitations. 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 Then had staged procedure with ALONSO to mid RCA 2 weeks later.) - 07/2014 ELECTROPHYSIOLOGY: 12/01/19 EKG: Sinus rhythm. EVR (5 day event monitor: Sinus rhythm, average HR 64 bpm; SVT the fastest at 129 bpm lasting 4 beat, and the longest is 8 beats.) - 03/24/2018 STRESS TESTS: MPI (Lexiscan myoview: Negative for ischemia.) - 12/31/2016 Review of Systems Review of Systems: All systems reviewed & are unremarkable except as noted in HPI and below Constitutional: Constitutional: Reports as per HPI, Reports chills, Reports fatigue and Reports fever(s) Cardiovascular: Cardiovascular: Reports as per HPI, Denies chest pain and Denies irregular heart rhythm Respiratory: Respiratory: Reports as per HPI and Reports dyspnea Gastrointestinal: Gastrointestinal: Reports as per HPI and Denies abdominal pain Genitourinary: Genitourinary: Reports as per HPI and Denies dysuria Musculoskeletal: Musculoskeletal: Reports as per HPI, Reports back pain and Reports arthralgias Neurologic: Reports as per HPI, Denies dizziness and Denies syncope [facility] Past Medical History Medical History (Updated 09/03/25 @ 14:57 by Rivera Ortega DO) Chronic right shoulder pain Back pain Osteopenia Statin intolerance Vitamin D deficiency Shingles Compression fracture of lumbar spine, non-traumatic Bilateral knee pain Myocardial infarction GERD without esophagitis Anxiety Paranoia (psychosis) Hyperlipidemia Chronic back pain Adult failure to thrive General weakness Fracture lt shoulder Arthritis rt shoulder, back Chronic lower back pain HTN (hypertension) Surgical History Surgical History Hx of shoulder surgery (~2013) lt shoulder replacement H/O right knee surgery (~1988) ORIF H/O: hysterectomy (~1978) Hx of cholecystectomy (~1992) Hx of appendectomy (~1978) Hx of heart artery stent (~2010) x3 Hx of cataract surgery (~1992) bilateral Family History Family History Mother Cerebrovascular accident, Onset Age: 77 Patient's mother is Family history of coronary artery disease Family history of osteoarthritis Family history of congestive heart failure Father Family history of lung cancer Patient's father is Family history of malignant neoplasm Grandparent Cerebrovascular accident Family history of heart disease in male family member before age 55 Social History Social History (Updated 09/03/25 @ 07:37 by Maryellen Hamilton DO) Social History: The patient's same-sex partner of 35 year (2018), she moved to [facility] in 2019. She has no children. She has has a power of insurance attorney (Mo Pelletier) who is an insurance attorney and a family friend. She said she used to smoke but quit in the . No alcohol or illicit drugs. Code status: DNR/DNI (she states that if she were unable to speak or had a stroke she would not want any aggressive care she would want to be made comfort measures. She would be okay with medications for blood pressure support but would not want any invasive respiratory support or cardiac support) Surrogate decision maker: Issa Griffith (friend) Smoking packs per day: 1 Smoking cigarettes per day: 20.0 Years smoked: 35 Smoking pack-years: 35.00 Smoking status: Former smoker Tobacco type: cigarettes Second hand tobacco smoke exposure: No Smoking end date: 07/11/80 Alcohol intake: never Substance use: never Substance use type: does not use Do You Feel Safe in your Home?: No Lack of Transportation: No Lack of Food: Never True Current Housing: I Have Housing Concerned About Future Housing: No Difficulty Paying Gas/Electric Bills: No Difficulty Paying for Meds: No Currently Unemployed: No Education: High School Diploma/GED Difficulty w/ Childcare or Family Care: No Living arrangements: assisted living Occupation/Education: retired Gender identity (if verbalized by the patient): Female Spiritual care concerns: No Agree to blood products: Yes Meds Home Medications and Allergies Home Medications ?Medication ?Instructions ?Recorded ?Confirmed ?Type pantoprazole 40 mg tablet,delayed 40 mg PO QAM 09/16/19 09/03/25 History release (Protonix) acetaminophen 325 mg tablet (Map[place] 650 mg (2 x 325 mg) PO Q4H PRN 12/04/19 09/03/25 Rx (acetaminophen)) Mild Pain (1-3) Or Fever #30 tabs amlodipine 10 mg tablet 10 mg PO DAILY 05/28/21 09/03/25 History clopidogrel 75 mg tablet 75 mg PO DAILY #90 tabs 08/20/21 09/03/25 Rx lisinopril 20 1 tablet PO DAILY #90 tabs 10/01/21 09/03/25 Rx mg-hydrochlorothiazide 12.5 mg tablet furosemide 20 mg tablet 20 mg PO QAM PRN edema #30 tabs 02/28/23 09/03/25 Rx atenolol 100 mg tablet 50 mg PO QAM 07/05/23 09/03/25 History atenolol 100 mg tablet 100 mg PO QPM 07/05/23 09/03/25 History furosemide 40 mg tablet (Lasix) 40 mg PO QAM #90 tabs 09/08/23 09/03/25 Rx nitroglycerin 0.4 mg sublingual 0.4 mg sublingual Q5M PRN Angina 07/20/24 09/03/25 Rx tablet #30 tabs diazepam 5 mg tablet 5 mg PO DAILY PRN anxiety #90 tabs 11/26/24 09/03/25 Rx hydrocodone 7.5 mg-acetaminophen 1 tablet PO Q12H 09/03/25 09/03/25 History 325 mg tablet lidocaine 5 % topical patch 1 patch topical DAILY PRN pain 09/03/25 09/03/25 History loperamide 2 mg capsule (Imodium 2 mg PO .COMPLEX PRN loose stool 09/03/25 09/03/25 History A-D) potassium chloride 10 mEq 20 meq PO DAILY 09/03/25 09/03/25 History tablet,extended release (Klor-Con) psyllium husk 3.4 gram oral powder 3.4 g PO DAILY 09/03/25 09/03/25 History packet (Metamucil Fiber (aspartame)) Allergies Allergy/AdvReac Type Severity Reaction Status Date / Time Cephalosporins Allergy Severe DIFF Verified 09/03/25 02:58 BREATHING, THROAT SWELLING atorvastatin Allergy Unknown Muscle Pain Verified 09/03/25 02:58 azithromycin Allergy Unknown Anaphylaxis Verified 09/03/25 02:58 cephalexin Allergy Unknown Difficulty Verified 09/03/25 02:58 Breathing erythromycin base Allergy Unknown Anaphylaxis Verified 09/03/25 02:58 levofloxacin Allergy Unknown Rash Verified 09/03/25 02:58 Penicillins Allergy Unknown Anaphylaxis Verified 09/03/25 02:58 spironolactone Allergy Unknown Unknown Verified 09/03/25 02:58 Aobvxab-DTU-NcB Reductase Allergy Unknown muscle Verified 09/03/25 02:58 Inhibitor (Sznzrtu-Kmx-Kwa weakness Reductase Inhibitor) Sulfa (Sulfonamide Allergy Unknown Anaphylaxis Verified 09/03/25 02:58 Antibiotics) Vital Signs Vital Signs - 24 hr 09/02/25 19:41 09/02/25 19:50 09/02/25 22:14 Temperature 99.6 F Pulse Rate 86 78 Respiratory Rate 25 H 20 Blood Pressure 171/63 H 175/69 H Pulse Oximetry 88 L 96 88 L Oxygen Delivery Room Air Nasal Cannula Room Air Oxygen Flow Rate 2 09/02/25 22:15 09/02/25 22:16 09/02/25 22:17 Temperature Pulse Rate 79 78 Respiratory Rate 23 H 18 Blood Pressure 175/69 H Pulse Oximetry 86 L 94 97 Oxygen Delivery Nasal Cannula Oxygen Flow Rate 2 09/02/25 22:18 09/03/25 01:00 09/03/25 01:15 Temperature Pulse Rate 78 77 76 Respiratory Rate 17 13 Blood Pressure Pulse Oximetry 97 98 Oxygen Delivery Oxygen Flow Rate 09/03/25 01:30 09/03/25 02:34 09/03/25 02:37 Temperature Pulse Rate 80 79 Respiratory Rate 19 22 H Blood Pressure 166/63 H 160/82 H Pulse Oximetry 97 96 Oxygen Delivery Nasal Cannula Oxygen Flow Rate 3 09/03/25 02:50 09/03/25 03:49 09/03/25 04:00 Temperature 99.4 F Pulse Rate 81 Respiratory Rate 20 Blood Pressure 154/49 H Pulse Oximetry 97 96 96 Oxygen Delivery Nasal Cannula Nasal Cannula Oxygen Flow Rate 2 2 09/03/25 04:00 09/03/25 06:00 09/03/25 07:54 Temperature 98.9 F Pulse Rate 79 65 76 Respiratory Rate 24 H Blood Pressure 175/50 H Pulse Oximetry 97 Oxygen Delivery Oxygen Flow Rate 09/03/25 08:00 09/03/25 08:00 09/03/25 08:26 Temperature Pulse Rate 79 77 Respiratory Rate Blood Pressure Pulse Oximetry 97 Oxygen Delivery Nasal Cannula Oxygen Flow Rate 2 09/03/25 10:00 09/03/25 11:53 09/03/25 12:00 Temperature 98.7 F Pulse Rate 66 70 65 Respiratory Rate 16 Blood Pressure 155/51 H Pulse Oximetry 96 Oxygen Delivery Oxygen Flow Rate 09/03/25 12:00 09/03/25 14:00 Temperature Pulse Rate 63 Respiratory Rate Blood Pressure Pulse Oximetry 99 Oxygen Delivery Nasal Cannula Oxygen Flow Rate 2 Exam Const: General: cooperative, healthy appearing and comfortable Resp: Auscultation: crackles, no rhonchi and no wheezes Cardio: Rate: regular rate Rhythm: regular rhythm Heart sounds: no murmurs Peripheral pulses: dorsalis pedis present GI: GI Palp: No abdominal tenderness and Yes Soft to palpation Neuro: General: oriented to person, oriented to place and oriented to time Extrem: Right lower extremity: no edema Left lower extremity: no edema Results Labs and Meds 09/03/25 04:00 09/03/25 04:00 Lab results: Cardiac Enzymes 09/02/25 09/02/25 09/03/25 Range/Units 20:02 22:42 01:08 AST 28 (14-36) U/L Troponin I 0.120 H* 0.168 H* D (0.000-0.034) ng/mL 09/03/25 09/03/25 Range/Units 04:00 07:01 AST (14-36) U/L Troponin I 0.190 H* 0.212 H* (0.000-0.034) ng/mL Coagulation 09/02/25 Range/Units 22:42 PT 15.1 H (11.1-14.7) Seconds APTT 38.5 H (22.3-36.8) Seconds CBC 09/02/25 09/03/25 Range/Units 20:02 04:00 WBC 12.1 H 8.5 (4.5-10.0) K/mm3 RBC 3.54 L 3.30 L (4.2-5.4) M/mm3 Hgb 11.1 L 10.3 L (12.0-15.0) g/dL Hct 34.1 L 32.1 L (37.0-47.0) % Plt Count 216 204 (150-375) k/mm3 Lymph # (Auto) 0.74 L 0.64 L (0.9-3.2) K/mm3 [place] # (Auto) 0.8 H 0.7 H (0.1-0.6) K/mm3 Eos # (Auto) 0.1 0.0 (0-0.3) K/mm3 Baso # (Auto) 0.1 0.1 (0.0-0.1) K/mm3 Comprehensive Metabolic Panel 09/02/25 09/03/25 Range/Units 20:02 04:00 Sodium 135 L 136 L (137-145) mmol/L Potassium 3.8 3.5 (3.4-5.0) mmol/L Chloride 103 103 (98-107) mmol/L Carbon Dioxide 25 23 (22-30) mmol/L BUN 33 H D 32 H (7-17) mg/dL Creatinine 1.25 H 1.28 H (0.7-1.0) mg/dL Glucose 141 H 153 H (65-110) mg/dL Calcium 8.6 8.3 L (8.4-10.2) mg/dL AST 28 (14-36) U/L ALT 18 (6-35) U/L Alkaline Phosphatase 97 (38-126) U/L Total Protein 7.7 (6.3-8.2) g/dL Albumin 3.9 (3.5-5.1) g/dL Intake and Output 09/02/25 09/03/25 09/03/25 23:59 07:59 15:59 Intake Total 480 480 Output Total 1000 Balance -520 480 Intake: Oral 480 480 Output: Urine 1000 Patient Weight 09/03/25 23:59 Weight 93.5 kg
--- NOTE | 2025-09-03 17:25 | PC.NURSE ---
Pt transferred to room 307 bed 2 at 1718. Report given to QIAN Beaulieu.
[2025-09-03] MEDS: ACETAMINOPHEN 325 MG TABLET 650 MG PO (17:41)
[2025-09-04] VITALS (7 sets, daily range): BP systolic 154–166; BP diastolic 50–57; PULSE 63–65; RESP 16–18; TEMP 36.1–37.1; O2SAT 95–97
[2025-09-04 05:22] LABS: Hematocrit 27.5 % (37.0-47.0); Hemoglobin 8.9 g/dL (12.0-15.0); Mean Corpuscular HGB Conc 32.4 g/dl (32-36); Mean Corpuscular Hemoglobin 32.0 pg (26-34); Mean Corpuscular Volume 98.9 fl (80-100); Platelet Count Result 185 k/mm3 (150-375); Red Blood Count 2.78 M/mm3 (4.2-5.4); White Blood Count 6.4 K/mm3 (4.5-10.0)
[2025-09-04 05:47] LABS: Alanine Aminotransferase 12 U/L (6-35); Albumin Level 3.1 g/dL (3.5-5.1); Alkaline Phosphatase 78 U/L (38-126); Anion Gap 6 mmol/L (4-12); Aspartate Amino Transferase 20 U/L (14-36); Bilirubin,Total 1.2 mg/dL (0.2-1.3); Blood Urea Nitrogen 44 mg/dL (7-17); Calcium 7.9 mg/dL (8.4-10.2); Carbon Dioxide 26 mmol/L (22-30); Chloride 104 mmol/L (98-107); Estimated CRCL calculation 24 ml/min; Estimated Glomerular Filt Rate 27; Glucose 98 mg/dL (65-110); Potassium 4.0 mmol/L (3.4-5.0); Sodium 136 mmol/L (137-145); Total Protein 6.3 g/dL (6.3-8.2)
[2025-09-04 05:52] LABS: Troponin I 0.085 ng/mL (0.000-0.034)
[2025-09-04] MEDS: HYDROcodone/acetaminophen (*CRX) 7.5-325 MG TABLET 1 TAB PO ×2 (09:01→20:44)
[2025-09-04] MEDS: CLOPIDOGREL BISULFATE 75 MG TABLET PO (09:01)
[2025-09-04] MEDS: LINEZOLID 600 MG TABLET PO ×2 (09:01→20:44)
[2025-09-04] MEDS: POTASSIUM CHLORIDE 20 MEQ ER TABLET PO (09:01)
[2025-09-04] MEDS: PANTOPRAZOLE 40 MG TABLET PO (09:02)
--- NOTE | 2025-09-04 09:02 | PM.PNCARD ---
Progress Note: A&P Assessment and Plan (1) Acute dyspnea: Code(s): R06.00 - Dyspnea, unspecified Status: Acute Assessment and Plan: Due to pneumonia likely. NTproBNP 10,200. Stopped Lasix 40 mg IV BID. Hold home dose of Lasix 40 mg PO daily, and resume when kidney function back to baseline Cr 1.3. No further cardiac workup is needed. Will sign off, please call with any questions. (2) Pneumonia: Qualifiers: Laterality: bilateral Lung location: lower lobe of lung Pneumonia type: due to unspecified organism Qualified Code(s): J18.9 - Pneumonia, unspecified organism Code(s): J18.9 - Pneumonia, unspecified organism Status: Acute Assessment and Plan: On antibiotics as per hospitalist. (3) Elevated troponin: Code(s): R79.89 - Other specified abnormal findings of blood chemistry Status: Acute Assessment and Plan: Moderately elevated and peaked at 0.212. Probably due to pneumonia. 09/03/25 Echo: EF 60-65%, E/e' 12 s/o mild diastolic dysfunction, mild LAE, mild MR, trace AI. (4) CAD (coronary artery disease): Qualifiers: Coronary Disease-Associated Artery/Lesion type: unspecified vessel or lesion type [place] vs. transplanted heart: [place] heart Associated angina: without angina Qualified Code(s): I25.10 - Atherosclerotic heart disease of [place] coronary artery without angina pectoris Code(s): I25.10 - Atherosclerotic heart disease of [place] coronary artery without angina pectoris Status: Acute Assessment and Plan: Stable. On Plavix as she does not tolerate aspirin causing upset stomach. (5) HTN (hypertension): Qualifiers: Hypertension type: unspecified Qualified Code(s): I10 - Essential (primary) hypertension Code(s): I10 - Essential (primary) hypertension Status: Acute Assessment and Plan: High. Resume home BP medication. Monitor. Start Hydralazine 25 mg BID. (6) Hyperlipidemia: Qualifiers: Hyperlipidemia type: unspecified Qualified Code(s): E78.5 - Hyperlipidemia, unspecified Code(s): E78.5 - Hyperlipidemia, unspecified Status: Acute Assessment and Plan: Intolerant of statins and Zetia due to myalgia. Subjective Date/time seen: 09/04/25 09:02 Interval history: Denies chest pain or sob. Exam Const: General: cooperative, healthy appearing and comfortable Orientation/consciousness: oriented to person, oriented to place and oriented to time Resp: Auscultation: crackles, no rhonchi and no wheezes Cardio: Rate: regular rate Rhythm: regular rhythm Heart sounds: no murmurs Peripheral pulses: dorsalis pedis present Neuro: General: oriented to person, oriented to place and oriented to time Extrem: Right lower extremity: no edema Left lower extremity: no edema Objective Data Vital Signs Vital Signs: Vital Signs - 24 hr 09/03/25 10:00 09/03/25 11:53 09/03/25 12:00 Temperature 98.7 F Pulse Rate 66 70 65 Respiratory Rate 16 Blood Pressure 155/51 H Pulse Oximetry 96 Oxygen Delivery Oxygen Flow Rate 09/03/25 12:00 09/03/25 14:00 09/03/25 16:00 Temperature 99.1 F Pulse Rate 63 69 Respiratory Rate 24 H Blood Pressure 151/56 H Pulse Oximetry 99 93 Oxygen Delivery Nasal Cannula Oxygen Flow Rate 2 09/03/25 17:35 09/03/25 17:41 09/03/25 18:41 Temperature 100.3 F H 100.3 F H 100.1 F H Pulse Rate 72 Respiratory Rate 16 Blood Pressure 163/54 H Pulse Oximetry 96 Oxygen Delivery Oxygen Flow Rate 09/03/25 20:12 09/03/25 21:18 09/04/25 05:50 Temperature 98.4 F 97.9 F Pulse Rate 72 66 63 Respiratory Rate 18 18 Blood Pressure 151/72 H 166/57 H Pulse Oximetry 96 97 Oxygen Delivery Oxygen Flow Rate 09/04/25 08:00 09/04/25 09:02 Temperature Pulse Rate 63 Respiratory Rate Blood Pressure Pulse Oximetry 97 Oxygen Delivery Nasal Cannula Oxygen Flow Rate 2 Intake/Output Intake/Output: Intake & Output 09/01/25 09/02/25 09/03/25 09/04/25 23:59 23:59 23:59 23:59 Intake Total 1600 150 Output Total 1900 Balance -300 150 Meds/Results Medications: Active Medications Generic Name Dose Route Start Last Admin Trade Name Freq PRN Reason Stop Dose Admin Acetaminophen 650 mg 09/03/25 00:43 09/03/25 17:41 Acetaminophen 325 Mg Tablet PO 650 mg Q4H PRN Administration Mild Pain (1-3) or Fever Hydrocodone Bitart/Acetaminophen 1 tab 09/03/25 09:00 09/04/25 09:01 Hydrocodone/Acetaminophen (*Crx) 7.5-325 Mg Tablet PO 1 tab Q12HR VIELKA Administration Amlodipine Besylate 10 mg 09/03/25 09:00 09/04/25 09:02 Amlodipine Besylate 10 Mg Tablet PO 10 mg DAILY VIELKA Administration Atenolol 50 mg 09/03/25 09:00 09/04/25 09:02 Atenolol 50 Mg Tablet PO 50 mg QAM VIELKA Administration Atenolol 100 mg 09/03/25 21:00 09/03/25 20:12 Atenolol 50 Mg Tablet PO 100 mg QHS VIELKA Administration Clopidogrel Bisulfate 75 mg 09/03/25 09:00 09/04/25 09:01 Clopidogrel Bisulfate 75 Mg Tablet PO 75 mg DAILY VIELKA Administration Dextrose 12.5 gm 09/03/25 00:49 Dextrose 50% 25 Gm/50 Ml Syringe IV PUSH PRN PRN Hypoglycemia Protocol Diazepam 5 mg 09/03/25 05:54 Diazepam (*Crx) 5 Mg Tablet PO DAILY PRN Anxiety Furosemide 40 mg 09/04/25 09:00 Furosemide 40 Mg Tablet PO On Hold: 09/04/25 09:00 DAILY VIELKA Glucagon 1 mg 09/03/25 00:49 Glucagon For Inj 1 Mg Vial IM PRN PRN Hypoglycemia Protocol Glucose 15 gm 09/03/25 00:49 Glucose Oral Gel 15 Gm Of Glucse In 37.5 Gm Tube PO PRN PRN Hypoglycemia Protocol Heparin Sodium (Porcine) 5,000 units 09/03/25 09:00 09/04/25 09:01 Heparin Sodium 5,000 Units/Ml Vial SUB-Q 5,000 units Q12HR VIELKA Administration Hydralazine HCl 25 mg 09/04/25 09:00 09/04/25 09:02 Hydralazine Hcl 25 Mg Tablet PO 25 mg Q12HR VIELKA Administration Hydrochlorothiazide 12.5 mg 09/03/25 09:00 09/04/25 09:01 Hydrochlorothiazide 12.5 Mg Capsule PO 12.5 mg QAM VIELKA Administration Aztreonam 2 gm/ Sodium 100 mls @ 200 mls/hr 09/03/25 08:00 09/04/25 00:48 Chloride IVPB Infused Q8H VIELKA Infusion Dextrose 1,000 mls @ 100 mls/hr 09/03/25 00:49 Dextrose 5% 1,000 Ml IVPB PRN PRN Hypoglycemia Protocol Lidocaine 1 patch 09/03/25 05:54 Lidocaine 5% Patch TOPICAL DAILY PRN Pain Linezolid 600 mg 09/03/25 09:00 09/04/25 09:01 Linezolid 600 Mg Tablet PO 09/05/25 09:00 600 mg Q12HR VIELKA Administration Lisinopril 20 mg 09/03/25 09:00 09/04/25 09:01 Lisinopril 20 Mg Tablet PO 20 mg QAM VIELKA Administration Nitroglycerin 0.4 mg 09/03/25 05:58 Nitroglycerin Sl 0.4 Mg Tablet SUBLINGUAL Q5M PRN Angina Ondansetron HCl 4 mg 09/03/25 00:43 Ondansetron Inj 4 Mg/2 Ml Vial IV PUSH Q4H PRN Nausea Pantoprazole Sodium 40 mg 09/03/25 09:00 09/04/25 09:02 Pantoprazole 40 Mg Tablet PO 40 mg QAM VIELKA Administration Perflutren Lipid Microsphere 0 ml 09/03/25 07:43 Perflutren Lipid Microspheres 1.5 Ml Vial Diluted To 10 Ml Total Volume IV PUSH 09/06/25 07:43 ONCE PRN adequate visualization Protocol Potassium Chloride 20 meq 09/03/25 09:00 09/04/25 09:01 Potassium Chloride 20 Meq Er Tablet PO 20 meq DAILY VIELKA Administration Psyllium Hydrophilic Mucilloid 1 packet 09/03/25 09:00 09/04/25 09:01 Psyllium Sugar Free Powder Packet PO 1 packet DAILY VIELKA Administration Radiology Results: ITS Impressions Chest X-Ray 09/02/25 20:22 IMPRESSION: Patchy bilateral lower lobe opacities may represent pulmonary edema. [ ] Chest CTA 09/03/25 08:41 IMPRESSION: 1. No pulmonary embolus. Sensitivity is moderately decreased by motion artifact. 2. Diffuse lung disease, consistent with pulmonary edema and/or pneumonia. 3. Small pleural effusions. Labs Labs: Laboratory Results - last 24 hr 09/04/25 05:16 WBC 6.4 RBC 2.78 L Hgb 8.9 L Hct 27.5 L MCV 98.9 MCH 32.0 MCHC 32.4 RDW 13.1 Plt Count 185 MPV 10.6 H Sodium 136 L Potassium 4.0 Chloride 104 Carbon Dioxide 26 Anion Gap 6 BUN 44 H D Creatinine 1.81 H Estim Creat Clear Calc 24 Estimated GFR 27 L Glucose 98 Calcium 7.9 L Total Bilirubin 1.2 AST 20 ALT 12 Alkaline Phosphatase 78 Troponin I 0.085 H* Total Protein 6.3 Albumin 3.1 L
[2025-09-04] MEDS: AZTREONAM 2 GM in SODIUM CHLORIDE 0.9% IV 100 ML IVPB ×3 (09:06→23:31)
[2025-09-04 09:32] LABS: Magnesium 2.7 mg/dL (1.6-2.3)
--- NOTE | 2025-09-04 12:50 | P.PNIM_ITS ---
Progress Note: A&P Assessment and Plan (1) Acute hypoxic respiratory failure: Code(s): J96.01 - Acute respiratory failure with hypoxia Status: Acute Assessment and Plan: Chest x-ray shows patchy bilateral lower lobe opacities may represent pulmonary edema Chest CT pending Patient met sepsis criteria with leukocytosis and mild tachypnea Due to CHF recommend gentle fluid resuscitation Continue aztreonam Continue linezolid Continue Lasix Quad screen negative Baseline room air Currently on 2 L Nasal MRSA negative (2) Acute exacerbation of CHF (congestive heart failure): Qualifiers: Heart failure type: diastolic Qualified Code(s): I50.33 - Acute on chronic diastolic (congestive) heart failure Code(s): I50.9 - Heart failure, unspecified Status: Acute Assessment and Plan: Echocardiogram pending Prior echocardiogram from 2022 demonstrating diastolic dysfunction Elevated troponin BNP 10,200 strict I&O's and daily weights Possible demand ischemia History of 3 cardiac stents Continue lisinopril hydrochlorothiazide, atenolol and Norvasc (3) Pneumonia: Qualifiers: Laterality: bilateral Lung location: lower lobe of lung Pneumonia type: due to unspecified organism Qualified Code(s): J18.9 - Pneumonia, unspecified organism Code(s): J18.9 - Pneumonia, unspecified organism Status: Acute Assessment and Plan: Same as above (4) Bilateral pleural effusion: Code(s): J90 - Pleural effusion, not elsewhere classified Status: Acute Assessment and Plan: Pending CT results Lasix 40 mg IV b.i.d. (5) Elevated troponin: Code(s): R79.89 - Other specified abnormal findings of blood chemistry Status: Acute Assessment and Plan: Possible demand ischemia Cardiology consulted and appreciate recommendations (6) Anxiety: Code(s): F41.9 - Anxiety disorder, unspecified Status: Acute Assessment and Plan: After evaluation will consider BuSpar Diazepam 5 mg p.r.n. anxiety home medications Plan 85 y/o female presented with acute dyspnea seen by the buffet runner and suspect 2/2 multifactors with pneumonia and CHF with elevated BNP of 10,200, patient is being treated with Aztreonam, zithromax and Zyvox. and being diuresed with IV lasix, patient clinical symptoms are improving as patient was able to ambulate in the hallways without any difficulty and will repeat chest x-ray to further evaluate pneumonia. patient remains clinically stable. Subjective Date/time seen: 09/04/25 12:50 Interval history: 85 y/o female presented with acute dyspnea seen by the buffet runner and suspect 2/2 multifactors with pneumonia and CHF with elevated BNP of 10,200, patient is being treated with Aztreonam, zithromax and Zyvox. and being diuresed with IV lasix, patient clinical symptoms are improving as patient was able to ambulate in the hallways without any difficulty and will repeat chest x-ray to further evaluate pneumonia. patient remains clinically stable. Review of Systems Review of Systems: 12 systems were reviewed with pertinent positives and negatives per HPI. Except as documented in the HPI, all other systems were reviewed and are negative. She has chronic alopecia and wears a wig. She has upper and lower dentures in place. She has chronic knee pain and states that she needs knee replacement surgery but she is not a candidate. She has scars of the right knee due to prior trauma and ORIF. Exam Narrative: Morbidly obese Patient is comfortable, NAD HEENT: eyes are clear and none icteric LUNGS:CTA HEART: RR S1S2 ABD: BS+, Soft and nontender Lower extremities: no edema SKIN: nonjaundiced Neuro: grossly intact. Objective Data Vital Signs Vital Signs: Vital Signs - 24 hr 09/03/25 14:00 09/03/25 16:00 09/03/25 17:35 Temperature 37.3 C 37.9 C H Pulse Rate 63 69 72 Respiratory Rate 24 H 16 Blood Pressure 151/56 H 163/54 H Pulse Oximetry 93 96 Oxygen Delivery Oxygen Flow Rate 09/03/25 17:41 09/03/25 18:41 09/03/25 20:12 Temperature 37.9 C H 37.8 C H Pulse Rate 72 Respiratory Rate Blood Pressure Pulse Oximetry Oxygen Delivery Oxygen Flow Rate 09/03/25 21:18 09/04/25 05:50 09/04/25 08:00 Temperature 36.9 C 36.6 C Pulse Rate 66 63 Respiratory Rate 18 18 Blood Pressure 151/72 H 166/57 H Pulse Oximetry 96 97 97 Oxygen Delivery Nasal Cannula Oxygen Flow Rate 2 09/04/25 09:02 09/04/25 09:59 Temperature Pulse Rate 63 Respiratory Rate Blood Pressure Pulse Oximetry Oxygen Delivery Nasal Cannula Oxygen Flow Rate 2 Intake/Output Intake/Output: Intake & Output 09/01/25 09/02/25 09/03/25 09/04/25 23:59 23:59 23:59 23:59 Intake Total 1600 250 Output Total 1900 Balance -300 250 Meds/Results Medications: Active Medications Generic Name Dose Route Start Last Admin Trade Name Nura PRN Reason Stop Dose Admin Acetaminophen 650 mg 09/03/25 00:43 09/03/25 17:41 Acetaminophen 325 Mg Tablet PO 650 mg Q4H PRN Administration Mild Pain (1-3) or Fever Hydrocodone Bitart/Acetaminophen 1 tab 09/03/25 09:00 09/04/25 09:01 Hydrocodone/Acetaminophen (*Crx) 7.5-325 Mg Tablet PO 1 tab Q12HR VIELKA Administration Amlodipine Besylate 10 mg 09/03/25 09:00 09/04/25 09:02 Amlodipine Besylate 10 Mg Tablet PO 10 mg DAILY VIELKA Administration Atenolol 50 mg 09/03/25 09:00 09/04/25 09:02 Atenolol 50 Mg Tablet PO 50 mg QAM VIELKA Administration Atenolol 100 mg 09/03/25 21:00 09/03/25 20:12 Atenolol 50 Mg Tablet PO 100 mg QHS VIELKA Administration Clopidogrel Bisulfate 75 mg 09/03/25 09:00 09/04/25 09:01 Clopidogrel Bisulfate 75 Mg Tablet PO 75 mg DAILY VIELKA Administration Dextrose 12.5 gm 09/03/25 00:49 Dextrose 50% 25 Gm/50 Ml Syringe IV PUSH PRN PRN Hypoglycemia Protocol Diazepam 5 mg 09/03/25 05:54 Diazepam (*Crx) 5 Mg Tablet PO DAILY PRN Anxiety Furosemide 40 mg 09/04/25 09:00 Furosemide 40 Mg Tablet PO On Hold: 09/04/25 09:00 DAILY VIELKA Glucagon 1 mg 09/03/25 00:49 Glucagon For Inj 1 Mg Vial IM PRN PRN Hypoglycemia Protocol Glucose 15 gm 09/03/25 00:49 Glucose Oral Gel 15 Gm Of Glucse In 37.5 Gm Tube PO PRN PRN Hypoglycemia Protocol Heparin Sodium (Porcine) 5,000 units 09/03/25 09:00 09/04/25 09:01 Heparin Sodium 5,000 Units/Ml Vial SUB-Q 5,000 units Q12HR VIELKA Administration Hydralazine HCl 25 mg 09/04/25 09:00 09/04/25 09:02 Hydralazine Hcl 25 Mg Tablet PO 25 mg Q12HR VIELKA Administration Hydrochlorothiazide 12.5 mg 09/03/25 09:00 09/04/25 09:01 Hydrochlorothiazide 12.5 Mg Capsule PO 12.5 mg QAM VIELKA Administration Aztreonam 2 gm/ Sodium 100 mls @ 200 mls/hr 09/03/25 08:00 09/04/25 10:06 Chloride IVPB Infused Q8H VIELKA Infusion Dextrose 1,000 mls @ 100 mls/hr 09/03/25 00:49 Dextrose 5% 1,000 Ml IVPB PRN PRN Hypoglycemia Protocol Lidocaine 1 patch 09/03/25 05:54 Lidocaine 5% Patch TOPICAL DAILY PRN Pain Linezolid 600 mg 09/03/25 09:00 09/04/25 09:01 Linezolid 600 Mg Tablet PO 09/05/25 09:00 600 mg Q12HR VIELKA Administration Lisinopril 20 mg 09/03/25 09:00 09/04/25 09:01 Lisinopril 20 Mg Tablet PO 20 mg QAM VIELKA Administration Nitroglycerin 0.4 mg 09/03/25 05:58 Nitroglycerin Sl 0.4 Mg Tablet SUBLINGUAL Q5M PRN Angina Ondansetron HCl 4 mg 09/03/25 00:43 Ondansetron Inj 4 Mg/2 Ml Vial IV PUSH Q4H PRN Nausea Pantoprazole Sodium 40 mg 09/03/25 09:00 09/04/25 09:02 Pantoprazole 40 Mg Tablet PO 40 mg QAM VIELKA Administration Perflutren Lipid Microsphere 0 ml 09/03/25 07:43 Perflutren Lipid Microspheres 1.5 Ml Vial Diluted To 10 Ml Total Volume IV PUSH 09/06/25 07:43 ONCE PRN adequate visualization Protocol Potassium Chloride 20 meq 09/03/25 09:00 09/04/25 09:01 Potassium Chloride 20 Meq Er Tablet PO 20 meq DAILY VIELKA Administration Psyllium Hydrophilic Mucilloid 1 packet 09/03/25 09:00 09/04/25 09:26 Psyllium Sugar Free Powder Packet PO Not Given DAILY VIELKA Radiology Results: ITS Impressions Chest X-Ray 09/02/25 20:22 IMPRESSION: Patchy bilateral lower lobe opacities may represent pulmonary edema. [ ] Chest CTA 09/03/25 08:41 IMPRESSION: 1. No pulmonary embolus. Sensitivity is moderately decreased by motion artifact. 2. Diffuse lung disease, consistent with pulmonary edema and/or pneumonia. 3. Small pleural effusions. Labs Labs: Laboratory Results - last 24 hr 09/04/25 05:16 WBC 6.4 RBC 2.78 L Hgb 8.9 L Hct 27.5 L MCV 98.9 MCH 32.0 MCHC 32.4 RDW 13.1 Plt Count 185 MPV 10.6 H Sodium 136 L Potassium 4.0 Chloride 104 Carbon Dioxide 26 Anion Gap 6 BUN 44 H D Creatinine 1.81 H Estim Creat Clear Calc 24 Estimated GFR 27 L Glucose 98 Calcium 7.9 L Magnesium 2.7 H Total Bilirubin 1.2 AST 20 ALT 12 Alkaline Phosphatase 78 Troponin I 0.085 H* Total Protein 6.3 Albumin 3.1 L Quality VTE Prophylaxis VTE prophylaxis: pharmacologic ordered (Heparin 5000 units subQ q.12 hours)
[2025-09-05] VITALS (11 sets, daily range): BP systolic 146–158; BP diastolic 55–77; PULSE 63–88; RESP 14–20; TEMP 36.9–37.8; O2SAT 95–97
[2025-09-05 05:51] LABS: Hematocrit 28.7 % (37.0-47.0); Hemoglobin 8.9 g/dL (12.0-15.0); Mean Corpuscular HGB Conc 31.0 g/dl (32-36); Mean Corpuscular Hemoglobin 30.9 pg (26-34); Mean Corpuscular Volume 99.7 fl (80-100); Platelet Count Result 210 k/mm3 (150-375); Red Blood Count 2.88 M/mm3 (4.2-5.4); White Blood Count 7.5 K/mm3 (4.5-10.0)
[2025-09-05 06:31] LABS: Anion Gap 5 mmol/L (4-12); Blood Urea Nitrogen 57 mg/dL (7-17); Calcium 7.8 mg/dL (8.4-10.2); Carbon Dioxide 26 mmol/L (22-30); Chloride 103 mmol/L (98-107); Estimated CRCL calculation 19 ml/min; Estimated Glomerular Filt Rate 20; Glucose 87 mg/dL (65-110); Magnesium 2.5 mg/dL (1.6-2.3); Potassium 4.4 mmol/L (3.4-5.0); Sodium 134 mmol/L (137-145)
[2025-09-05] MEDS: POTASSIUM CHLORIDE 20 MEQ ER TABLET PO (07:58)
[2025-09-05] MEDS: PANTOPRAZOLE 40 MG TABLET PO (07:59)
[2025-09-05] MEDS: CLOPIDOGREL BISULFATE 75 MG TABLET PO (07:59)
[2025-09-05] MEDS: HYDROcodone/acetaminophen (*CRX) 7.5-325 MG TABLET 1 TAB PO ×2 (07:59→21:51)
[2025-09-05] MEDS: LINEZOLID 600 MG TABLET PO (07:59)
[2025-09-05] MEDS: AZTREONAM 2 GM in SODIUM CHLORIDE 0.9% IV 100 ML IVPB ×2 (08:00→21:52)
[2025-09-05] MEDS: guaiFENesin 12 HR 600 MG TABCR PO ×2 (11:55→21:51)
[2025-09-05] MEDS: DOXYCYCLINE IV 100 MG in SODIUM CHLORIDE 0.9% IV 100 ML IVPB (14:10)
[2025-09-05] MEDS: IPRATROPIUM 0.5 MG/ALBUTEROL SULFATE 2.5 MG (BASE) AMPUL.NEB 3 ML INHALATION ×2 (14:28→20:21)
--- NOTE | 2025-09-05 15:28 | PCPTNOTE ---
The patient treatment was not able to be completed on 09/05/2025 due to increase fatigue and shortness of breath and patient unable to participate with PT. Will plan to continue treatment per plan of care.
--- NOTE | 2025-09-05 16:29 | P.PNIM_ITS ---
Progress Note: A&P Assessment and Plan (1) Acute hypoxic respiratory failure: Code(s): J96.01 - Acute respiratory failure with hypoxia Status: Acute Assessment and Plan: Chest x-ray shows patchy bilateral lower lobe opacities may represent pulmonary edema Chest CT pending Patient met sepsis criteria with leukocytosis and mild tachypnea Due to CHF recommend gentle fluid resuscitation Continue aztreonam Continue linezolid Continue Lasix Quad screen negative Baseline room air Currently on 2 L Nasal MRSA negative (2) Acute exacerbation of CHF (congestive heart failure): Qualifiers: Heart failure type: diastolic Qualified Code(s): I50.33 - Acute on chronic diastolic (congestive) heart failure Code(s): I50.9 - Heart failure, unspecified Status: Acute Assessment and Plan: Echocardiogram pending Prior echocardiogram from 2022 demonstrating diastolic dysfunction Elevated troponin BNP 10,200 strict I&O's and daily weights Possible demand ischemia History of 3 cardiac stents Continue lisinopril hydrochlorothiazide, atenolol and Norvasc (3) Pneumonia: Qualifiers: Laterality: bilateral Lung location: lower lobe of lung Pneumonia type: due to unspecified organism Qualified Code(s): J18.9 - Pneumonia, unspecified organism Code(s): J18.9 - Pneumonia, unspecified organism Status: Acute Assessment and Plan: Same as above (4) Bilateral pleural effusion: Code(s): J90 - Pleural effusion, not elsewhere classified Status: Acute Assessment and Plan: Pending CT results Lasix 40 mg IV b.i.d. (5) Elevated troponin: Code(s): R79.89 - Other specified abnormal findings of blood chemistry Status: Acute Assessment and Plan: Possible demand ischemia Cardiology consulted and appreciate recommendations (6) Anxiety: Code(s): F41.9 - Anxiety disorder, unspecified Status: Acute Assessment and Plan: After evaluation will consider BuSpar Diazepam 5 mg p.r.n. anxiety home medications Plan 85 y/o female presented with acute dyspnea seen by the director of assessing and suspect 2/2 multifactors with pneumonia and CHF with elevated BNP of 10,200, patient is being treated with Aztreonam, zithromax and Zyvox. and being diuresed with IV lasix, patient clinical symptoms are improving as patient was able to ambulate in the hallways without any difficulty and will repeat chest x-ray to further evaluate pneumonia. patient remains clinically stable. today patient stats she feels tired and her legs hurting and does not want walk, patient is wheezing and Scr is rising and currently not on Lasix, to further evaluate CXR was done which did not show any acute cardiopulmonary findings given portable technique. will continue to monitor, if her Scr does not improve, will consult tube draw helper for further recommendations. will give guaifenesin and duo neb, will monitor. Subjective Date/time seen: 09/05/25 16:29 Interval history: 85 y/o female presented with acute dyspnea seen by the director of assessing and suspect 2/2 multifactors with pneumonia and CHF with elevated BNP of 10,200, patient is being treated with Aztreonam, zithromax and Zyvox. and being diuresed with IV lasix, patient clinical symptoms are improving as patient was able to ambulate in the hallways without any difficulty and will repeat chest x-ray to further evaluate pneumonia. patient remains clinically stable. today patient stats she feels tired and her legs hurting and does not want walk, patient is wheezing and Scr is rising and currently not on Lasix, to further evaluate CXR was done which did not show any acute cardiopulmonary findings given portable technique. will continue to monitor, if her Scr does not improve, will consult tube draw helper for further recommendations. will give guaifenesin and duo neb, will monitor. Review of Systems Review of Systems: 12 systems were reviewed with pertinent positives and negatives per HPI. Except as documented in the HPI, all other systems were reviewed and are negative. She has chronic alopecia and wears a wig. She has upper and lower dentures in place. She has chronic knee pain and states that she needs knee replacement surgery but she is not a candidate. She has scars of the right knee due to prior trauma and ORIF. Exam Narrative: Morbidly obese Patient is comfortable, NAD HEENT: eyes are clear and none icteric LUNGS:CTA HEART: RR S1S2 ABD: BS+, Soft and nontender Lower extremities: no edema SKIN: nonjaundiced Neuro: grossly intact. Objective Data Vital Signs Vital Signs: Vital Signs - 24 hr 09/04/25 20:00 09/04/25 21:09 09/04/25 21:38 Temperature 37.1 C Pulse Rate 65 65 Respiratory Rate 16 16 Blood Pressure 154/51 H Pulse Oximetry 97 95 97 Oxygen Delivery Nasal Cannula Oxygen Flow Rate 2 2 09/05/25 06:00 09/05/25 07:59 09/05/25 08:21 Temperature 37.0 C Pulse Rate 65 88 Respiratory Rate 18 Blood Pressure 158/55 H Pulse Oximetry 96 Oxygen Delivery Nasal Cannula Oxygen Flow Rate 2 09/05/25 14:00 09/05/25 14:29 09/05/25 14:35 Temperature 36.9 C Pulse Rate 70 66 65 Respiratory Rate 14 20 20 Blood Pressure 151/77 H Pulse Oximetry 95 Oxygen Delivery Oxygen Flow Rate Intake/Output Intake/Output: Intake & Output 09/02/25 09/03/25 09/04/25 09/05/25 23:59 23:59 23:59 23:59 Intake Total 1600 707 100 Output Total 1900 300 Balance -300 407 100 Meds/Results Medications: Active Medications Generic Name Dose Route Start Last Admin Trade Name Freq PRN Reason Stop Dose Admin Acetaminophen 650 mg 09/03/25 00:43 09/03/25 17:41 Acetaminophen 325 Mg Tablet PO 650 mg Q4H PRN Administration Mild Pain (1-3) or Fever Hydrocodone Bitart/Acetaminophen 1 tab 09/03/25 09:00 09/05/25 07:59 Hydrocodone/Acetaminophen (*Crx) 7.5-325 Mg Tablet PO 1 tab Q12HR VIELKA Administration Albuterol/Ipratropium 3 ml 09/05/25 14:00 09/05/25 14:28 Ipratropium 0.5 Mg/Albuterol Sulfate 2.5 Mg (Base) Ampul.Neb 3 Ml INHALATION 3 ml Q6HRT VIELKA Administration Amlodipine Besylate 10 mg 09/03/25 09:00 09/05/25 07:59 Amlodipine Besylate 10 Mg Tablet PO 10 mg DAILY VIELKA Administration Atenolol 50 mg 09/03/25 09:00 09/05/25 07:59 Atenolol 50 Mg Tablet PO 50 mg QAM VIELKA Administration Atenolol 100 mg 09/03/25 21:00 09/04/25 20:44 Atenolol 50 Mg Tablet PO 100 mg QHS VIELKA Administration Clopidogrel Bisulfate 75 mg 09/03/25 09:00 09/05/25 07:59 Clopidogrel Bisulfate 75 Mg Tablet PO 75 mg DAILY VIELKA Administration Dextrose 12.5 gm 09/03/25 00:49 Dextrose 50% 25 Gm/50 Ml Syringe IV PUSH PRN PRN Hypoglycemia Protocol Diazepam 5 mg 09/03/25 05:54 Diazepam (*Crx) 5 Mg Tablet PO DAILY PRN Anxiety Furosemide 40 mg 09/04/25 09:00 Furosemide 40 Mg Tablet PO On Hold: 09/04/25 09:00 DAILY VIELKA Glucagon 1 mg 09/03/25 00:49 Glucagon For Inj 1 Mg Vial IM PRN PRN Hypoglycemia Protocol Glucose 15 gm 09/03/25 00:49 Glucose Oral Gel 15 Gm Of Glucse In 37.5 Gm Tube PO PRN PRN Hypoglycemia Protocol Guaifenesin 600 mg 09/05/25 11:00 09/05/25 11:55 Guaifenesin 12 Hr 600 Mg Tabcr PO 600 mg Q12HR VIELKA Administration Heparin Sodium (Porcine) 5,000 units 09/03/25 09:00 09/05/25 07:58 Heparin Sodium 5,000 Units/Ml Vial SUB-Q 5,000 units Q12HR VIELKA Administration Hydralazine HCl 25 mg 09/04/25 09:00 09/05/25 07:59 Hydralazine Hcl 25 Mg Tablet PO 25 mg Q12HR VIELKA Administration Hydrochlorothiazide 12.5 mg 09/03/25 09:00 09/05/25 07:59 Hydrochlorothiazide 12.5 Mg Capsule PO 12.5 mg QAM VIELKA Administration Dextrose 1,000 mls @ 100 mls/hr 09/03/25 00:49 Dextrose 5% 1,000 Ml IVPB PRN PRN Hypoglycemia Protocol Aztreonam 2 gm/ Sodium 100 mls @ 200 mls/hr 09/05/25 21:00 Chloride IVPB Q12HR VIELKA Doxycycline Hyclate 100 mg/ 100 mls @ 100 mls/hr 09/05/25 14:00 09/05/25 14:10 Sodium Chloride IVPB 09/12/25 02:59 100 mls/hr Q12H VIELKA Administration Lidocaine 1 patch 09/03/25 05:54 Lidocaine 5% Patch TOPICAL DAILY PRN Pain Lisinopril 20 mg 09/03/25 09:00 09/05/25 07:59 Lisinopril 20 Mg Tablet PO 20 mg QAM VIELKA Administration Nitroglycerin 0.4 mg 09/03/25 05:58 Nitroglycerin Sl 0.4 Mg Tablet SUBLINGUAL Q5M PRN Angina Ondansetron HCl 4 mg 09/03/25 00:43 Ondansetron Inj 4 Mg/2 Ml Vial IV PUSH Q4H PRN Nausea Pantoprazole Sodium 40 mg 09/03/25 09:00 09/05/25 07:59 Pantoprazole 40 Mg Tablet PO 40 mg QAM VIELKA Administration Perflutren Lipid Microsphere 0 ml 09/03/25 07:43 Perflutren Lipid Microspheres 1.5 Ml Vial Diluted To 10 Ml Total Volume IV PUSH 09/06/25 07:43 ONCE PRN adequate visualization Protocol Potassium Chloride 20 meq 09/03/25 09:00 09/05/25 07:58 Potassium Chloride 20 Meq Er Tablet PO 20 meq DAILY VIELKA Administration Psyllium Hydrophilic Mucilloid 1 packet 09/03/25 09:00 09/05/25 08:07 Psyllium Sugar Free Powder Packet PO Not Given DAILY [facility] Radiology Results: ITS Impressions Chest CTA 09/03/25 08:41 IMPRESSION: 1. No pulmonary embolus. Sensitivity is moderately decreased by motion artifact. 2. Diffuse lung disease, consistent with pulmonary edema and/or pneumonia. 3. Small pleural effusions. Chest X-Ray 09/05/25 14:53 IMPRESSION: 1. No acute cardiopulmonary findings given portable technique. Labs Labs: Laboratory Results - last 24 hr 09/05/25 05:03 WBC 7.5 RBC 2.88 L Hgb 8.9 L Hct 28.7 L MCV 99.7 MCH 30.9 MCHC 31.0 L RDW 13.2 Plt Count 210 MPV 11.2 H Sodium 134 L Potassium 4.4 Chloride 103 Carbon Dioxide 26 Anion Gap 5 BUN 57 H D Creatinine 2.31 H Estim Creat Clear Calc 19 Estimated GFR 20 L Glucose 87 Calcium 7.8 L Magnesium 2.5 H Quality VTE Prophylaxis VTE prophylaxis: pharmacologic ordered (Heparin 5000 units subQ q.12 hours)
--- NOTE | 2025-09-05 19:24 | WPDIDCN ---
Assessment and Plan Assessment and plan (1) Pneumonia: Qualifiers: Laterality: bilateral Lung location: lower lobe of lung Pneumonia type: due to unspecified organism Qualified Code(s): J18.9 - Pneumonia, unspecified organism Code(s): J18.9 - Pneumonia, unspecified organism Status: Acute Assessment and Plan: 1. acute respiratory failure 2. pneumonia in assisted living facility; MRSA nares neg 3. heart failure 4. former smoker, baseline on no o2 5. CAD 6. CKD 7. HTN 8. anaphylaxis to azithromycin, erythromycin, sulfa 9. rash to levaquin 10.SOB with cephalosporins RECOMMENDAITONS: continue aztreonam (day3) add doxycycline IV blood cxs NGTD CXR now without infiltrate wean o2 as able d/w pharmacy staff Pt was seen via video telehealth consultation with the assistance of staff. Chart, data, and patient info independently reviewed. Pt was located at [facility] while I was located in my [place] office. Received verbal consent from patient. (2) Acute exacerbation of CHF (congestive heart failure): Qualifiers: Heart failure type: diastolic Qualified Code(s): I50.33 - Acute on chronic diastolic (congestive) heart failure Code(s): I50.9 - Heart failure, unspecified Status: Acute (3) Acute hypoxic respiratory failure: Code(s): J96.01 - Acute respiratory failure with hypoxia Status: Acute HPI Data of Consult Date/Time: 09/05/25 19:24 Requesting Physician: Maryellen Hamilton DO Primary Care Provider: Katarzyna Hood, SEROLOGY TEACHER Consult Narrative Reason for consult: possible pneumonia Narrative: Ofelia Monzon is a 85 year old female with pmhx/o HTN, CAD, heart failure, CKD, multiple antibiotic drug allergies, former smoker, presented to hospital from assisted living for SOB, hypoxia. CT imaging with edema/pneumonia. On aztreonam. MRSA nares neg. Usually on no oxygen. Now on 2L o2 NC. States SOB better. Had fever but now afebrile. Currently no leukocytosis. No nausea or emesis. [facility] Past Medical History Medical History (Updated 09/03/25 @ 14:57 by Rivera Ortega DO) Chronic right shoulder pain Back pain Osteopenia Statin intolerance Vitamin D deficiency Shingles Compression fracture of lumbar spine, non-traumatic Bilateral knee pain Myocardial infarction GERD without esophagitis Anxiety Paranoia (psychosis) Hyperlipidemia Chronic back pain Adult failure to thrive General weakness Fracture lt shoulder Arthritis rt shoulder, back Chronic lower back pain HTN (hypertension) Surgical History Surgical History Hx of shoulder surgery (~2013) lt shoulder replacement H/O right knee surgery (~1988) ORIF H/O: hysterectomy (~1978) Hx of cholecystectomy (~1992) Hx of appendectomy (~1978) Hx of heart artery stent (~2010) x3 Hx of cataract surgery (~1992) bilateral Family History Family History Mother Cerebrovascular accident, Onset Age: 77 Patient's mother is Family history of coronary artery disease Family history of osteoarthritis Family history of congestive heart failure Father Family history of lung cancer Patient's father is Family history of malignant neoplasm Grandparent Cerebrovascular accident Family history of heart disease in male family member before age 55 Social History Social History (Updated 09/03/25 @ 07:37 by Maryellen Hamilton DO) Social History: The patient's same-sex partner of 35 year (2018), she moved to [facility] in 2020. She has no children. She has has a power of collections attorney (Mo Pelletier) who is an collections attorney and a family friend. She said she used to smoke but quit in the 1980s. No alcohol or illicit drugs. Code status: DNR/DNI (she states that if she were unable to speak or had a stroke she would not want any aggressive care she would want to be made comfort measures. She would be okay with medications for blood pressure support but would not want any invasive respiratory support or cardiac support) Surrogate decision maker: Issa Griffith (friend) Smoking packs per day: 1 Smoking cigarettes per day: 20.0 Years smoked: 35 Smoking pack-years: 35.00 Smoking status: Former smoker Tobacco type: cigarettes Second hand tobacco smoke exposure: No Smoking end date: 07/11/80 Alcohol intake: never Substance use: never Substance use type: does not use Do You Feel Safe in your Home?: No Lack of Transportation: No Lack of Food: Never True Current Housing: I Have Housing Concerned About Future Housing: No Difficulty Paying Gas/Electric Bills: No Difficulty Paying for Meds: No Currently Unemployed: No Education: High School Diploma/GED Difficulty w/ Childcare or Family Care: No Living arrangements: assisted living Occupation/Education: retired Gender identity (if verbalized by the patient): Female Spiritual care concerns: No Agree to blood products: Yes Meds Home Medications and Allergies Home Medications ?Medication ?Instructions ?Recorded ?Confirmed ?Type pantoprazole 40 mg tablet,delayed 40 mg PO QAM 09/16/19 09/03/25 History release (Protonix) acetaminophen 325 mg tablet (Mapap 650 mg (2 x 325 mg) PO Q4H PRN 12/04/19 09/03/25 Rx (acetaminophen)) Mild Pain (1-3) Or Fever #30 tabs amlodipine 10 mg tablet 10 mg PO DAILY 05/28/21 09/03/25 History clopidogrel 75 mg tablet 75 mg PO DAILY #90 tabs 08/20/21 09/03/25 Rx lisinopril 20 1 tablet PO DAILY #90 tabs 10/01/21 09/03/25 Rx mg-hydrochlorothiazide 12.5 mg tablet furosemide 20 mg tablet 20 mg PO QAM PRN edema #30 tabs 02/28/23 09/03/25 Rx atenolol 100 mg tablet 50 mg PO QAM 07/05/23 09/03/25 History atenolol 100 mg tablet 100 mg PO QPM 07/05/23 09/03/25 History furosemide 40 mg tablet (Lasix) 40 mg PO QAM #90 tabs 09/08/23 09/03/25 Rx nitroglycerin 0.4 mg sublingual 0.4 mg sublingual Q5M PRN Angina 07/20/24 09/03/25 Rx tablet #30 tabs diazepam 5 mg tablet 5 mg PO DAILY PRN anxiety #90 tabs 11/26/24 09/03/25 Rx hydrocodone 7.5 mg-acetaminophen 1 tablet PO Q12H 09/03/25 09/03/25 History 325 mg tablet lidocaine 5 % topical patch 1 patch topical DAILY PRN pain 09/03/25 09/03/25 History loperamide 2 mg capsule (Imodium 2 mg PO .COMPLEX PRN loose stool 09/03/25 09/03/25 History A-D) potassium chloride 10 mEq 20 meq PO DAILY 09/03/25 09/03/25 History tablet,extended release (Klor-Con) psyllium husk 3.4 gram oral powder 3.4 g PO DAILY 09/03/25 09/03/25 History packet (Metamucil Fiber (aspartame)) Allergies Allergy/AdvReac Type Severity Reaction Status Date / Time Cephalosporins Allergy Severe DIFF Verified 09/03/25 02:58 BREATHING, THROAT SWELLING atorvastatin Allergy Unknown Muscle Pain Verified 09/03/25 02:58 azithromycin Allergy Unknown Anaphylaxis Verified 09/03/25 02:58 cephalexin Allergy Unknown Difficulty Verified 09/03/25 02:58 Breathing erythromycin base Allergy Unknown Anaphylaxis Verified 09/03/25 02:58 levofloxacin Allergy Unknown Rash Verified 09/03/25 02:58 Penicillins Allergy Unknown Anaphylaxis Verified 09/03/25 02:58 spironolactone Allergy Unknown Unknown Verified 09/03/25 02:58 [id number] Reductase Allergy Unknown muscle Verified 09/03/25 02:58 Inhibitor ([id number] weakness Reductase Inhibitor) Sulfa (Sulfonamide Allergy Unknown Anaphylaxis Verified 09/03/25 02:58 Antibiotics) Vital Signs Vital Signs - 24 hr 09/04/25 20:00 09/04/25 21:09 09/04/25 21:38 Temperature 98.7 F Pulse Rate 65 65 Respiratory Rate 16 16 Blood Pressure 154/51 H Pulse Oximetry 97 95 97 Oxygen Delivery Nasal Cannula Oxygen Flow Rate 2 2 09/05/25 06:00 09/05/25 07:59 09/05/25 08:21 Temperature 98.6 F Pulse Rate 65 88 Respiratory Rate 18 Blood Pressure 158/55 H Pulse Oximetry 96 Oxygen Delivery Nasal Cannula Oxygen Flow Rate 2 09/05/25 14:00 09/05/25 14:29 09/05/25 14:35 Temperature 98.5 F Pulse Rate 70 66 65 Respiratory Rate 14 20 20 Blood Pressure 151/77 H Pulse Oximetry 95 Oxygen Delivery Oxygen Flow Rate Exam Narrative: on 2L Oe NC, NAD +wheezing abd soft NT obese Ext: bilateral LE edema Results Labs 09/05/25 05:03 09/05/25 05:03 Labs: Short CBC 09/05/25 Range/Units 05:03 WBC 7.5 (4.5-10.0) K/mm3 Hgb 8.9 L (12.0-15.0) g/dL Hct 28.7 L (37.0-47.0) % Plt Count 210 (150-375) k/mm3 BMP 09/05/25 05:03 Sodium 134 L Potassium 4.4 Chloride 103 Carbon Dioxide 26 BUN 57 H D Creatinine 2.31 H Glucose 87 Calcium 7.8 L
[2025-09-06] VITALS (17 sets, daily range): BP systolic 132–150; BP diastolic 46–49; PULSE 64–82; RESP 14–20; TEMP 36.6–38.2; O2SAT 92–97
[2025-09-06] MEDS: IPRATROPIUM 0.5 MG/ALBUTEROL SULFATE 2.5 MG (BASE) AMPUL.NEB 3 ML INHALATION ×4 (01:46→19:58)
[2025-09-06] MEDS: DOXYCYCLINE IV 100 MG in SODIUM CHLORIDE 0.9% IV 100 ML IVPB (01:49)
[2025-09-06 05:44] LABS: Hematocrit 28.0 % (37.0-47.0); Hemoglobin 8.7 g/dL (12.0-15.0); Mean Corpuscular HGB Conc 31.1 g/dl (32-36); Mean Corpuscular Hemoglobin 30.7 pg (26-34); Mean Corpuscular Volume 98.9 fl (80-100); Platelet Count Result 235 k/mm3 (150-375); Red Blood Count 2.83 M/mm3 (4.2-5.4); White Blood Count 8.4 K/mm3 (4.5-10.0)
[2025-09-06 06:08] LABS: Anion Gap 7 mmol/L (4-12); Blood Urea Nitrogen 65 mg/dL (7-17); Calcium 7.8 mg/dL (8.4-10.2); Carbon Dioxide 21 mmol/L (22-30); Chloride 101 mmol/L (98-107); Estimated CRCL calculation 19 ml/min; Estimated Glomerular Filt Rate 20; Glucose 87 mg/dL (65-110); Magnesium 2.5 mg/dL (1.6-2.3); Potassium 4.5 mmol/L (3.4-5.0); Sodium 129 mmol/L (137-145)
[2025-09-06] MEDS: SODIUM CHLORIDE 0.9% IV 1,000 ML 100 ML IV CONT ×2 (08:47→21:19)
[2025-09-06] MEDS: CLOPIDOGREL BISULFATE 75 MG TABLET PO (09:24)
[2025-09-06] MEDS: POTASSIUM CHLORIDE 20 MEQ ER TABLET PO (09:24)
[2025-09-06] MEDS: HYDROcodone/acetaminophen (*CRX) 7.5-325 MG TABLET 1 TAB PO ×2 (09:25→21:13)
[2025-09-06] MEDS: PANTOPRAZOLE 40 MG TABLET PO (09:25)
[2025-09-06] MEDS: guaiFENesin 12 HR 600 MG TABCR PO ×2 (09:25→21:13)
[2025-09-06] MEDS: AZTREONAM 2 GM in SODIUM CHLORIDE 0.9% IV 100 ML IVPB ×2 (09:29→21:56)
[2025-09-06 14:18] LABS: Anion Gap 9 mmol/L (4-12); Blood Urea Nitrogen 64 mg/dL (7-17); Calcium 7.8 mg/dL (8.4-10.2); Carbon Dioxide 20 mmol/L (22-30); Chloride 101 mmol/L (98-107); Estimated CRCL calculation 20 ml/min; Estimated Glomerular Filt Rate 21; Glucose 112 mg/dL (65-110); Potassium 4.6 mmol/L (3.4-5.0); Sodium 130 mmol/L (137-145)
--- NOTE | 2025-09-06 15:48 | P.PNIM_ITS ---
Progress Note: A&P Assessment and Plan (1) Acute hypoxic respiratory failure: Code(s): J96.01 - Acute respiratory failure with hypoxia Status: Acute Assessment and Plan: Chest x-ray shows patchy bilateral lower lobe opacities may represent pulmonary edema Chest CT pending Patient met sepsis criteria with leukocytosis and mild tachypnea Due to CHF recommend gentle fluid resuscitation Continue aztreonam Continue linezolid Continue Lasix Quad screen negative Baseline room air Currently on 2 L Nasal MRSA negative (2) Acute exacerbation of CHF (congestive heart failure): Qualifiers: Heart failure type: diastolic Qualified Code(s): I50.33 - Acute on chronic diastolic (congestive) heart failure Code(s): I50.9 - Heart failure, unspecified Status: Acute Assessment and Plan: Echocardiogram pending Prior echocardiogram from 2022 demonstrating diastolic dysfunction Elevated troponin BNP 10,200 strict I&O's and daily weights Possible demand ischemia History of 3 cardiac stents Continue lisinopril hydrochlorothiazide, atenolol and Norvasc (3) Pneumonia: Qualifiers: Laterality: bilateral Lung location: lower lobe of lung Pneumonia type: due to unspecified organism Qualified Code(s): J18.9 - Pneumonia, unspecified organism Code(s): J18.9 - Pneumonia, unspecified organism Status: Acute Assessment and Plan: Same as above (4) Bilateral pleural effusion: Code(s): J90 - Pleural effusion, not elsewhere classified Status: Acute Assessment and Plan: Pending CT results Lasix 40 mg IV b.i.d. (5) Elevated troponin: Code(s): R79.89 - Other specified abnormal findings of blood chemistry Status: Acute Assessment and Plan: Possible demand ischemia Cardiology consulted and appreciate recommendations (6) Anxiety: Code(s): F41.9 - Anxiety disorder, unspecified Status: Acute Assessment and Plan: After evaluation will consider BuSpar Diazepam 5 mg p.r.n. anxiety home medications Plan 85 y/o female presented with acute dyspnea seen by the pricer and suspect 2/2 multifactors with pneumonia and CHF with elevated BNP of 10,200, patient is being treated with Aztreonam, zithromax and Zyvox. and being diuresed with IV lasix, patient clinical symptoms are improving as patient was able to ambulate in the hallways without any difficulty and will repeat chest x-ray to further evaluate pneumonia. patient remains clinically stable. today patient stats she feels tired and her legs hurting and does not want walk, patient is wheezing and Scr is rising and currently not on Lasix, to further evaluate CXR was done which did not show any acute cardiopulmonary findings given portable technique. will continue to monitor, if her Scr does not improve, patient Scr continue to rise as patient fluid intake is poor, will add IVF and monitor, is Scr does not improve, will consult automotive internet sales consultant for further recommendations. gave guaifenesin and duo neb, will monitor. Subjective Date/time seen: 09/06/25 15:48 Interval history: 85 y/o female presented with acute dyspnea seen by the pricer and suspect 2/2 multifactors with pneumonia and CHF with elevated BNP of 10,200, patient is being treated with Aztreonam, zithromax and Zyvox. and being diuresed with IV lasix, patient clinical symptoms are improving as patient was able to ambulate in the hallways without any difficulty and will repeat chest x-ray to further evaluate pneumonia. patient remains clinically stable. today patient stats she feels tired and her legs hurting and does not want walk, patient is wheezing and Scr is rising and currently not on Lasix, to further evaluate CXR was done which did not show any acute cardiopulmonary findings given portable technique. will continue to monitor, if her Scr does not improve, patient Scr continue to rise as patient fluid intake is poor, will add IVF and monitor, is Scr does not improve, will consult automotive internet sales consultant for further recommendations. gave guaifenesin and duo neb, will monitor. Review of Systems Review of Systems: 12 systems were reviewed with pertinent positives and negatives per HPI. Except as documented in the HPI, all other systems were reviewed and are negative. She has chronic alopecia and wears a wig. She has upper and lower dentures in place. She has chronic knee pain and states that she needs knee replacement surgery but she is not a candidate. She has scars of the right knee due to prior trauma and ORIF. Exam Narrative: Morbidly obese Patient is comfortable, NAD HEENT: eyes are clear and none icteric LUNGS:CTA HEART: RR S1S2 ABD: BS+, Soft and nontender Lower extremities: no edema SKIN: nonjaundiced Neuro: grossly intact. Objective Data Vital Signs Vital Signs: Vital Signs - 24 hr 09/05/25 20:00 09/05/25 20:22 09/05/25 20:24 Temperature Pulse Rate 63 63 Respiratory Rate 20 20 Blood Pressure Pulse Oximetry 95 95 Oxygen Delivery Nasal Cannula Nasal Cannula Oxygen Flow Rate 2 2 Fraction of Inspired Oxygen 28 09/05/25 20:33 09/05/25 21:02 09/05/25 21:50 Temperature 37.8 C H Pulse Rate 65 69 69 Respiratory Rate 20 16 Blood Pressure 146/55 H Pulse Oximetry 97 Oxygen Delivery Oxygen Flow Rate Fraction of Inspired Oxygen 09/06/25 01:47 09/06/25 01:56 09/06/25 05:43 Temperature 38.2 C H Pulse Rate 64 65 66 Respiratory Rate 20 20 18 Blood Pressure 140/46 L Pulse Oximetry 96 Oxygen Delivery Oxygen Flow Rate Fraction of Inspired Oxygen 09/06/25 07:54 09/06/25 07:55 09/06/25 07:59 Temperature Pulse Rate 67 69 Respiratory Rate 20 20 Blood Pressure Pulse Oximetry 96 Oxygen Delivery Nasal Cannula Oxygen Flow Rate 2 Fraction of Inspired Oxygen 09/06/25 08:33 09/06/25 09:24 09/06/25 14:00 Temperature 36.9 C Pulse Rate 82 66 Respiratory Rate 14 Blood Pressure 150/49 H Pulse Oximetry 92 94 Oxygen Delivery Nasal Cannula Oxygen Flow Rate 1 Fraction of Inspired Oxygen 09/06/25 14:32 09/06/25 14:32 09/06/25 14:39 Temperature Pulse Rate 80 80 65 Respiratory Rate 20 20 20 Blood Pressure Pulse Oximetry 94 Oxygen Delivery Nasal Cannula Oxygen Flow Rate 1 Fraction of Inspired Oxygen Intake/Output Intake/Output: Intake & Output 09/03/25 09/04/25 09/05/25 09/06/25 23:59 23:59 23:59 23:59 Intake Total 1600 707 650 320 Output Total 1900 300 200 100 Balance -300 407 450 220 Meds/Results Medications: Active Medications Generic Name Dose Route Start Last Admin Trade Name Freq PRN Reason Stop Dose Admin Acetaminophen 650 mg 09/03/25 00:43 09/03/25 17:41 Acetaminophen 325 Mg Tablet PO 650 mg Q4H PRN Administration Mild Pain (1-3) or Fever Hydrocodone Bitart/Acetaminophen 1 tab 09/03/25 09:00 09/06/25 09:25 Hydrocodone/Acetaminophen (*Crx) 7.5-325 Mg Tablet PO 1 tab Q12HR VIELKA Administration Albuterol/Ipratropium 3 ml 09/05/25 14:00 09/06/25 14:31 Ipratropium 0.5 Mg/Albuterol Sulfate 2.5 Mg (Base) Ampul.Neb 3 Ml INHALATION 3 ml Q6HRT VIELKA Administration Amlodipine Besylate 10 mg 09/03/25 09:00 09/06/25 09:29 Amlodipine Besylate 10 Mg Tablet PO 10 mg DAILY VIELKA Administration Atenolol 50 mg 09/03/25 09:00 09/06/25 09:24 Atenolol 50 Mg Tablet PO 50 mg QAM VIELKA Administration Atenolol 100 mg 09/03/25 21:00 09/05/25 21:50 Atenolol 50 Mg Tablet PO 100 mg QHS VIELKA Administration Clopidogrel Bisulfate 75 mg 09/03/25 09:00 09/06/25 09:24 Clopidogrel Bisulfate 75 Mg Tablet PO 75 mg DAILY VIELKA Administration Dextrose 12.5 gm 09/03/25 00:49 Dextrose 50% 25 Gm/50 Ml Syringe IV PUSH PRN PRN Hypoglycemia Protocol Diazepam 5 mg 09/03/25 05:54 Diazepam (*Crx) 5 Mg Tablet PO DAILY PRN Anxiety Doxycycline Hyclate 100 mg 09/06/25 21:00 Doxycycline Hyclate 100 Mg Tablet PO Q12HR [facility] Furosemide 40 mg 09/04/25 09:00 Furosemide 40 Mg Tablet PO On Hold: 09/04/25 09:00 DAILY VIELKA Glucagon 1 mg 09/03/25 00:49 Glucagon For Inj 1 Mg Vial IM PRN PRN Hypoglycemia Protocol Glucose 15 gm 09/03/25 00:49 Glucose Oral Gel 15 Gm Of Glucse In 37.5 Gm Tube PO PRN PRN Hypoglycemia Protocol Guaifenesin 600 mg 09/05/25 11:00 09/06/25 09:25 Guaifenesin 12 Hr 600 Mg Tabcr PO 600 mg Q12HR VIELKA Administration Heparin Sodium (Porcine) 5,000 units 09/03/25 09:00 09/06/25 09:25 Heparin Sodium 5,000 Units/Ml Vial SUB-Q 5,000 units Q12HR VIELKA Administration Hydralazine HCl 25 mg 09/04/25 09:00 09/06/25 09:24 Hydralazine Hcl 25 Mg Tablet PO 25 mg Q12HR VIELKA Administration Hydrochlorothiazide 12.5 mg 09/03/25 09:00 09/06/25 09:24 Hydrochlorothiazide 12.5 Mg Capsule PO 12.5 mg QAM VIELKA Administration Dextrose 1,000 mls @ 100 mls/hr 09/03/25 00:49 Dextrose 5% 1,000 Ml IVPB PRN PRN Hypoglycemia Protocol Aztreonam 2 gm/ Sodium 100 mls @ 200 mls/hr 09/05/25 21:00 09/06/25 09:29 Chloride IVPB 200 mls/hr Q12HR VIELKA Administration Sodium Chloride 1,000 mls @ 100 mls/hr 09/06/25 07:45 09/06/25 08:47 Normal Saline Iv IV CONT 100 mls/hr .Q10H VIELKA Administration Lidocaine 1 patch 09/03/25 05:54 Lidocaine 5% Patch TOPICAL DAILY PRN Pain Lisinopril 20 mg 09/03/25 09:00 09/06/25 09:24 Lisinopril 20 Mg Tablet PO 20 mg QAM VIELKA Administration Nitroglycerin 0.4 mg 09/03/25 05:58 Nitroglycerin Sl 0.4 Mg Tablet SUBLINGUAL Q5M PRN Angina Ondansetron HCl 4 mg 09/03/25 00:43 Ondansetron Inj 4 Mg/2 Ml Vial IV PUSH Q4H PRN Nausea Pantoprazole Sodium 40 mg 09/03/25 09:00 09/06/25 09:25 Pantoprazole 40 Mg Tablet PO 40 mg QAM VIELKA Administration Potassium Chloride 20 meq 09/03/25 09:00 09/06/25 09:24 Potassium Chloride 20 Meq Er Tablet PO 20 meq DAILY VIELKA Administration Psyllium Hydrophilic Mucilloid 1 packet 09/03/25 09:00 09/06/25 12:31 Psyllium Sugar Free Powder Packet PO Not Given DAILY [facility] Radiology Results: ITS Impressions Chest CTA 09/03/25 08:41 IMPRESSION: 1. No pulmonary embolus. Sensitivity is moderately decreased by motion artifact. 2. Diffuse lung disease, consistent with pulmonary edema and/or pneumonia. 3. Small pleural effusions. Chest X-Ray 09/05/25 14:53 IMPRESSION: 1. No acute cardiopulmonary findings given portable technique. Labs Labs: Laboratory Results - last 24 hr 09/06/25 09/06/25 05:07 14:02 WBC 8.4 RBC 2.83 L Hgb 8.7 L Hct 28.0 L MCV 98.9 MCH 30.7 MCHC 31.1 L RDW 13.2 Plt Count 235 MPV 11.3 H Sodium 129 L 130 L Potassium 4.5 4.6 Chloride 101 101 Carbon Dioxide 21 L 20 L Anion Gap 7 9 BUN 65 H 64 H Creatinine 2.36 H 2.24 H Estim Creat Clear Calc 19 20 Estimated GFR 20 L 21 L Glucose 87 112 H Calcium 7.8 L 7.8 L Magnesium 2.5 H Quality VTE Prophylaxis VTE prophylaxis: pharmacologic ordered (Heparin 5000 units subQ q.12 hours)
[2025-09-06] MEDS: ACETAMINOPHEN 325 MG TABLET 650 MG PO (18:02)
--- NOTE | 2025-09-06 19:28 | WPDINFPN2 ---
Progress Note: A&P Assessment and Plan (1) Pneumonia: Qualifiers: Laterality: bilateral Lung location: lower lobe of lung Pneumonia type: due to unspecified organism Qualified Code(s): J18.9 - Pneumonia, unspecified organism Code(s): J18.9 - Pneumonia, unspecified organism Status: Acute Assessment and Plan: 1. acute respiratory failure--better 2. pneumonia in assisted living facility; MRSA nares neg 3. heart failure 4. former smoker, baseline on no o2 5. CAD 6. CKD 7. HTN 8. anaphylaxis to azithromycin, erythromycin, sulfa 9. rash to levaquin 10.SOB with cephalosporins 11. New fever RECOMMENDAITONS: continue aztreonam (day4) add doxycycline IV (day2) blood cxs NGTD--.repeat wean o2 as able d/w pharmacy staff Pt was seen via video telehealth consultation with the assistance of staff. Chart, data, and patient info independently reviewed. Pt was located at [facility] while I was located in my [place] office. Received verbal consent from patient. (2) Acute exacerbation of CHF (congestive heart failure): Qualifiers: Heart failure type: diastolic Qualified Code(s): I50.33 - Acute on chronic diastolic (congestive) heart failure Code(s): I50.9 - Heart failure, unspecified Status: Acute (3) Acute hypoxic respiratory failure: Code(s): J96.01 - Acute respiratory failure with hypoxia Status: Acute Subjective Date/time seen: 09/06/25 19:28 Interval history: +fever no leukocytosis feels better lots of arthritic pains Exam Narrative: NAD, frail, on 1L O2 NC, non-toxic Objective Data Vital Signs Vital Signs: Vital Signs - 24 hr 09/05/25 20:00 09/05/25 20:22 09/05/25 20:24 Temperature Pulse Rate 63 63 Respiratory Rate 20 20 Blood Pressure Pulse Oximetry 95 95 Oxygen Delivery Nasal Cannula Nasal Cannula Oxygen Flow Rate 2 2 Fraction of Inspired Oxygen 09/05/25 20:33 09/05/25 21:02 09/05/25 21:50 Temperature 100.0 F H Pulse Rate 65 69 69 Respiratory Rate 20 16 Blood Pressure 146/55 H Pulse Oximetry 97 Oxygen Delivery Oxygen Flow Rate Fraction of Inspired Oxygen 09/06/25 01:47 09/06/25 01:56 09/06/25 05:43 Temperature 100.7 F H Pulse Rate 64 65 66 Respiratory Rate 20 20 18 Blood Pressure 140/46 L Pulse Oximetry 96 Oxygen Delivery Oxygen Flow Rate Fraction of Inspired Oxygen 09/06/25 07:54 09/06/25 07:55 09/06/25 07:59 Temperature Pulse Rate 67 69 Respiratory Rate 20 20 Blood Pressure Pulse Oximetry 96 Oxygen Delivery Nasal Cannula Oxygen Flow Rate 2 Fraction of Inspired Oxygen 09/06/25 08:33 09/06/25 09:24 09/06/25 14:00 Temperature 98.4 F Pulse Rate 82 66 Respiratory Rate 14 Blood Pressure 150/49 H Pulse Oximetry 92 94 Oxygen Delivery Nasal Cannula Oxygen Flow Rate 1 Fraction of Inspired Oxygen 09/06/25 14:32 09/06/25 14:32 09/06/25 14:39 Temperature Pulse Rate 80 80 65 Respiratory Rate 20 20 20 Blood Pressure Pulse Oximetry 94 Oxygen Delivery Nasal Cannula Oxygen Flow Rate 1 Fraction of Inspired Oxygen Intake/Output Intake/Output: Intake & Output 09/03/25 09/04/25 09/05/25 09/06/25 23:59 23:59 23:59 23:59 Intake Total 1600 707 650 870 Output Total 1900 300 200 100 Balance -300 407 450 770 Meds/Results Medications: Active Medications Generic Name Dose Route Start Last Admin Trade Name Freq PRN Reason Stop Dose Admin Acetaminophen 650 mg 09/03/25 00:43 09/06/25 18:02 Acetaminophen 325 Mg Tablet PO 650 mg Q4H PRN Administration Mild Pain (1-3) or Fever Hydrocodone Bitart/Acetaminophen 1 tab 09/03/25 09:00 09/06/25 09:25 Hydrocodone/Acetaminophen (*Crx) 7.5-325 Mg Tablet PO 1 tab Q12HR VIELKA Administration Albuterol/Ipratropium 3 ml 09/05/25 14:00 09/06/25 14:31 Ipratropium 0.5 Mg/Albuterol Sulfate 2.5 Mg (Base) Ampul.Neb 3 Ml INHALATION 3 ml Q6HRT VIELKA Administration Amlodipine Besylate 10 mg 09/03/25 09:00 09/06/25 09:29 Amlodipine Besylate 10 Mg Tablet PO 10 mg DAILY VIELKA Administration Atenolol 50 mg 09/03/25 09:00 09/06/25 09:24 Atenolol 50 Mg Tablet PO 50 mg QAM VIELKA Administration Atenolol 100 mg 09/03/25 21:00 09/05/25 21:50 Atenolol 50 Mg Tablet PO 100 mg QHS VIELKA Administration Clopidogrel Bisulfate 75 mg 09/03/25 09:00 09/06/25 09:24 Clopidogrel Bisulfate 75 Mg Tablet PO 75 mg DAILY VIELKA Administration Dextrose 12.5 gm 09/03/25 00:49 Dextrose 50% 25 Gm/50 Ml Syringe IV PUSH PRN PRN Hypoglycemia Protocol Diazepam 5 mg 09/03/25 05:54 Diazepam (*Crx) 5 Mg Tablet PO DAILY PRN Anxiety Doxycycline Hyclate 100 mg 09/06/25 21:00 Doxycycline Hyclate 100 Mg Tablet PO Q12HR VIELKA Furosemide 40 mg 09/04/25 09:00 Furosemide 40 Mg Tablet PO On Hold: 09/04/25 09:00 DAILY VIELKA Glucagon 1 mg 09/03/25 00:49 Glucagon For Inj 1 Mg Vial IM PRN PRN Hypoglycemia Protocol Glucose 15 gm 09/03/25 00:49 Glucose Oral Gel 15 Gm Of Glucse In 37.5 Gm Tube PO PRN PRN Hypoglycemia Protocol Guaifenesin 600 mg 09/05/25 11:00 09/06/25 09:25 Guaifenesin 12 Hr 600 Mg Tabcr PO 600 mg Q12HR VIELKA Administration Heparin Sodium (Porcine) 5,000 units 09/03/25 09:00 09/06/25 09:25 Heparin Sodium 5,000 Units/Ml Vial SUB-Q 5,000 units Q12HR VIELKA Administration Hydralazine HCl 25 mg 09/04/25 09:00 09/06/25 09:24 Hydralazine Hcl 25 Mg Tablet PO 25 mg Q12HR VIELKA Administration Hydrochlorothiazide 12.5 mg 09/03/25 09:00 09/06/25 09:24 Hydrochlorothiazide 12.5 Mg Capsule PO 12.5 mg QAM VIELKA Administration Dextrose 1,000 mls @ 100 mls/hr 09/03/25 00:49 Dextrose 5% 1,000 Ml IVPB PRN PRN Hypoglycemia Protocol Aztreonam 2 gm/ Sodium 100 mls @ 200 mls/hr 09/05/25 21:00 09/06/25 09:29 Chloride IVPB 200 mls/hr Q12HR VIELKA Administration Sodium Chloride 1,000 mls @ 100 mls/hr 09/06/25 07:45 09/06/25 08:47 Normal Saline Iv IV CONT 100 mls/hr .Q10H VIELKA Administration Lidocaine 1 patch 09/03/25 05:54 Lidocaine 5% Patch TOPICAL DAILY PRN Pain Lisinopril 20 mg 09/03/25 09:00 09/06/25 09:24 Lisinopril 20 Mg Tablet PO 20 mg QAM VIELKA Administration Nitroglycerin 0.4 mg 09/03/25 05:58 Nitroglycerin Sl 0.4 Mg Tablet SUBLINGUAL Q5M PRN Angina Ondansetron HCl 4 mg 09/03/25 00:43 Ondansetron Inj 4 Mg/2 Ml Vial IV PUSH Q4H PRN Nausea Pantoprazole Sodium 40 mg 09/03/25 09:00 09/06/25 09:25 Pantoprazole 40 Mg Tablet PO 40 mg QAM VIELKA Administration Potassium Chloride 20 meq 09/03/25 09:00 09/06/25 09:24 Potassium Chloride 20 Meq Er Tablet PO 20 meq DAILY VIELKA Administration Psyllium Hydrophilic Mucilloid 1 packet 09/03/25 09:00 09/06/25 12:31 Psyllium Sugar Free Powder Packet PO Not Given DAILY [facility] Radiology Results: ITS Impressions Chest CTA 09/03/25 08:41 IMPRESSION: 1. No pulmonary embolus. Sensitivity is moderately decreased by motion artifact. 2. Diffuse lung disease, consistent with pulmonary edema and/or pneumonia. 3. Small pleural effusions. Chest X-Ray 09/05/25 14:53 IMPRESSION: 1. No acute cardiopulmonary findings given portable technique. Labs Labs: Laboratory Results - last 24 hr 09/06/25 09/06/25 05:07 14:02 WBC 8.4 RBC 2.83 L Hgb 8.7 L Hct 28.0 L MCV 98.9 MCH 30.7 MCHC 31.1 L RDW 13.2 Plt Count 235 MPV 11.3 H Sodium 129 L 130 L Potassium 4.5 4.6 Chloride 101 101 Carbon Dioxide 21 L 20 L Anion Gap 7 9 BUN 65 H 64 H Creatinine 2.36 H 2.24 H Estim Creat Clear Calc 19 20 Estimated GFR 20 L 21 L Glucose 87 112 H Calcium 7.8 L 7.8 L Magnesium 2.5 H
[2025-09-06] MEDS: DOXYCYCLINE HYCLATE 100 MG TABLET PO (21:13)
[2025-09-07] VITALS (10 sets, daily range): BP systolic 99–151; BP diastolic 36–71; PULSE 60–68; RESP 18–22; TEMP 36.6; O2SAT 94–97
[2025-09-07] MEDS: IPRATROPIUM 0.5 MG/ALBUTEROL SULFATE 2.5 MG (BASE) AMPUL.NEB 3 ML INHALATION ×2 (01:31→14:29)
[2025-09-07 06:01] LABS: Hematocrit 27.1 % (37.0-47.0); Hemoglobin 8.5 g/dL (12.0-15.0); Mean Corpuscular HGB Conc 31.4 g/dl (32-36); Mean Corpuscular Hemoglobin 31.4 pg (26-34); Mean Corpuscular Volume 100.0 fl (80-100); Platelet Count Result 230 k/mm3 (150-375); Red Blood Count 2.71 M/mm3 (4.2-5.4); White Blood Count 8.8 K/mm3 (4.5-10.0)
[2025-09-07 06:21] LABS: Anion Gap 8 mmol/L (4-12); Blood Urea Nitrogen 68 mg/dL (7-17); Calcium 7.6 mg/dL (8.4-10.2); Carbon Dioxide 18 mmol/L (22-30); Chloride 105 mmol/L (98-107); Estimated CRCL calculation 23 ml/min; Estimated Glomerular Filt Rate 25; Glucose 94 mg/dL (65-110); Magnesium 2.5 mg/dL (1.6-2.3); Potassium 4.5 mmol/L (3.4-5.0); Sodium 131 mmol/L (137-145)
[2025-09-07] MEDS: HYDROcodone/acetaminophen (*CRX) 7.5-325 MG TABLET 1 TAB PO ×2 (09:22→20:53)
[2025-09-07] MEDS: DOXYCYCLINE HYCLATE 100 MG TABLET PO ×2 (09:22→20:53)
[2025-09-07] MEDS: POTASSIUM CHLORIDE 20 MEQ ER TABLET PO (09:22)
[2025-09-07] MEDS: guaiFENesin 12 HR 600 MG TABCR PO ×2 (09:22→20:50)
[2025-09-07] MEDS: PANTOPRAZOLE 40 MG TABLET PO (09:22)
[2025-09-07] MEDS: CLOPIDOGREL BISULFATE 75 MG TABLET PO (09:22)
[2025-09-07] MEDS: PSYLLIUM SUGAR FREE POWDER PACKET 1 PACKET PO (09:23)
[2025-09-07] MEDS: AZTREONAM 2 GM in SODIUM CHLORIDE 0.9% IV 100 ML IVPB ×2 (09:23→20:58)
--- NOTE | 2025-09-07 09:30 | PC.NURSE ---
Provider notifed of pt complaints of pain and edema to LUE and LLE.
--- NOTE | 2025-09-07 09:53 | PCOTNOTE ---
Attempted to see Patient at the time. Patient refuses all activity, states don't feel good, I hurt everywhere, don't touch me. Patient is hateful and very difficulty to assist ot attempt to make things better at this time.
--- NOTE | 2025-09-07 12:26 | P.PNIM_ITS ---
Progress Note: A&P Assessment and Plan (1) Acute hypoxic respiratory failure: Code(s): J96.01 - Acute respiratory failure with hypoxia Status: Acute Assessment and Plan: Chest x-ray shows patchy bilateral lower lobe opacities may represent pulmonary edema Chest CT pending Patient met sepsis criteria with leukocytosis and mild tachypnea Due to CHF recommend gentle fluid resuscitation Continue aztreonam Continue linezolid Continue Lasix Quad screen negative Baseline room air Currently on 2 L Nasal MRSA negative (2) Acute exacerbation of CHF (congestive heart failure): Qualifiers: Heart failure type: diastolic Qualified Code(s): I50.33 - Acute on chronic diastolic (congestive) heart failure Code(s): I50.9 - Heart failure, unspecified Status: Acute Assessment and Plan: Echocardiogram pending Prior echocardiogram from 2022 demonstrating diastolic dysfunction Elevated troponin BNP 10,200 strict I&O's and daily weights Possible demand ischemia History of 3 cardiac stents Continue lisinopril hydrochlorothiazide, atenolol and Norvasc (3) Pneumonia: Qualifiers: Laterality: bilateral Lung location: lower lobe of lung Pneumonia type: due to unspecified organism Qualified Code(s): J18.9 - Pneumonia, unspecified organism Code(s): J18.9 - Pneumonia, unspecified organism Status: Acute Assessment and Plan: Same as above (4) Bilateral pleural effusion: Code(s): J90 - Pleural effusion, not elsewhere classified Status: Acute Assessment and Plan: Pending CT results Lasix 40 mg IV b.i.d. (5) Elevated troponin: Code(s): R79.89 - Other specified abnormal findings of blood chemistry Status: Acute Assessment and Plan: Possible demand ischemia Cardiology consulted and appreciate recommendations (6) Anxiety: Code(s): F41.9 - Anxiety disorder, unspecified Status: Acute Assessment and Plan: After evaluation will consider BuSpar Diazepam 5 mg p.r.n. anxiety home medications Plan 85 y/o female presented with acute dyspnea seen by the baseboard heating installer and suspect 2/2 multifactors with pneumonia and CHF with elevated BNP of 10,200, patient is being treated with Aztreonam, zithromax and Zyvox. and being diuresed with IV lasix, patient clinical symptoms are improving as patient was able to ambulate in the hallways without any difficulty and will repeat chest x-ray to further evaluate pneumonia. patient remains clinically stable. today patient stats she feels tired and her legs hurting and does not want to walk, or work with PT, patient is wheezing and Scr is rising and currently not on Lasix, to further evaluate CXR was done which did not show any acute cardiopulmonary findings given portable technique. will continue to monitor, Patient Scr is persisting, started the patient on IVF there is slight improvement in her Scr however her urine put is poor, will consult waiter/waitress room service for further recommendation to follow. again patient is refusing to get out bed and not participating with PT. patient encourage as her OA will get worse. Subjective Date/time seen: 09/07/25 12:26 Interval history: 85 y/o female presented with acute dyspnea seen by the baseboard heating installer and suspect 2/2 multifactors with pneumonia and CHF with elevated BNP of 10,200, patient is being treated with Aztreonam, zithromax and Zyvox. and being diuresed with IV lasix, patient clinical symptoms are improving as patient was able to ambulate in the hallways without any difficulty and will repeat chest x-ray to further evaluate pneumonia. patient remains clinically stable. today patient stats she feels tired and her legs hurting and does not want to walk, or work with PT, patient is wheezing and Scr is rising and currently not on Lasix, to further evaluate CXR was done which did not show any acute cardiopulmonary findings given portable technique. will continue to monitor, Patient Scr is persisting, started the patient on IVF there is slight improvement in her Scr however her urine put is poor, will consult waiter/waitress room service for further recommendation to follow. again patient is refusing to get out bed and not participating with PT. patient encourage as her OA will get worse. Review of Systems Review of Systems: 12 systems were reviewed with pertinent positives and negatives per HPI. Except as documented in the HPI, all other systems were reviewed and are negative. She has chronic alopecia and wears a wig. She has upper and lower dentures in place. She has chronic knee pain and states that she needs knee replacement surgery but she is not a candidate. She has scars of the right knee due to prior trauma and ORIF. Exam Narrative: Morbidly obese Patient is comfortable, NAD HEENT: eyes are clear and none icteric LUNGS:CTA HEART: RR S1S2 ABD: BS+, Soft and nontender Lower extremities: no edema SKIN: nonjaundiced Neuro: grossly intact. Objective Data Vital Signs Vital Signs: Vital Signs - 24 hr 09/06/25 14:00 09/06/25 14:32 09/06/25 14:32 Temperature 36.9 C Pulse Rate 66 80 80 Respiratory Rate 14 20 20 Blood Pressure 150/49 H Pulse Oximetry 94 94 Oxygen Delivery Nasal Cannula Oxygen Flow Rate 1 09/06/25 14:39 09/06/25 19:59 09/06/25 20:00 Temperature Pulse Rate 65 68 Respiratory Rate 20 20 Blood Pressure Pulse Oximetry 97 Oxygen Delivery Nasal Cannula Oxygen Flow Rate 1 09/06/25 20:01 09/06/25 20:09 09/06/25 21:12 Temperature Pulse Rate 69 68 Respiratory Rate 20 Blood Pressure Pulse Oximetry 94 Oxygen Delivery Nasal Cannula Oxygen Flow Rate 1 09/06/25 22:00 09/07/25 01:32 09/07/25 01:40 Temperature 36.6 C Pulse Rate 64 66 65 Respiratory Rate 20 18 18 Blood Pressure 132/47 L Pulse Oximetry 95 Oxygen Delivery Oxygen Flow Rate 09/07/25 05:29 09/07/25 08:00 Temperature 36.6 C Pulse Rate 66 Respiratory Rate 20 Blood Pressure 151/41 H Pulse Oximetry 97 97 Oxygen Delivery Nasal Cannula Oxygen Flow Rate 1 Intake/Output Intake/Output: Intake & Output 09/04/25 09/05/25 09/06/25 09/07/25 23:59 23:59 23:59 23:59 Intake Total 905 131 7176 1020 Output Total 300 200 100 300 Balance 027 596 3838 720 Meds/Results Medications: Active Medications Generic Name Dose Route Start Last Admin Trade Name Freq PRN Reason Stop Dose Admin Acetaminophen 650 mg 09/03/25 00:43 09/06/25 18:02 Acetaminophen 325 Mg Tablet PO 650 mg Q4H PRN Administration Mild Pain (1-3) or Fever Hydrocodone Bitart/Acetaminophen 1 tab 09/03/25 09:00 09/07/25 09:22 Hydrocodone/Acetaminophen (*Crx) 7.5-325 Mg Tablet PO 1 tab Q12HR VIELKA Administration Albuterol/Ipratropium 3 ml 09/05/25 14:00 09/07/25 07:15 Ipratropium 0.5 Mg/Albuterol Sulfate 2.5 Mg (Base) Ampul.Neb 3 Ml INHALATION Not Given Q6HRT VIELKA Amlodipine Besylate 10 mg 09/03/25 09:00 09/07/25 09:22 Amlodipine Besylate 10 Mg Tablet PO 10 mg DAILY VIELKA Administration Atenolol 50 mg 09/03/25 09:00 09/07/25 09:22 Atenolol 50 Mg Tablet PO 50 mg QAM VIELKA Administration Atenolol 100 mg 09/03/25 21:00 09/06/25 21:12 Atenolol 50 Mg Tablet PO 100 mg QHS VIELKA Administration Clopidogrel Bisulfate 75 mg 09/03/25 09:00 09/07/25 09:22 Clopidogrel Bisulfate 75 Mg Tablet PO 75 mg DAILY VIELKA Administration Dextrose 12.5 gm 09/03/25 00:49 Dextrose 50% 25 Gm/50 Ml Syringe IV PUSH PRN PRN Hypoglycemia Protocol Diazepam 5 mg 09/03/25 05:54 Diazepam (*Crx) 5 Mg Tablet PO DAILY PRN Anxiety Doxycycline Hyclate 100 mg 09/06/25 21:00 09/07/25 09:22 Doxycycline Hyclate 100 Mg Tablet PO 100 mg Q12HR VIELKA Administration Furosemide 40 mg 09/04/25 09:00 Furosemide 40 Mg Tablet PO On Hold: 09/04/25 09:00 DAILY VIELKA Glucagon 1 mg 09/03/25 00:49 Glucagon For Inj 1 Mg Vial IM PRN PRN Hypoglycemia Protocol Glucose 15 gm 09/03/25 00:49 Glucose Oral Gel 15 Gm Of Glucse In 37.5 Gm Tube PO PRN PRN Hypoglycemia Protocol Guaifenesin 600 mg 09/05/25 11:00 09/07/25 09:22 Guaifenesin 12 Hr 600 Mg Tabcr PO 600 mg Q12HR VIELKA Administration Heparin Sodium (Porcine) 5,000 units 09/03/25 09:00 09/07/25 09:22 Heparin Sodium 5,000 Units/Ml Vial SUB-Q 5,000 units Q12HR VIELKA Administration Hydralazine HCl 25 mg 09/04/25 09:00 09/07/25 09:22 Hydralazine Hcl 25 Mg Tablet PO 25 mg Q12HR VIELKA Administration Hydrochlorothiazide 12.5 mg 09/03/25 09:00 09/07/25 09:22 Hydrochlorothiazide 12.5 Mg Capsule PO 12.5 mg QAM VIELKA Administration Dextrose 1,000 mls @ 100 mls/hr 09/03/25 00:49 Dextrose 5% 1,000 Ml IVPB PRN PRN Hypoglycemia Protocol Aztreonam 2 gm/ Sodium 100 mls @ 200 mls/hr 09/05/25 21:00 09/07/25 09:23 Chloride IVPB 200 mls/hr Q12HR VIELKA Administration Lidocaine 1 patch 09/03/25 05:54 Lidocaine 5% Patch TOPICAL DAILY PRN Pain Lisinopril 20 mg 09/03/25 09:00 09/07/25 09:22 Lisinopril 20 Mg Tablet PO 20 mg QAM VIELKA Administration Nitroglycerin 0.4 mg 09/03/25 05:58 Nitroglycerin Sl 0.4 Mg Tablet SUBLINGUAL Q5M PRN Angina Ondansetron HCl 4 mg 09/03/25 00:43 Ondansetron Inj 4 Mg/2 Ml Vial IV PUSH Q4H PRN Nausea Pantoprazole Sodium 40 mg 09/03/25 09:00 09/07/25 09:22 Pantoprazole 40 Mg Tablet PO 40 mg QAM VIELKA Administration Potassium Chloride 20 meq 09/03/25 09:00 09/07/25 09:22 Potassium Chloride 20 Meq Er Tablet PO 20 meq DAILY VIELKA Administration Psyllium Hydrophilic Mucilloid 1 packet 09/03/25 09:00 09/07/25 09:23 Psyllium Sugar Free Powder Packet PO 1 packet DAILY VIELKA Administration Radiology Results: ITS Impressions Chest CTA 09/03/25 08:41 IMPRESSION: 1. No pulmonary embolus. Sensitivity is moderately decreased by motion artifact. 2. Diffuse lung disease, consistent with pulmonary edema and/or pneumonia. 3. Small pleural effusions. Chest X-Ray 09/05/25 14:53 IMPRESSION: 1. No acute cardiopulmonary findings given portable technique. Labs Labs: Laboratory Results - last 24 hr 09/06/25 09/07/25 14:02 05:27 WBC 8.8 RBC 2.71 L Hgb 8.5 L Hct 27.1 L MCV 100.0 MCH 31.4 MCHC 31.4 L RDW 13.4 Plt Count 230 MPV 11.3 H Sodium 130 L 131 L Potassium 4.6 4.5 Chloride 101 105 Carbon Dioxide 20 L 18 L Anion Gap 9 8 BUN 64 H 68 H Creatinine 2.24 H 1.93 H Estim Creat Clear Calc 20 23 Estimated GFR 21 L 25 L Glucose 112 H 94 Calcium 7.8 L 7.6 L Magnesium 2.5 H Quality VTE Prophylaxis VTE prophylaxis: pharmacologic ordered (Heparin 5000 units subQ q.12 hours)
--- NOTE | 2025-09-07 12:35 | P.CONNP_ITS ---
Assessment and Plan Assessment and plan (1) Acute kidney injury: Code(s): N17.9 - Acute kidney failure, unspecified Status: Acute Assessment and Plan: * as noted by labs on 09/04 * at baseline on admission * suspect multifactorial etiology: * contrast exposure (CTA chest on 09/03) * CHF * need for diuretics * infection (pneumonia) * concurrent GI-I and HCTZ on admission * hypoxia * relative anemia * other(?) * diuretics on hold * will hold lisinopril/HCTZ/potassium * check urine studies and renal ultrasound * follow trend of repeat labs and UOP (2) Stage 3b chronic kidney disease: Code(s): N18.32 - Chronic kidney disease, stage 3b Status: Chronic Assessment and Plan: * baseline creatinine was running around 1.2 - 1.5mg/dL in the last few years * however, cannot discount a degree of disease progression * presumably due to hypertension, vascular disease and age-related change (3) Acute hypoxic respiratory failure: Code(s): J96.01 - Acute respiratory failure with hypoxia Status: Acute Assessment and Plan: * as noted on presentation * imaging noted: * CXR with bilateral lobe opacities (which may represent pulmonary edema) * Chest CT with diffuse lung disease, consistent with pulmonary edema and/or pneumonia.and small pleural effusions * viral testing for influenza/RSV/COVD negative * continue treatment with antibiotic and diuresis * continue supportive therapy (4) Acute exacerbation of CHF (congestive heart failure): Qualifiers: Heart failure type: diastolic Qualified Code(s): I50.33 - Acute on chronic diastolic (congestive) heart failure Code(s): I50.9 - Heart failure, unspecified Status: Acute Assessment and Plan: * Echo from 2022 with noted diastolic dysfunction * repeat Echo (09/03) noted: * left ventricular systolic function is normal, estimated at 60 - 65% * left ventricular diastolicfunction is normal * mild mitral regurgitation * trivial aortic regurgitation * mild pulmonic regurgitation * known history of CAD * BNP 10,200 * diuresis on hold -- plan to resume as kidney function improves * follow I&O's and daily weights (5) Pneumonia: Qualifiers: Laterality: bilateral Lung location: lower lobe of lung Pneumonia type: due to unspecified organism Qualified Code(s): J18.9 - Pneumonia, unspecified organism Code(s): J18.9 - Pneumonia, unspecified organism Status: Acute Assessment and Plan: * as suggested by admission imaging * felt to be etiology of #3 more than CHF * follow culture data * on antibiotics (6) Anemia: Code(s): D64.9 - Anemia, unspecified Status: Acute Assessment and Plan: * likely due to AMAURY, CKD, and acute illness * follow trend of H/H * consider BAO while hospitalized (7) HTN (hypertension): Qualifiers: Hypertension type: unspecified Qualified Code(s): I10 - Essential (primary) hypertension Code(s): I10 - Essential (primary) hypertension Status: Chronic Assessment and Plan: * BP on the soft side * holding GI-I and diuretics * other BP medications with parameters * follow trend of hemodynamics (8) Generalized weakness: Code(s): R53.1 - Weakness Status: Acute Assessment and Plan: * likely due to acute illness * PT/OT as tolerated I will continue to follow the patient with you while he remains hospitalized and make further recommendations as deemed necessary. Thank you for allowing me to participate in the care of this patient. L History of Present Illness Reason for Consult Consult date: 09/07/25 Reason for consult: acute renal failure (on chronic kidney disease) Chief Complaint Chief complaint: Acute hypoxic respiratory failure, CHF, PNA, elev History of Present Illness Narrative: The patient is an 85-year-old female with a past medical history as outlined below who who presented to [facility] Emergency Room with complaints of shortness of breath. She reports that she felt like she had the flu (and does not take the flu shot due previous reactions in the past). She started having body aches on the 08/30. The next day she began having chills where she felt like she was cold on the inside her body and could not get warm. She was checking her temperature with an oral thermometer and had a T-max of 100.3?. She had noticed some rattling in her chest and became acutely short of breath on the 09/02 resulting in her coming to the ER. her shortness of breath apparently resulted in a panic attack as well. She denies any cough or congestion. She does live at assisted living and there have been respiratory viruses in the facility. Given her constellation of symptoms, she presented to the ER for furrther assessment. Workup and evaluation in the emergency room demonstrated the patient to be hemodynamically stable but mildly tachypneic in association with hypoxia with readings of 88% on room air. Supplemental oxygen was applied which improved her oxygen saturations. Routine blood tests was remarkable for a mildly elevated white blood count 12.1, hemoglobin 11.2, normal platelet count, normal chemistry, the creatinine of 1.25, normal LFTs[place] [address]. Viral testing for influenza, RSV, and COVID were negative. Her chest x-ray noted bilateral lower lobe opacities, possibly representing pulmonary edema. EKG shows sinus rhythm, no significant concerning ST changes. D-dimer resulted elevated at 2.78. CTA of chest was obtained and with no evidence of PE, does show infiltrates, combination of edema/infection/aspiration and small to moderate bilateral pleural effusions. After appropriate cultures were obtained, she was initiated on IV antibiotics Interceed dose of IV Lasix and was subsequently admitted to the hospital for further evaluation and therapy. Since her admission, her respiratory status has been fluctuating but overall seems to have improved. However, it has been noted that her renal function / creatinine has been deteriorating in association fluctuating urine output. Her diuretics are currently on hold because of this. At Renal consultation was requested due to her acute kidney injury/ acute renal failure on top of her baseline chronic kidney disease. Her baseline creatinine runs around 1.2-1.5 mg/dL in the last few years and is thought to be secondary to a combination of hypertension, vascular disease, and age. The her renal function on admission was within her baseline function. However, it would seem with IV diuresis it did worsen resulted in discontinuation of IV Lasix. Her renal function seems to have slightly improved with this intervention. In spite of her worsening renal function, she has not had any issues or problems with critical electrolyte abnormalities, metabolic acidosis, or uremia although her volume status seems to be fluctuate although based on assessment by Cardiology, they feel that her shortness of breath is more related to pneumonia rather than congestive heart failure. Currently, at the time my evaluation, she appears to be in no acute distress. Review of Systems 2 Review of Systems: As per HPI. [facility] Past Medical History Medical History (Updated 09/29/25 @ 05:43 by Kathleen Pratt MD) Chronic right shoulder pain Back pain Osteopenia Statin intolerance Vitamin D deficiency Shingles Compression fracture of lumbar spine, non-traumatic Bilateral knee pain Myocardial infarction GERD without esophagitis Anxiety Paranoia (psychosis) Hyperlipidemia Chronic back pain Adult failure to thrive General weakness Fracture lt shoulder Arthritis rt shoulder, back Chronic lower back pain HTN (hypertension) Surgical History Surgical History Hx of shoulder surgery (~2013) lt shoulder replacement H/O right knee surgery (~1988) ORIF H/O: hysterectomy (~1978) Hx of cholecystectomy (~1992) Hx of appendectomy (~1978) Hx of heart artery stent (~2010) x3 Hx of cataract surgery (~1992) bilateral Family History Family History Mother Cerebrovascular accident, Onset Age: 77 Patient's mother is Family history of coronary artery disease Family history of osteoarthritis Family history of congestive heart failure Father Family history of lung cancer Patient's father is Family history of malignant neoplasm Grandparent Cerebrovascular accident Family history of heart disease in male family member before age 55 Social History Social History (Updated 09/03/25 @ 07:37 by Maryellen Hamilton DO) Social History: The patient's same-sex partner of 35 year (2018), she moved to [facility] in 2020. She has no children. She has has a power of commercial real estate attorney (Mo Pelletier) who is an commercial real estate attorney and a family friend. She said she used to smoke but quit in the 1980s. No alcohol or illicit drugs. Code status: DNR/DNI (she states that if she were unable to speak or had a stroke she would not want any aggressive care she would want to be made comfort measures. She would be okay with medications for blood pressure support but would not want any invasive respiratory support or cardiac support) Surrogate decision maker: Issa Griffith (friend) Smoking packs per day: 1 Smoking cigarettes per day: 20.0 Years smoked: 35 Smoking pack-years: 35.00 Smoking status: Former smoker Tobacco type: cigarettes Second hand tobacco smoke exposure: No Smoking end date: 07/11/80 Alcohol intake: never Substance use: never Substance use type: does not use Do You Feel Safe in your Home?: No Lack of Transportation: No Lack of Food: Never True Current Housing: I Have Housing Concerned About Future Housing: No Difficulty Paying Gas/Electric Bills: No Difficulty Paying for Meds: No Currently Unemployed: No Education: High School Diploma/GED Difficulty w/ Childcare or Family Care: No Living arrangements: assisted living Occupation/Education: retired Gender identity (if verbalized by the patient): Female Spiritual care concerns: No Agree to blood products: Yes Meds Home Medications and Allergies Home Medications ?Medication ?Instructions ?Recorded ?Confirmed ?Type pantoprazole 40 mg tablet,delayed 40 mg PO QAM 9 09/03/25 History release (Protonix) acetaminophen 325 mg tablet (Mapap 650 mg (2 x 325 mg) PO Q4H PRN 12/04/19 09/03/25 Rx (acetaminophen)) Mild Pain (1-3) Or Fever #30 tabs amlodipine 10 mg tablet 10 mg PO DAILY 05/28/2108/11 History clopidogrel 75 mg tablet 75 mg PO DAILY #90 tabs 08/1009/03/25 Rx lisinopril 20 1 tablet PO DAILY #90 tabs 1 12/01/20 09/03/25 Rx mg-hydrochlorothiazide 12.5 mg tablet atenolol 100 mg tablet 50 mg PO QAM 07/05/23 History atenolol 100 mg tablet 100 mg PO QPM 07/05/2309/03 History furosemide 40 mg tablet (Lasix) 40 mg PO QAM #90 tabs 09/08/23 09/03/25 Rx nitroglycerin 0.4 mg sublingual 0.4 mg sublingual Q5M PRN Angina 07/20/24 09/03/25 Rx tablet #30 tabs diazepam 5 mg tablet 5 mg PO DAILY PRN anxiety #9 0 tabs 11/26/24 09/03/25 Rx hydrocodone 7.5 mg-acetaminophen 1 tablet PO Q12H 08/1109/03/25 History 325 mg tablet lidocaine 5 % topical patch 1 patch topical DAILY PRN pain 09/03/25 09/03/25 History loperamide 2 mg capsule (Imodium 2 mg PO .COMPLEX PRN loose stool 09/03/25 09/03/25 History A-D) potassium chloride 10 mEq 20 meq PO DAILY 09/03/25 History tablet,extended release (Klor-Con) psyllium husk 3.4 gram oral powder 3.4 g PO DAILY 08/1109/03/25 History packet (Metamucil Fiber (aspartame)) doxycycline hyclate 100 mg tablet 100 mg PO Q12HR #14 tabs 09/10/25 Rx ferrous sulfate 325 mg (65 mg 325 mg PO DAILY #30 tabs 09/10/25 Rx iron) tablet (iron) hydralazine 25 mg tablet 25 mg PO Q12HR #60 tabs 12/04 Rx Allergies Allergy/AdvReac Type Severity Reaction Status Date / Time Cephalosporins Allergy Severe DIFF Verified 09/03/25 02:58 BREATHING, THROAT SWELLING atorvastatin Allergy Unknown Muscle Pain Verified 09/03/25 02:58 azithromycin Allergy Unknown Anaphylaxis Verified 09/03/25 02:58 cephalexin Allergy Unknown Difficulty Verified 09/03/25 02:58 Breathing erythromycin base Allergy Unknown Anaphylaxis Verified 09/03/25 02:58 levofloxacin Allergy Unknown Rash Verified 09/03/25 02:58 Penicillins Allergy Unknown Anaphylaxis Verified 09/03/25 02:58 spironolactone Allergy Unknown Unknown Verified 09/03/25 02:58 Xyjzeen-MIO-EzU Reductase Allergy Unknown muscle Verified 09/03/25 02:58 Inhibitor (Gweqfji-Wsc-Mzh weakness Reductase Inhibitor) Sulfa (Sulfonamide Allergy Unknown Anaphylaxis Verified 09/03/25 02:58 Antibiotics) Vital Signs Vital Signs Temp Pulse Resp BP Pulse Ox O2 Del Method O2 Flow Rate 09/07/25 12:18 97.9 F 63 22 H 124/36 L 96 09/07/25 08:00 97 Nasal Cannula 1 09/07/25 05:29 97.9 F 66 20 151/41 H 97 09/07/25 01:40 65 18 09/07/25 01:32 66 18 09/06/25 22:00 97.9 F 64 20 132/47 L 95 09/06/25 21:12 68 09/06/25 20:09 69 20 09/06/25 20:01 94 Nasal Cannula 1 09/06/25 20:00 97 Nasal Cannula 1 09/06/25 19:59 68 20 09/06/25 14:39 65 20 Exam 2 Narrative: GENERAL APPEARANCE: elderly and large female in no acute distress HEENT: normocephalic, atraumatic, normal conjunctiva and sclera, nares patient NECK: no lymphadenopathy, thyromegaly, or JVD MOUTH: normal lips, teeth, and gums CARDIOVASCULAR: RRR, normal S1 and S2, no rub RESPIRATORY: clear anteriorly ABDOMEN: soft, nontender, nondistended, positive bowel sounds present EXTREMITIES: no evidence of cyanosis, clubbing, or edema NEUROLOGICAL: alert and oriented x 3; CN II - XII intact bilaterally; no focal deficits noted Results Lab Results 09/10/25 05:43 09/10/25 05:43 Lab results: Most recent lab results Calcium 7.6 mg/dL (8.4-10.2) L 09/07/25 05:27 Magnesium 2.5 mg/dL (1.6-2.3) H 09/07/25 05:27
--- NOTE | 2025-09-07 13:40 | PCOTNOTE ---
Patient refused to participate in any activities this afternoon. Patient verbalizes she feels horrible, not doing anything today.
--- NOTE | 2025-09-07 13:51 | PCPTNOTE ---
Attempted to see patient for PT, however patient refused. Patient not wanting to do any PT this date.
--- NOTE | 2025-09-07 17:21 | P.PNINF_ITS ---
Progress Note: A&P Assessment and Plan (1) Pneumonia: Qualifiers: Laterality: bilateral Lung location: lower lobe of lung Pneumonia type: due to unspecified organism Qualified Code(s): J18.9 - Pneumonia, unspecified organism Code(s): J18.9 - Pneumonia, unspecified organism Status: Acute Assessment and Plan: 1. acute respiratory failure--better 2. pneumonia in assisted living facility; MRSA nares neg 3. heart failure 4. former smoker, baseline on no o2 5. CAD 6. CKD 7. HTN 8. anaphylaxis to azithromycin, erythromycin, sulfa 9. rash to levaquin 10.SOB with cephalosporins 11. New fever--resolved RECOMMENDAITONS: continue aztreonam (day5) add doxycycline IV (day3) blood cxs NGTD wean o2 as able d/w pharmacy staff Pt was seen via video telehealth consultation with the assistance of staff. Chart, data, and patient info independently reviewed. Pt was located at [facility] while I was located in my [place] office. Received verbal consent from patient. (2) Acute exacerbation of CHF (congestive heart failure): Qualifiers: Heart failure type: diastolic Qualified Code(s): I50.33 - Acute on c hronic diastolic (congestive) heart failure Code(s): I50.9 - Heart failure, unspecified Status: Acute (3) Acute hypoxic respiratory failure: Code(s): J96.01 - Acute respiratory failure with hypoxia Status: Acute Subjective Date/time seen: 09/07/25 17:21 Interval history: no fever no leukocytosis breathing better took O2 off as having nose bleed Exam Narrative: NAD, on room air, non-toxic Objective Data Vital Signs Vital Signs: Vital Signs - 24 hr 09/06/25 19:59 09/06/25 20:00 09/06/25 20:01 Temperature Pulse Rate 68 Respiratory Rate 20 Blood Pressure Pulse Oximetry 97 94 Oxygen Delivery Nasal Cannula Nasal Cannula Oxygen Flow Rate 1 1 09/06/25 20:09 09/06/25 21:12 09/06/25 22:00 Temperature 97.9 F Pulse Rate 69 68 64 Respiratory Rate 20 20 Blood Pressure 132/47 L Pulse Oximetry 95 Oxygen Delivery Oxygen Flow Rate 09/07/25 01:32 09/07/25 01:40 09/07/25 05:29 Temperature 97.9 F Pulse Rate 66 65 66 Respiratory Rate 18 18 20 Blood Pressure 151/41 H Pulse Oximetry 97 Oxygen Delivery Oxygen Flow Rate 09/07/25 08:00 09/07/25 13:48 Temperature 97.9 F Pulse Rate 63 Respiratory Rate 22 H Blood Pressure 124/36 L Pulse Oximetry 97 96 Oxygen Delivery Nasal Cannula Oxygen Flow Rate 1 Intake/Output Intake/Output: Intake & Output 09/04/25 09/05/25 09/06/25 09/07/25 23:59 23:59 23:59 23:59 Intake Total 079 109 2757 1970 Output Total 300 200 100 950 Balance 906 921 7509 1020 Meds/Results Medications: Active Medications Generic Name Dose Route Start Last Admin Trade Name Freq PRN Reason Stop Dose Admin Acetaminophen 650 mg 09/03/25 00:43 09/06/25 18:02 Acetaminophen 325 Mg Tablet PO 650 mg Q4H PRN Administration Mild Pain (1-3) or Fever Hydrocodone Bitart/Acetaminophen 1 tab 09/03/25 09:00 09/07/25 09:22 Hydrocodone/Acetaminophen (*Crx) 7.5-325 Mg Tablet PO 1 tab Q12HR VIELKA Administration Albuterol/Ipratropium 3 ml 09/05/25 14:00 09/07/25 14:29 Ipratropium 0.5 Mg/Albuterol Sulfate 2.5 Mg (Base) Ampul.Neb 3 Ml INHALATION 3 ml Q6HRT VIELKA Administration Amlodipine Besylate 10 mg 09/03/25 09:00 09/07/25 09:22 Amlodipine Besylate 10 Mg Tablet PO 10 mg DAILY VIELKA Administration Atenolol 50 mg 09/03/25 09:00 09/07/25 09:22 Atenolol 50 Mg Tablet PO 50 mg QAM VIELKA Administration Atenolol 100 mg 09/03/25 21:00 09/06/25 21:12 Atenolol 50 Mg Tablet PO 100 mg QHS VIELKA Administration Clopidogrel Bisulfate 75 mg 09/03/25 09:00 09/07/25 09:22 Clopidogrel Bisulfate 75 Mg Tablet PO 75 mg DAILY VIELKA Administration Dextrose 12.5 gm 09/03/25 00:49 Dextrose 50% 25 Gm/50 Ml Syringe IV PUSH PRN PRN Hypoglycemia Protocol Diazepam 5 mg 09/03/25 05:54 Diazepam (*Crx) 5 Mg Tablet PO DAILY PRN Anxiety Doxycycline Hyclate 100 mg 09/06/25 21:00 09/07/25 09:22 Doxycycline Hyclate 100 Mg Tablet PO 100 mg Q12HR VIELKA Administration Furosemide 40 mg 09/04/25 09:00 Furosemide 40 Mg Tablet PO On Hold: 09/04/25 09:00 DAILY VIELKA Glucagon 1 mg 09/03/25 00:49 Glucagon For Inj 1 Mg Vial IM PRN PRN Hypoglycemia Protocol Glucose 15 gm 09/03/25 00:49 Glucose Oral Gel 15 Gm Of Glucse In 37.5 Gm Tube PO PRN PRN Hypoglycemia Protocol Guaifenesin 600 mg 09/05/25 11:00 09/07/25 09:22 Guaifenesin 12 Hr 600 Mg Tabcr PO 600 mg Q12HR VIELKA Administration Heparin Sodium (Porcine) 5,000 units 09/03/25 09:00 09/07/25 09:22 Heparin Sodium 5,000 Units/Ml Vial SUB-Q 5,000 units Q12HR VIELKA Administration Hydralazine HCl 25 mg 09/04/25 09:00 09/07/25 09:22 Hydralazine Hcl 25 Mg Tablet PO 25 mg Q12HR VIELKA Administration Hydrochlorothiazide 12.5 mg 09/03/25 09:00 09/07/25 09:22 Hydrochlorothiazide 12.5 Mg Capsule PO 12.5 mg QAM VIELKA Administration Dextrose 1,000 mls @ 100 mls/hr 09/03/25 00:49 Dextrose 5% 1,000 Ml IVPB PRN PRN Hypoglycemia Protocol Aztreonam 2 gm/ Sodium 100 mls @ 200 mls/hr 09/05/25 21:00 09/07/25 09:23 Chloride IVPB 200 mls/hr Q12HR VIELKA Administration Lidocaine 1 patch 09/03/25 05:54 Lidocaine 5% Patch TOPICAL DAILY PRN Pain Lisinopril 20 mg 09/03/25 09:00 09/07/25 09:22 Lisinopril 20 Mg Tablet PO 20 mg QAM VIELKA Administration Nitroglycerin 0.4 mg 09/03/25 05:58 Nitroglycerin Sl 0.4 Mg Tablet SUBLINGUAL Q5M PRN Angina Ondansetron HCl 4 mg 09/03/25 00:43 Ondansetron Inj 4 Mg/2 Ml Vial IV PUSH Q4H PRN Nausea Pantoprazole Sodium 40 mg 09/03/25 09:00 09/07/25 09:22 Pantoprazole 40 Mg Tablet PO 40 mg QAM VIELKA Administration Potassium Chloride 20 meq 09/03/25 09:00 09/07/25 09:22 Potassium Chloride 20 Meq Er Tablet PO 20 meq DAILY VIELKA Administration Psyllium Hydrophilic Mucilloid 1 packet 09/03/25 09:00 09/07/25 09:23 Psyllium Sugar Free Powder Packet PO 1 packet DAILY VIELKA Administration Radiology Results: ITS Impressions Chest CTA 09/03/25 08:41 IMPRESSION: 1. No pulmonary embolus. Sensitivity is moderately decreased by motion artifact. 2. Diffuse lung disease, consistent with pulmonary edema and/or pneumonia. 3. Small pleural effusions. Chest X-Ray 09/05/25 14:53 IMPRESSION: 1. No acute cardiopulmonary findings given portable technique. Labs Labs: Laboratory Results - last 24 hr 09/07/25 05:27 WBC 8.8 RBC 2.71 L Hgb 8.5 L Hct 27.1 L MCV 100.0 MCH 31.4 MCHC 31.4 L RDW 13.4 Plt Count 230 MPV 11.3 H Sodium 131 L Potassium 4.5 Chloride 105 Carbon Dioxide 18 L Anion Gap 8 BUN 68 H Creatinine 1.93 H Estim Creat Clear Calc 23 Estimated GFR 25 L Glucose 94 Calcium 7.6 L Magnesium 2.5 H
[2025-09-08] VITALS (7 sets, daily range): BP systolic 125–134; BP diastolic 36–44; PULSE 60–87; RESP 12–18; TEMP 36.5–36.9; O2SAT 87–100
[2025-09-08 05:46] LABS: Hematocrit 27.5 % (37.0-47.0); Hemoglobin 8.5 g/dL (12.0-15.0); Mean Corpuscular HGB Conc 30.9 g/dl (32-36); Mean Corpuscular Hemoglobin 31.0 pg (26-34); Mean Corpuscular Volume 100.4 fl (80-100); Platelet Count Result 255 k/mm3 (150-375); Red Blood Count 2.74 M/mm3 (4.2-5.4); White Blood Count 10.0 K/mm3 (4.5-10.0)
[2025-09-08 06:10] LABS: Anion Gap 9 mmol/L (4-12); Blood Urea Nitrogen 73 mg/dL (7-17); Calcium 8.1 mg/dL (8.4-10.2); Carbon Dioxide 17 mmol/L (22-30); Chloride 107 mmol/L (98-107); Estimated CRCL calculation 23 ml/min; Estimated Glomerular Filt Rate 25; Glucose 96 mg/dL (65-110); Magnesium 2.4 mg/dL (1.6-2.3); Potassium 4.7 mmol/L (3.4-5.0); Sodium 133 mmol/L (137-145)
--- NOTE | 2025-09-08 08:47 | PCOTNOTE ---
Attempted to see Patient at this time. Patient stated, it's to early, I just finished breakfast, no doctor care about the Left arm, nothing is being done about it. Will try back this afternoon.
[2025-09-08] MEDS: PANTOPRAZOLE 40 MG TABLET PO (09:45)
[2025-09-08] MEDS: CLOPIDOGREL BISULFATE 75 MG TABLET PO (09:45)
[2025-09-08] MEDS: POTASSIUM CHLORIDE 20 MEQ ER TABLET PO (09:45)
[2025-09-08] MEDS: HYDROcodone/acetaminophen (*CRX) 7.5-325 MG TABLET 1 TAB PO ×2 (09:46→20:46)
[2025-09-08] MEDS: guaiFENesin 12 HR 600 MG TABCR PO ×2 (09:46→20:46)
[2025-09-08] MEDS: DOXYCYCLINE HYCLATE 100 MG TABLET PO ×2 (09:46→20:46)
[2025-09-08] MEDS: AZTREONAM 2 GM in SODIUM CHLORIDE 0.9% IV 100 ML IVPB ×2 (09:46→20:45)
--- NOTE | 2025-09-08 12:15 | P.PNIM_ITS ---
Progress Note: A&P Assessment and Plan (1) Acute hypoxic respiratory failure: Code(s): J96.01 - Acute respiratory failure with hypoxia Status: Acute Assessment and Plan: Chest x-ray shows patchy bilateral lower lobe opacities may represent pulmonary edema Chest CT pending Patient met sepsis criteria with leukocytosis and mild tachypnea Due to CHF recommend gentle fluid resuscitation Continue aztreonam Continue linezolid Continue Lasix Quad screen negative Baseline room air Currently on 2 L Nasal MRSA negative (2) Acute exacerbation of CHF (congestive heart failure): Qualifiers: Heart failure type: diastolic Qualified Code(s): I50.33 - Acute on chronic diastolic (congestive) heart failure Code(s): I50.9 - Heart failure, unspecified Status: Acute Assessment and Plan: Echocardiogram pending Prior echocardiogram from 2022 demonstrating diastolic dysfunction Elevated troponin BNP 10,200 strict I&O's and daily weights Possible demand ischemia History of 3 cardiac stents Continue lisinopril hydrochlorothiazide, atenolol and Norvasc (3) Pneumonia: Qualifiers: Laterality: bilateral Lung location: lower lobe of lung Pneumonia type: due to unspecified organism Qualified Code(s): J18.9 - Pneumonia, unspecified organism Code(s): J18.9 - Pneumonia, unspecified organism Status: Acute Assessment and Plan: Same as above (4) Bilateral pleural effusion: Code(s): J90 - Pleural effusion, not elsewhere classified Status: Acute Assessment and Plan: Pending CT results Lasix 40 mg IV b.i.d. (5) Elevated troponin: Code(s): R79.89 - Other specified abnormal findings of blood chemistry Status: Acute Assessment and Plan: Possible demand ischemia Cardiology consulted and appreciate recommendations (6) Anxiety: Code(s): F41.9 - Anxiety disorder, unspecified Status: Acute Assessment and Plan: After evaluation will consider BuSpar Diazepam 5 mg p.r.n. anxiety home medications Plan 85 y/o female presented with acute dyspnea seen by the case assembler and suspect 2/2 multifactors with pneumonia and CHF with elevated BNP of 10,200, patient is being treated with Aztreonam, zithromax and Zyvox. and being diuresed with IV lasix, patient clinical symptoms are improving as patient was able to ambulate in the hallways without any difficulty and will repeat chest x-ray to further evaluate pneumonia. patient remains clinically stable. today patient stats she feels tired and her legs hurting and does not want to walk, or work with PT, patient is wheezing and Scr is rising and currently not on Lasix, to further evaluate CXR was done which did not show any acute cardiopulmonary findings given portable technique. will continue to monitor, Patient Scr is persisting, started the patient on IVF there is slight improvement in her Scr however her urine put is poor, consulted solar energy engineer for further recommendation to follow. patient with pneumonia blood culture no growth so far, seen by ID recommended to [facility], again patient is refusing to get out bed and not participating with PT. patient encourage as her OA will get worse. Subjective Date/time seen: 09/08/25 12:15 Interval history: 85 y/o female presented with acute dyspnea seen by the case assembler and suspect 2/2 multifactors with pneumonia and CHF with elevated BNP of 10,200, patient is being treated with Aztreonam, zithromax and Zyvox. and being diuresed with IV lasix, patient clinical symptoms are improving as patient was able to ambulate in the hallways without any difficulty and will repeat chest x-ray to further evaluate pneumonia. patient remains clinically stable. today patient stats she feels tired and her legs hurting and does not want to walk, or work with PT, patient is wheezing and Scr is rising and currently not on Lasix, to further evaluate CXR was done which did not show any acute cardiopulmonary findings given portable technique. will continue to monitor, Patient Scr is persisting, started the patient on IVF there is slight improvement in her Scr however her urine put is poor, consulted solar energy engineer for further recommendation to follow. patient with pneumonia blood culture no growth so far, seen by ID recommended to [facility], again patient is refusing to get out bed and not participating with PT. patient encourage as her OA will get worse. Review of Systems Review of Systems: 12 systems were reviewed with pertinent positives and negatives per HPI. Except as documented in the HPI, all other systems were reviewed and are negative. She has chronic alopecia and wears a wig. She has upper and lower dentures in place. She has chronic knee pain and states that she needs knee replacement surgery but she is not a candidate. She has scars of the right knee due to prior trauma and ORIF. Exam Narrative: Morbidly obese Patient is comfortable, NAD HEENT: eyes are clear and none icteric LUNGS:CTA HEART: RR S1S2 ABD: BS+, Soft and nontender Lower extremities: no edema SKIN: nonjaundiced Neuro: grossly intact. Objective Data Vital Signs Vital Signs: Vital Signs - 24 hr 09/07/25 13:48 09/07/25 19:38 09/07/25 20:50 Temperature 36.6 C Pulse Rate 63 63 68 Respiratory Rate 22 H 20 Blood Pressure 124/36 L Pulse Oximetry 96 94 Oxygen Delivery Nasal Cannula Oxygen Flow Rate 1 Fraction of Inspired Oxygen 24 09/07/25 21:04 09/07/25 22:00 09/07/25 23:42 Temperature 36.6 C Pulse Rate 60 Respiratory Rate 18 Blood Pressure 99/71 L 119/45 L Pulse Oximetry 94 95 Oxygen Delivery Nasal Cannula Oxygen Flow Rate 1 Fraction of Inspired Oxygen 09/08/25 06:00 09/08/25 08:00 Temperature 36.5 C Pulse Rate 62 Respiratory Rate 16 Blood Pressure 134/44 L Pulse Oximetry 96 94 Oxygen Delivery Nasal Cannula Oxygen Flow Rate 1 Fraction of Inspired Oxygen Intake/Output Intake/Output: Intake & Output 09/05/25 09/06/25 09/07/25 09/08/25 23:59 23:59 23:59 23:59 Intake Total 650 2070 2290 320 Output Total 200 100 950 400 Balance 450 1970 1340 -80 Meds/Results Medications: Active Medications Generic Name Dose Route Start Last Admin Trade Name Freq PRN Reason Stop Dose Admin Acetaminophen 650 mg 09/03/25 00:43 09/06/25 18:02 Acetaminophen 325 Mg Tablet PO 650 mg Q4H PRN Administration Mild Pain (1-3) or Fever Hydrocodone Bitart/Acetaminophen 1 tab 09/03/25 09:00 09/08/25 09:46 Hydrocodone/Acetaminophen (*Crx) 7.5-325 Mg Tablet PO 1 tab Q12HR VIELKA Administration Albuterol/Ipratropium 3 ml 09/05/25 14:00 09/08/25 08:03 Ipratropium 0.5 Mg/Albuterol Sulfate 2.5 Mg (Base) Ampul.Neb 3 Ml INHALATION Not Given Q6HRT VIELKA Amlodipine Besylate 10 mg 09/03/25 09:00 09/08/25 09:46 Amlodipine Besylate 10 Mg Tablet PO 10 mg DAILY VIELKA Administration Atenolol 50 mg 09/03/25 09:00 09/08/25 09:46 Atenolol 50 Mg Tablet PO 50 mg QAM VIELKA Administration Atenolol 100 mg 09/03/25 21:00 09/07/25 20:50 Atenolol 50 Mg Tablet PO 100 mg QHS VIELKA Administration Clopidogrel Bisulfate 75 mg 09/03/25 09:00 09/08/25 09:45 Clopidogrel Bisulfate 75 Mg Tablet PO 75 mg DAILY VIELKA Administration Dextrose 12.5 gm 09/03/25 00:49 Dextrose 50% 25 Gm/50 Ml Syringe IV PUSH PRN PRN Hypoglycemia Protocol Diazepam 5 mg 09/03/25 05:54 Diazepam (*Crx) 5 Mg Tablet PO DAILY PRN Anxiety Doxycycline Hyclate 100 mg 09/06/25 21:00 09/08/25 09:46 Doxycycline Hyclate 100 Mg Tablet PO 100 mg Q12HR VIELKA Administration Furosemide 40 mg 09/04/25 09:00 Furosemide 40 Mg Tablet PO On Hold: 09/04/25 09:00 DAILY VIELKA Glucagon 1 mg 09/03/25 00:49 Glucagon For Inj 1 Mg Vial IM PRN PRN Hypoglycemia Protocol Glucose 15 gm 09/03/25 00:49 Glucose Oral Gel 15 Gm Of Glucse In 37.5 Gm Tube PO PRN PRN Hypoglycemia Protocol Guaifenesin 600 mg 09/05/25 11:00 09/08/25 09:46 Guaifenesin 12 Hr 600 Mg Tabcr PO 600 mg Q12HR VIELKA Administration Heparin Sodium (Porcine) 5,000 units 09/03/25 09:00 09/08/25 09:46 Heparin Sodium 5,000 Units/Ml Vial SUB-Q 5,000 units Q12HR VIELKA Administration Hydralazine HCl 25 mg 09/04/25 09:00 09/08/25 09:46 Hydralazine Hcl 25 Mg Tablet PO 25 mg Q12HR VIELKA Administration Hydrochlorothiazide 12.5 mg 09/03/25 09:00 09/08/25 09:46 Hydrochlorothiazide 12.5 Mg Capsule PO 12.5 mg QAM VIELKA Administration Dextrose 1,000 mls @ 100 mls/hr 09/03/25 00:49 Dextrose 5% 1,000 Ml IVPB PRN PRN Hypoglycemia Protocol Aztreonam 2 gm/ Sodium 100 mls @ 200 mls/hr 09/05/25 21:00 09/08/25 09:46 Chloride IVPB 200 mls/hr Q12HR VIELKA Administration Lidocaine 1 patch 09/03/25 05:54 Lidocaine 5% Patch TOPICAL DAILY PRN Pain Lisinopril 20 mg 09/03/25 09:00 09/08/25 09:46 Lisinopril 20 Mg Tablet PO 20 mg QAM VIELKA Administration Nitroglycerin 0.4 mg 09/03/25 05:58 Nitroglycerin Sl 0.4 Mg Tablet SUBLINGUAL Q5M PRN Angina Ondansetron HCl 4 mg 09/03/25 00:43 Ondansetron Inj 4 Mg/2 Ml Vial IV PUSH Q4H PRN Nausea Pantoprazole Sodium 40 mg 09/03/25 09:00 09/08/25 09:45 Pantoprazole 40 Mg Tablet PO 40 mg QAM [facility] Administration Potassium Chloride 20 meq 09/03/25 09:00 09/08/25 09:45 Potassium Chloride 20 Meq Er Tablet PO 20 meq DAILY VIELKA Administration Psyllium Hydrophilic Mucilloid 1 packet 09/03/25 09:00 09/08/25 09:47 Psyllium Sugar Free Powder Packet PO Not Given DAILY [facility] Radiology Results: ITS Impressions Chest CTA 09/03/25 08:41 IMPRESSION: 1. No pulmonary embolus. Sensitivity is moderately decreased by motion artifact. 2. Diffuse lung disease, consistent with pulmonary edema and/or pneumonia. 3. Small pleural effusions. Chest X-Ray 09/05/25 14:53 IMPRESSION: 1. No acute cardiopulmonary findings given portable technique. Labs Labs: Laboratory Results - last 24 hr 09/08/25 05:33 WBC 10.0 RBC 2.74 L Hgb 8.5 L Hct 27.5 L MCV 100.4 H MCH 31.0 MCHC 30.9 L RDW 13.6 Plt Count 255 MPV 10.7 H Sodium 133 L Potassium 4.7 Chloride 107 Carbon Dioxide 17 L Anion Gap 9 BUN 73 H Creatinine 1.93 H Estim Creat Clear Calc 23 Estimated GFR 25 L Glucose 96 Calcium 8.1 L Magnesium 2.4 H Quality VTE Prophylaxis VTE prophylaxis: pharmacologic ordered (Heparin 5000 units subQ q.12 hours)
--- NOTE | 2025-09-08 14:23 | P.PNNP_ITS ---
Progress Note: A&P Assessment and Plan (1) Acute kidney injury: Code(s): N17.9 - Acute kidney failure, unspecified Status: Acute Assessment and Plan: * as noted by labs on 09/04 * at baseline on admission * suspect multifactorial etiology: * contrast exposure (CTA chest on 09/03) * CHF * need for diuretics * infection (pneumonia) * concurrent GI-I and HCTZ on admission * hypoxia * relative anemia * other(?) * diuretics on hold * holding lisinopril/HCTZ/potassium * urine studies and renal ultrasound pending * follow trend of repeat labs and UOP (2) Stage 3b chronic kidney disease: Code(s): N18.32 - Chronic kidney disease, stage 3b Status: Chronic Assessment and Plan: * baseline creatinine was running around 1.2 - 1.5mg/dL in the last few years * however, cannot discount a degree/element of disease progression * presumably due to hypertension, vascular disease and age-related change (3) Acute hypoxic respiratory failure: Code(s): J96.01 - Acute respiratory failure with hypoxia Status: Acute Assessment and Plan: * as noted on presentation * imaging noted: * CXR with bilateral lobe opacities (which may represent pulmonary edema) * Chest CT with diffuse lung disease, consistent with pulmonary edema and/or pneumonia.and small pleural effusions * viral testing for influenza/RSV/COVD negative * continue treatment with antibiotic and diuresis * continue supportive therapy (4) Acute exacerbation of CHF (congestive heart failure): Qualifiers: Heart failure type: diastolic Qualified Code(s): I50.33 - Acute on chronic diastolic (congestive) heart failure Code(s): I50.9 - Heart failure, unspecified Status: Acute Assessment and Plan: * Echo from 2022 with noted diastolic dysfunction * repeat Echo (09/03) noted: * left ventricular systolic function is normal, estimated at 60 - 65% * left ventricular diastolicfunction is normal * mild mitral regurgitation * trivial aortic regurgitation * mild pulmonic regurgitation * known history of CAD * BNP 10,200 * diuresis on hold -- plan to resume as kidney function improves * follow I&O's and daily weights (5) Pneumonia: Qualifiers: Laterality: bilateral Lung location: lower lobe of lung Pneumonia type: due to unspecified organism Qualified Code(s): J18.9 - Pneumonia, unspecified organism Code(s): J18.9 - Pneumonia, unspecified organism Status: Acute Assessment and Plan: * as suggested by admission imaging * felt to be etiology of #3 more than CHF * follow culture data * on antibiotics (6) Anemia: Code(s): D64.9 - Anemia, unspecified Status: Acute Assessment and Plan: * likely due to AMAURY, CKD, and acute illness * follow trend of H/H * consider BAO while hospitalized (7) HTN (hypertension): Qualifiers: Hypertension type: unspecified Qualified Code(s): I10 - Essential (primary) hypertension Code(s): I10 - Essential (primary) hypertension Status: Chronic Assessment and Plan: * BP on the soft side * holding GI-I and diuretics * other BP medications with parameters * follow trend of hemodynamics (8) Generalized weakness: Code(s): R53.1 - Weakness Status: Acute Assessment and Plan: * likely due to acute illness * PT/OT as tolerated Will continue to follow. L Subjective Date/time seen: 09/08/25 14:23 Interval history: Follow-up for acute kidney injury on chronic kidney disease. Renal function/creatinine remains unchanged in the last 24 hours; however, respiratory status/breathing seems to be doing somewhat better; worried that she is having difficulty getting up/ambulating at this time. Exam 2 Narrative: General: elderly but WD/WN female in NAD Heart: normal S1 and S2; no rub Lungs: clear anteriorly; decreased at bases Abdomen: soft, nontender, nondistended, positive bowel sounds Extremities: no cyanosis or clubbing; trace edema Skin: warm and dry Objective Data Vital Signs Vital Signs: Vital Signs Temp Pulse Resp BP Pulse Ox O2 Del Method O2 Flow Rate 09/08/25 14:00 60 12 125/44 L 100 09/08/25 08:00 94 Nasal Cannula 1 09/08/25 06:00 97.7 F 62 16 134/44 L 96 09/07/25 23:42 119/45 L 09/07/25 22:00 97.8 F 60 18 99/71 L 95 09/07/25 21:04 94 Nasal Cannula 1 09/07/25 20:50 68 09/07/25 19:38 63 20 94 Nasal Cannula 1 Intake/Output Intake/Output: Intake & Output 09/05/25 09/06/25 09/07/2525 23:59 23:59 23:59 23:59 Intake Total 650 2070 2290 440 Output Total 200 100 950 400 Balance 450 1970 1340 40 Meds/Results Medications: Active Medications Generic Name Dose Route Start Last Admin Trade Name Freq PRN Reason Stop Dose Admin Acetaminophen 650 mg 09/03/25 00:43 09/06/25 18:02 Acetaminophen 325 Mg Tablet PO 650 mg Q4H PRN Administration Mild Pain (1-3) or Fever Hydrocodone Bitart/Acetaminophen 1 tab 09/03/25 09:00 09/08/25 09:46 Hydrocodone/Acetaminophen (*Crx) 7.5-325 Mg Tablet PO 1 tab Q12HR VIELKA Administration Albuterol/Ipratropium 3 ml 09/05/25 14:00 09/08/25 15:12 Ipratropium 0.5 Mg/Albuterol Sulfate 2.5 Mg (Base) Ampul.Neb 3 Ml INHALATION Not Given Q6HRT VIELKA Amlodipine Besylate 10 mg 09/03/25 09:00 09/08/25 09:46 Amlodipine Besylate 10 Mg Tablet PO 10 mg DAILY VIELKA Administration Atenolol 50 mg 09/03/25 09:00 09/08/25 09:46 Atenolol 50 Mg Tablet PO 50 mg QAM VIELKA Administration Atenolol 100 mg 09/03/25 21:00 09/07/25 20:50 Atenolol 50 Mg Tablet PO 100 mg QHS VIELKA Administration Clopidogrel Bisulfate 75 mg 09/03/25 09:00 09/08/25 09:45 Clopidogrel Bisulfate 75 Mg Tablet PO 75 mg DAILY VIELKA Administration Dextrose 12.5 gm 09/03/25 00:49 Dextrose 50% 25 Gm/50 Ml Syringe IV PUSH PRN PRN Hypoglycemia Protocol Diazepam 5 mg 09/03/25 05:54 Diazepam (*Crx) 5 Mg Tablet PO DAILY PRN Anxiety Doxycycline Hyclate 100 mg 09/06/25 21:00 09/08/25 09:46 Doxycycline Hyclate 100 Mg Tablet PO 09/12/25 09:01 100 mg Q12HR VIELKA Administration Furosemide 40 mg 09/04/25 09:00 Furosemide 40 Mg Tablet PO On Hold: 09/04/25 09:00 DAILY VIELKA Glucagon 1 mg 09/03/25 00:49 Glucagon For Inj 1 Mg Vial IM PRN PRN Hypoglycemia Protocol Glucose 15 gm 09/03/25 00:49 Glucose Oral Gel 15 Gm Of Glucse In 37.5 Gm Tube PO PRN PRN Hypoglycemia Protocol Guaifenesin 600 mg 09/05/25 11:00 09/08/25 09:46 Guaifenesin 12 Hr 600 Mg Tabcr PO 600 mg Q12HR VIELKA Administration Heparin Sodium (Porcine) 5,000 units 09/03/25 09:00 09/08/25 09:46 Heparin Sodium 5,000 Units/Ml Vial SUB-Q 5,000 units Q12HR VIELKA Administration Hydralazine HCl 25 mg 09/04/25 09:00 09/08/25 09:46 Hydralazine Hcl 25 Mg Tablet PO 25 mg Q12HR VIELKA Administration Hydrochlorothiazide 12.5 mg 09/03/25 09:00 09/08/25 09:46 Hydrochlorothiazide 12.5 Mg Capsule PO 12.5 mg QAM VIELKA Administration Dextrose 1,000 mls @ 100 mls/hr 09/03/25 00:49 Dextrose 5% 1,000 Ml IVPB PRN PRN Hypoglycemia Protocol Aztreonam 2 gm/ Sodium 100 mls @ 200 mls/hr 09/05/25 21:00 09/08/25 09:46 Chloride IVPB 09/09/25 23:59 200 mls/hr Q12HR VIELKA Administration Lidocaine 1 patch 09/03/25 05:54 Lidocaine 5% Patch TOPICAL DAILY PRN Pain Lisinopril 20 mg 09/03/25 09:00 09/08/25 09:46 Lisinopril 20 Mg Tablet PO 20 mg QAM VIELKA Administration Nitroglycerin 0.4 mg 09/03/25 05:58 Nitroglycerin Sl 0.4 Mg Tablet SUBLINGUAL Q5M PRN Angina Ondansetron HCl 4 mg 09/03/25 00:43 Ondansetron Inj 4 Mg/2 Ml Vial IV PUSH Q4H PRN Nausea Pantoprazole Sodium 40 mg 09/03/25 09:00 09/08/25 09:45 Pantoprazole 40 Mg Tablet PO 40 mg QAM VIELKA Administration Potassium Chloride 20 meq 09/03/25 09:00 09/08/25 09:45 Potassium Chloride 20 Meq Er Tablet PO 20 meq DAILY VIELKA Administration Psyllium Hydrophilic Mucilloid 1 packet 09/03/25 09:00 09/08/25 09:47 Psyllium Sugar Free Powder Packet PO Not Given DAILY VIELKA Radiology Results: ITS Impressions Chest CTA 09/03/25 08:41 IMPRESSION: 1. No pulmonary embolus. Sensitivity is moderately decreased by motion artifact. 2. Diffuse lung disease, consistent with pulmonary edema and/or pneumonia. 3. Small pleural effusions. Chest X-Ray 09/05/25 14:53 IMPRESSION: 1. No acute cardiopulmonary findings given portable technique. Labs Labs: Laboratory Tests 09/08/25 05:33 09/08/25 05:33 Calcium 8.1 L Magnesium 2.4 H Microbiology 09/06/25 20:27 Blood Blood Culture - Preliminary 09/06/25 20:28 Blood Blood Culture - Preliminary
--- NOTE | 2025-09-08 14:29 | WPDINFPN2 ---
Progress Note: A&P Assessment and Plan (1) Pneumonia: Qualifiers: Laterality: bilateral Lung location: lower lobe of lung Pneumonia type: due to unspecified organism Qualified Code(s): J18.9 - Pneumonia, unspecified organism Code(s): J18.9 - Pneumonia, unspecified organism Status: Acute Assessment and Plan: 1. acute respiratory failure--better 2. pneumonia in assisted living facility; MRSA nares neg 3. heart failure 4. former smoker, baseline on no o2 5. CAD 6. CKD 7. HTN 8. anaphylaxis to azithromycin, erythromycin, sulfa 9. rash to levaquin 10.SOB with cephalosporins 11. New fever--resolved RECOMMENDAITONS: continue aztreonam (day6 of 7) add doxycycline IV (day4 of 7) blood cxs NGTD wean o2 as able d/w pharmacy staff Pt was seen via video telehealth consultation with the assistance of staff. Chart, data, and patient info independently reviewed. Pt was located at [facility] while I was located in my [place] office. Received verbal consent from patient. (2) Acute exacerbation of CHF (congestive heart failure): Qualifiers: Heart failure type: diastolic Qualified Code(s): I50.33 - Acute on chronic diastolic (congestive) heart failure Code(s): I50.9 - Heart failure, unspecified Status: Acute (3) Acute hypoxic respiratory failure: Code(s): J96.01 - Acute respiratory failure with hypoxia Status: Acute Subjective Date/time seen: 09/08/25 14:29 Interval history: no fever no leukocytosis breathing much better c/o LUE difficulty--concerned can't get up Exam Narrative: NAD, no conversational dyspnea; on 1L O2, non-toxic LUE edenatous Objective Data Vital Signs Vital Signs: Vital Signs - 24 hr 09/07/25 19:38 09/07/25 20:50 09/07/25 21:04 Temperature Pulse Rate 63 68 Respiratory Rate 20 Blood Pressure Pulse Oximetry 94 94 Oxygen Delivery Nasal Cannula Nasal Cannula Oxygen Flow Rate 1 1 Fraction of Inspired Oxygen 24 09/07/25 22:00 09/07/25 23:42 09/08/25 06:00 Temperature 97.8 F 97.7 F Pulse Rate 60 62 Respiratory Rate 18 16 Blood Pressure 99/71 L 119/45 L 134/44 L Pulse Oximetry 95 96 Oxygen Delivery Oxygen Flow Rate Fraction of Inspired Oxygen 09/08/25 08:00 Temperature Pulse Rate Respiratory Rate Blood Pressure Pulse Oximetry 94 Oxygen Delivery Nasal Cannula Oxygen Flow Rate 1 Fraction of Inspired Oxygen Intake/Output Intake/Output: Intake & Output 09/05/25 09/06/25 09/07/25 09/08/25 23:59 23:59 23:59 23:59 Intake Total 650 2070 2290 320 Output Total 200 100 950 400 Balance 450 1970 1340 -80 Meds/Results Medications: Active Medications Generic Name Dose Route Start Last Admin Trade Name Freq PRN Reason Stop Dose Admin Acetaminophen 650 mg 09/03/25 00:43 09/06/25 18:02 Acetaminophen 325 Mg Tablet PO 650 mg Q4H PRN Administration Mild Pain (1-3) or Fever Hydrocodone Bitart/Acetaminophen 1 tab 09/03/25 09:00 09/08/25 09:46 Hydrocodone/Acetaminophen (*Crx) 7.5-325 Mg Tablet PO 1 tab Q12HR VIELKA Administration Albuterol/Ipratropium 3 ml 09/05/25 14:00 09/08/25 08:03 Ipratropium 0.5 Mg/Albuterol Sulfate 2.5 Mg (Base) Ampul.Neb 3 Ml INHALATION Not Given Q6HRT VIELKA Amlodipine Besylate 10 mg 09/03/25 09:00 09/08/25 09:46 Amlodipine Besylate 10 Mg Tablet PO 10 mg DAILY VIELKA Administration Atenolol 50 mg 09/03/25 09:00 09/08/25 09:46 Atenolol 50 Mg Tablet PO 50 mg QAM VIELKA Administration Atenolol 100 mg 09/03/25 21:00 09/07/25 20:50 Atenolol 50 Mg Tablet PO 100 mg QHS VIELKA Administration Clopidogrel Bisulfate 75 mg 09/03/25 09:00 09/08/25 09:45 Clopidogrel Bisulfate 75 Mg Tablet PO 75 mg DAILY VIELKA Administration Dextrose 12.5 gm 09/03/25 00:49 Dextrose 50% 25 Gm/50 Ml Syringe IV PUSH PRN PRN Hypoglycemia Protocol Diazepam 5 mg 09/03/25 05:54 Diazepam (*Crx) 5 Mg Tablet PO DAILY PRN Anxiety Doxycycline Hyclate 100 mg 09/06/25 21:00 09/08/25 09:46 Doxycycline Hyclate 100 Mg Tablet PO 09/12/25 09:01 100 mg Q12HR VIELKA Administration Furosemide 40 mg 09/04/25 09:00 Furosemide 40 Mg Tablet PO On Hold: 09/04/25 09:00 DAILY VIELKA Glucagon 1 mg 09/03/25 00:49 Glucagon For Inj 1 Mg Vial IM PRN PRN Hypoglycemia Protocol Glucose 15 gm 09/03/25 00:49 Glucose Oral Gel 15 Gm Of Glucse In 37.5 Gm Tube PO PRN PRN Hypoglycemia Protocol Guaifenesin 600 mg 09/05/25 11:00 09/08/25 09:46 Guaifenesin 12 Hr 600 Mg Tabcr PO 600 mg Q12HR VIELKA Administration Heparin Sodium (Porcine) 5,000 units 09/03/25 09:00 09/08/25 09:46 Heparin Sodium 5,000 Units/Ml Vial SUB-Q 5,000 units Q12HR VIELKA Administration Hydralazine HCl 25 mg 09/04/25 09:00 09/08/25 09:46 Hydralazine Hcl 25 Mg Tablet PO 25 mg Q12HR VIELKA Administration Hydrochlorothiazide 12.5 mg 09/03/25 09:00 09/08/25 09:46 Hydrochlorothiazide 12.5 Mg Capsule PO 12.5 mg QAM VIELKA Administration Dextrose 1,000 mls @ 100 mls/hr 09/03/25 00:49 Dextrose 5% 1,000 Ml IVPB PRN PRN Hypoglycemia Protocol Aztreonam 2 gm/ Sodium 100 mls @ 200 mls/hr 09/05/25 21:00 09/08/25 09:46 Chloride IVPB 09/09/25 23:59 200 mls/hr Q12HR VIELKA Administration Lidocaine 1 patch 09/03/25 05:54 Lidocaine 5% Patch TOPICAL DAILY PRN Pain Lisinopril 20 mg 09/03/25 09:00 09/08/25 09:46 Lisinopril 20 Mg Tablet PO 20 mg QAM VIELKA Administration Nitroglycerin 0.4 mg 09/03/25 05:58 Nitroglycerin Sl 0.4 Mg Tablet SUBLINGUAL Q5M PRN Angina Ondansetron HCl 4 mg 09/03/25 00:43 Ondansetron Inj 4 Mg/2 Ml Vial IV PUSH Q4H PRN Nausea Pantoprazole Sodium 40 mg 09/03/25 09:00 09/08/25 09:45 Pantoprazole 40 Mg Tablet PO 40 mg QAM VIELKA Administration Potassium Chloride 20 meq 09/03/25 09:00 09/08/25 09:45 Potassium Chloride 20 Meq Er Tablet PO 20 meq DAILY VIELKA Administration Psyllium Hydrophilic Mucilloid 1 packet 09/03/25 09:00 09/08/25 09:47 Psyllium Sugar Free Powder Packet PO Not Given DAILY VIELKA Radiology Results: ITS Impressions Chest CTA 09/03/25 08:41 IMPRESSION: 1. No pulmonary embolus. Sensitivity is moderately decreased by motion artifact. 2. Diffuse lung disease, consistent with pulmonary edema and/or pneumonia. 3. Small pleural effusions. Chest X-Ray 09/05/25 14:53 IMPRESSION: 1. No acute cardiopulmonary findings given portable technique. Labs Labs: Laboratory Results - last 24 hr 09/08/25 05:33 WBC 10.0 RBC 2.74 L Hgb 8.5 L Hct 27.5 L MCV 100.4 H MCH 31.0 MCHC 30.9 L RDW 13.6 Plt Count 255 MPV 10.7 H Sodium 133 L Potassium 4.7 Chloride 107 Carbon Dioxide 17 L Anion Gap 9 BUN 73 H Creatinine 1.93 H Estim Creat Clear Calc 23 Estimated GFR 25 L Glucose 96 Calcium 8.1 L Magnesium 2.4 H
--- NOTE | 2025-09-09 04:06 | PCRCNOTE ---
pt continues to refuse neb treatments; she stated that she feels better and no longer needs them.
[2025-09-09 05:00] VITALS: BP 125/35; PULSE 58; RESP 20; TEMP 36.5; O2SAT 97
[2025-09-09 06:21] LABS: Hematocrit 27.2 % (37.0-47.0); Hemoglobin 8.4 g/dL (12.0-15.0); Mean Corpuscular HGB Conc 30.9 g/dl (32-36); Mean Corpuscular Hemoglobin 30.9 pg (26-34); Mean Corpuscular Volume 100.0 fl (80-100); Platelet Count Result 283 k/mm3 (150-375); Red Blood Count 2.72 M/mm3 (4.2-5.4); White Blood Count 8.6 K/mm3 (4.5-10.0)
[2025-09-09 06:39] LABS: Anion Gap 7 mmol/L (4-12); Blood Urea Nitrogen 80 mg/dL (7-17); Calcium 8.4 mg/dL (8.4-10.2); Carbon Dioxide 19 mmol/L (22-30); Chloride 108 mmol/L (98-107); Estimated CRCL calculation 21 ml/min; Estimated Glomerular Filt Rate 22; Glucose 91 mg/dL (65-110); Magnesium 2.5 mg/dL (1.6-2.3); Potassium 4.9 mmol/L (3.4-5.0); Sodium 134 mmol/L (137-145)
--- NOTE | 2025-09-09 10:01 | P.PNNP_ITS ---
Progress Note: A&P Assessment and Plan (1) Acute kidney injury: Code(s): N17.9 - Acute kidney failure, unspecified Status: Acute Assessment and Plan: * as noted by labs on 09/04 * at baseline on admission * suspect multifactorial etiology: * contrast exposure (CTA chest on 09/03) * CHF * need for diuretics * infection (pneumonia) * concurrent GI-I and HCTZ on admission * hypoxia * relative anemia * other(?) * diuretics on hold * holding lisinopril/HCTZ/potassium * evaluation to date noted: * renal ultrasound w/o osbtruction * urine electrolytes prerenal * urine eosinophils negative * no significant proteinuria * follow trend of repeat labs and UOP (2) Stage 3b chronic kidney disease: Code(s): N18.32 - Chronic kidney disease, stage 3b Status: Chronic Assessment and Plan: * baseline creatinine was running around 1.2 - 1.5mg/dL in the last few years * however, cannot discount a degree/element of disease progression * presumably due to hypertension, vascular disease and age-related change (3) Acute hypoxic respiratory failure: Code(s): J96.01 - Acute respiratory failure with hypoxia Status: Acute Assessment and Plan: * as noted on presentation * imaging noted: * CXR with bilateral lobe opacities (which may represent pulmonary edema) * Chest CT with diffuse lung disease, consistent with pulmonary edema and/or pneumonia.and small pleural effusions * viral testing for influenza/RSV/COVD negative * continue treatment with antibiotic and diuresis * continue supportive therapy (4) Acute exacerbation of CHF (congestive heart failure): Qualifiers: Heart failure type: diastolic Qualified Code(s): I50.33 - Acute on chronic diastolic (congestive) heart failure Code(s): I50.9 - Heart failure, unspecified Status: Acute Assessment and Plan: * Echo from 2022 with noted diastolic dysfunction * repeat Echo (09/03) noted: * left ventricular systolic function is normal, estimated at 60 - 65% * left ventricular diastolicfunction is normal * mild mitral regurgitation * trivial aortic regurgitation * mild pulmonic regurgitation * known history of CAD * BNP 10,200 * diuresis on hold -- plan to resume as kidney function improves * follow I&O's and daily weights (5) Pneumonia: Qualifiers: Laterality: bilateral Lung location: lower lobe of lung Pneumonia type: due to unspecified organism Qualified Code(s): J18.9 - Pneumonia, unspecified organism Code(s): J18.9 - Pneumonia, unspecified organism Status: Acute Assessment and Plan: * as suggested by admission imaging * felt to be etiology of #3 more than CHF * follow culture data * on antibiotics (6) Anemia: Code(s): D64.9 - Anemia, unspecified Status: Acute Assessment and Plan: * likely due to AMAURY, CKD, and acute illness * follow trend of H/H * consider BAO while hospitalized (7) HTN (hypertension): Qualifiers: Hypertension type: unspecified Qualified Code(s): I10 - Essential (primary) hypertension Code(s): I10 - Essential (primary) hypertension Status: Chronic Assessment and Plan: * BP on the soft side * holding GI-I and diuretics * other BP medications with parameters * follow trend of hemodynamics (8) Generalized weakness: Code(s): R53.1 - Weakness Status: Acute Assessment and Plan: * likely due to acute illness * PT/OT as tolerated Will continue to follow. L Subjective Date/time seen: 09/09/25 10:01 Interval history: Follow-up for acute kidney injury/acute renal failure on chronic kidney disease. Renal function/creatinine a bit worse by recent labs but still making reasonable urine output; major complaint is that of significant pain/discomfort in her left arm/wrist area; reports stability if not improvement in her breathing/respiratory status (but SOB still present); no acute distress noted at the time of my visit. Exam 2 Narrative: General: elderly but WD/WN female in NAD Heart: normal S1 and S2; no rub Lungs: clear anteriorly; decreased at bases Abdomen: soft, nontender, nondistended, positive bowel sounds Extremities: no cyanosis or clubbing; trace edema Skin: warm and intact Objective Data Vital Signs Vital Signs: Vital Signs Temp Pulse Resp BP Pulse Ox O2 Del Method O2 Flow Rate 09/09/25 10:00 61 09/09/25 08:00 Room Air 09/09/25 05:00 97.7 F 58 L 20 125/35 L 97 09/08/25 20:31 98.4 F 61 18 125/36 L 98 09/08/25 20:25 87 L Room Air 09/08/25 19:55 96 Nasal Cannula 1 09/08/25 15:15 87 16 95 Nasal Cannula 1 Intake/Output Intake/Output: Intake & Output 09/06/25 09/07/25 09/08/25 09/09/25 23:59 23:59 23:59 23:59 Intake Total 2070 2290 1190 650 Output Total 100 950 800 300 Balance 1970 1340 390 350 Meds/Results Medications: Active Medications Generic Name Dose Route Start Last Admin Trade Name Freq PRN Reason Stop Dose Admin Acetaminophen 650 mg 09/03/25 00:43 09/06/25 18:02 Acetaminophen 325 Mg Tablet PO 650 mg Q4H PRN Administration Mild Pain (1-3) or Fever Hydrocodone Bitart/Acetaminophen 1 tab 09/03/25 09:00 09/09/25 10:19 Hydrocodone/Acetaminophen (*Crx) 7.5-325 Mg Tablet PO 1 tab Q12HR VIELKA Administration Albuterol/Ipratropium 3 ml 09/05/25 14:00 09/09/25 07:42 Ipratropium 0.5 Mg/Albuterol Sulfate 2.5 Mg (Base) Ampul.Neb 3 Ml INHALATION Not Given Q6HRT [facility] Amlodipine Besylate 10 mg 09/03/25 09:00 09/09/25 10:18 Amlodipine Besylate 10 Mg Tablet PO 10 mg DAILY VIELKA Administration Atenolol 50 mg 09/03/25 09:00 09/09/25 10:18 Atenolol 50 Mg Tablet PO 50 mg QAM VIELKA Administration Atenolol 100 mg 09/03/25 21:00 09/08/25 20:47 Atenolol 50 Mg Tablet PO 100 mg QHS VIELKA Administration Clopidogrel Bisulfate 75 mg 09/03/25 09:00 09/09/25 10:15 Clopidogrel Bisulfate 75 Mg Tablet PO 75 mg DAILY VIELKA Administration Dextrose 12.5 gm 09/03/25 00:49 Dextrose 50% 25 Gm/50 Ml Syringe IV PUSH PRN PRN Hypoglycemia Protocol Diazepam 5 mg 09/03/25 05:54 Diazepam (*Crx) 5 Mg Tablet PO DAILY PRN Anxiety Doxycycline Hyclate 100 mg 09/06/25 21:00 09/09/25 10:15 Doxycycline Hyclate 100 Mg Tablet PO 09/12/25 09:01 100 mg Q12HR VIELKA Administration Furosemide 40 mg 09/04/25 09:00 Furosemide 40 Mg Tablet PO On Hold: 09/04/25 09:00 DAILY VIELKA Glucagon 1 mg 09/03/25 00:49 Glucagon For Inj 1 Mg Vial IM PRN PRN Hypoglycemia Protocol Glucose 15 gm 09/03/25 00:49 Glucose Oral Gel 15 Gm Of Glucse In 37.5 Gm Tube PO PRN PRN Hypoglycemia Protocol Guaifenesin 600 mg 09/05/25 11:00 09/09/25 10:15 Guaifenesin 12 Hr 600 Mg Tabcr PO 600 mg Q12HR VIELKA Administration Heparin Sodium (Porcine) 5,000 units 09/03/25 09:00 09/09/25 10:18 Heparin Sodium 5,000 Units/Ml Vial SUB-Q 5,000 units Q12HR VIELKA Administration Hydralazine HCl 25 mg 09/04/25 09:00 09/09/25 10:15 Hydralazine Hcl 25 Mg Tablet PO 25 mg Q12HR VIELKA Administration Hydrochlorothiazide 12.5 mg 09/03/25 09:00 09/09/25 10:07 Hydrochlorothiazide 12.5 Mg Capsule PO Not Given On Hold: 09/09/25 09:32 QAM VIELKA Dextrose 1,000 mls @ 100 mls/hr 09/03/25 00:49 Dextrose 5% 1,000 Ml IVPB PRN PRN Hypoglycemia Protocol Aztreonam 2 gm/ Sodium 100 mls @ 200 mls/hr 09/05/25 21:00 09/09/25 10:51 Chloride IVPB 09/09/25 23:59 200 mls/hr Q12HR VIELKA Administration Lidocaine 1 patch 09/03/25 05:54 Lidocaine 5% Patch TOPICAL DAILY PRN Pain Lisinopril 20 mg 09/03/25 09:00 09/09/25 10:07 Lisinopril 20 Mg Tablet PO Not Given On Hold: 09/09/25 09:32 QAM VIELKA Nitroglycerin 0.4 mg 09/03/25 05:58 Nitroglycerin Sl 0.4 Mg Tablet SUBLINGUAL Q5M PRN Angina Ondansetron HCl 4 mg 09/03/25 00:43 Ondansetron Inj 4 Mg/2 Ml Vial IV PUSH Q4H PRN Nausea Pantoprazole Sodium 40 mg 09/03/25 09:00 09/09/25 10:15 Pantoprazole 40 Mg Tablet PO 40 mg QAM VIELKA Administration Potassium Chloride 20 meq 09/03/25 09:00 09/09/25 10:07 Potassium Chloride 20 Meq Er Tablet PO Not Given On Hold: 09/09/25 09:34 DAILY VIELKA Psyllium Hydrophilic Mucilloid 1 packet 09/03/25 09:00 09/09/25 10:24 Psyllium Sugar Free Powder Packet PO Not Given DAILY [facility] Radiology Results: ITS Impressions Chest CTA 09/03/25 08:41 IMPRESSION: 1. No pulmonary embolus. Sensitivity is moderately decreased by motion artifact. 2. Diffuse lung disease, consistent with pulmonary edema and/or pneumonia. 3. Small pleural effusions. Chest X-Ray 09/05/25 14:53 IMPRESSION: 1. No acute cardiopulmonary findings given portable technique. Humerus X-Ray 09/09/25 12:19 Impression: No acute fracture or malalignment. Wrist X-Ray 09/09/25 12:20 Impression: No acute fracture or malalignment. Elbow X-Ray 09/09/25 12:21 Impression: No acute fracture or malalignment. Renal Ultrasound 09/09/25 14:35 IMPRESSION: Normal renal ultrasound. Labs Labs: Laboratory Tests 09/09/25 05:27 09/09/25 05:27 Calcium 8.4 Magnesium 2.5 H Microbiology 09/06/25 20:27 Blood Blood Culture - Preliminary 09/06/25 20:28 Blood Blood Culture - Preliminary 09/03/25 01:08 Blood Blood Culture - Final 09/03/25 01:19 Blood Blood Culture - Final
[2025-09-09] MEDS: PANTOPRAZOLE 40 MG TABLET PO (10:15)
[2025-09-09] MEDS: guaiFENesin 12 HR 600 MG TABCR PO ×2 (10:15→20:57)
[2025-09-09] MEDS: CLOPIDOGREL BISULFATE 75 MG TABLET PO (10:15)
[2025-09-09] MEDS: DOXYCYCLINE HYCLATE 100 MG TABLET PO ×2 (10:15→20:56)
[2025-09-09 10:18] VITALS: PULSE 61
[2025-09-09] MEDS: HYDROcodone/acetaminophen (*CRX) 7.5-325 MG TABLET 1 TAB PO ×2 (10:19→20:57)
[2025-09-09] MEDS: AZTREONAM 2 GM in SODIUM CHLORIDE 0.9% IV 100 ML IVPB ×2 (10:51→20:56)
--- NOTE | 2025-09-09 12:32 | PCNWS ---
Weekly nutritional screen. Patient is tolerating current heart healthy diet with adequate intake per pt, does not want any supplements. No weight loss reported. No nutritional recommendations at this time.
--- NOTE | 2025-09-09 13:07 | PCPTNOTE ---
Attempted to see patient for PT, however patient refused. Patient reported she wanted to take a nap and did not want to work with PT.
[2025-09-09 13:49] VITALS: BP 116/37; PULSE 59; RESP 18; TEMP 36.1; O2SAT 98
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
[2025-09-09 22:00] VITALS: BP 137/40; PULSE 57; RESP 14; TEMP 36.3; O2SAT 99
[2025-09-09 22:36] LABS: Total Protein Urine Random 7 mg/dL; Ur Ttl Prot Creatinine Ratio 0.05 mg/mg (0-0.20)
[2025-09-09 23:09] LABS: Urea Random Urine 748 MG/DL
[2025-09-09 23:40] LABS: Urine Eos QC 2nd Tech Confirmed
[2025-09-10 06:00] VITALS: BP 120/46; PULSE 56; RESP 18; TEMP 36.6; O2SAT 97
[2025-09-10 07:28] LABS: Hematocrit 25.8 % (37.0-47.0); Hemoglobin 7.8 g/dL (12.0-15.0); Mean Corpuscular HGB Conc 30.2 g/dl (32-36); Mean Corpuscular Hemoglobin 31.1 pg (26-34); Mean Corpuscular Volume 102.8 fl (80-100); Platelet Count Result 291 k/mm3 (150-375); Red Blood Count 2.51 M/mm3 (4.2-5.4); White Blood Count 8.1 K/mm3 (4.5-10.0)
[2025-09-10 07:31] LABS: Anion Gap 8 mmol/L (4-12); Blood Urea Nitrogen 84 mg/dL (7-17); Calcium 8.2 mg/dL (8.4-10.2); Carbon Dioxide 17 mmol/L (22-30); Chloride 108 mmol/L (98-107); Estimated CRCL calculation 21 ml/min; Estimated Glomerular Filt Rate 22; Glucose 95 mg/dL (65-110); Magnesium 2.4 mg/dL (1.6-2.3); Potassium 4.8 mmol/L (3.4-5.0); Sodium 133 mmol/L (137-145)
[2025-09-10 08:00] VITALS: O2SAT 99
[2025-09-10 08:13] VITALS: O2SAT 92
--- NOTE | 2025-09-10 08:40 | P.DS_ITS ---
DS: Admitting Diagnosis Discharge Date 09/10/2025 Admitting Diagnosis Acute respiratory failure Pneumonia DS: Discharge Diagnosis Discharge Diagnosis (1) Acute hypoxic respiratory failure: Code(s): J96.01 - Acute respiratory failure with hypoxia Status: Acute Assessment and Plan: Chest x-ray shows patchy bilateral lower lobe opacities may represent pulmonary edema Chest CT pending Patient met sepsis criteria with leukocytosis and mild tachypnea Due to CHF recommend gentle fluid resuscitation Continue aztreonam Continue linezolid Continue Lasix Quad screen negative Baseline room air Currently on 2 L Nasal MRSA negative Getting better, will continue current treatment. Possible dc in am (2) Acute exacerbation of CHF (congestive heart failure): Qualifiers: Heart failure type: diastolic Qualified Code(s): I50.33 - Acute on chronic diastolic (congestive) heart failure Code(s): I50.9 - Heart failure, unspecified Status: Acute Assessment and Plan: Echocardiogram pending Prior echocardiogram from 2022 demonstrating diastolic dysfunction Elevated troponin BNP 10,200 strict I&O's and daily weights Possible demand ischemia History of 3 cardiac stents Continue lisinopril hydrochlorothiazide, atenolol and Norvasc (3) Pneumonia: Qualifiers: Laterality: bilateral Lung location: lower lobe of lung Pneumonia type: due to unspecified organism Qualified Code(s): J18.9 - Pneumonia, unspecified organism Code(s): J18.9 - Pneumonia, unspecified organism Status: Acute Assessment and Plan: Same as above (4) Bilateral pleural effusion: Code(s): J90 - Pleural effusion, not elsewhere classified Status: Acute Assessment and Plan: Pending CT results Lasix 40 mg IV b.i.d. (5) Elevated troponin: Code(s): R79.89 - Other specified abnormal findings of blood chemistry Status: Acute Assessment and Plan: Possible demand ischemia Cardiology consulted and appreciate recommendations (6) Anxiety: Code(s): F41.9 - Anxiety disorder, unspecified Status: Acute Assessment and Plan: After evaluation will consider BuSpar Diazepam 5 mg p.r.n. anxiety home medications Plan 85 y/o female presented with acute dyspnea seen by the post anesthesia nurse and suspect 2/2 multifactors with pneumonia and CHF with elevated BNP of 10,200, patient is being treated with Aztreonam, zithromax and Zyvox. and being diuresed with IV lasix, patient clinical symptoms are improving as patient was able to ambulate in the hallways without any difficulty and will repeat chest x-ray to further evaluate pneumonia. patient remains clinically stable. today patient stats she feels tired and her legs hurting and does not want to walk, or work with PT, patient is wheezing and Scr is rising and currently not on Lasix, to further evaluate CXR was done which did not show any acute cardiopulmonary findings given portable technique. will continue to monitor, Patient Scr is persisting, started the patient on IVF there is slight improvement in her Scr however her urine put is poor, consulted [facility] internship for further recommendation to follow. patient with pneumonia blood culture no growth so far, seen by ID recommended to CPM, again patient is refusing to get out bed and not participating with PT. patient encourage as her OA will get worse. DS: Summary Hospital Course Reason for hospitalization: Acute respiratory failure Hospital Course: 85 years old female from assisted living was admitted complained having shortness of breath, patient was found to have acute respiratory failure with hypoxia. Patient also have a touch of pneumonia. Patient was given nebulizer treatment and IV antibiotics. Today patient is feeling better patient was discharged home in stable condition. Patient hemoglobin will be monitored as an outpatient. Condition stable time of discharge. Status at Discharge Cognitive/behavioral status at discharge: Stable Time Spent with Patient Time attestation: Total time spent providing and/or coordinating discharge services: More than 30 minutes Exam Narrative: Morbidly obese Patient is comfortable, NAD HEENT: eyes are clear and none icteric LUNGS:CTA HEART: RR S1S2 ABD: BS+, Soft and nontender Lower extremities: no edema SKIN: nonjaundiced Neuro: grossly intact. Const: Other: Mildly ill-appearing, appears younger than stated age, obese HENMT: Other: Alopecia of the scalp, head is normocephalic atraumatic otherwise with a small nodule on the left rastafarian, mucous membranes are tacky, no oral pharyngeal erythema, upper and lower dentures in place, nasal cannula in place Eyes: Other: Pupils are equal and reactive, bilateral lens implants noted, extraocular movements intact Neck: Other: No JVD, no lymphadenopathy, musculoskeletal tenderness in the posterior left neck Resp: Other: Crackles at the bases bilaterally, no increased work of breathing Cardio: Other: Regular rate, regular rhythm, 2+ bilateral radial pedal pulses GI: Other: Soft, nontender, normoactive bowel sounds : Other: Pure wick catheter in place Skin: Other: No jaundice, no pallor, alopecia to the scalp Neuro: Other: Alert oriented x4, speech is clear, no facial asymmetry, moves all extremities equally, no localizing neurologic deficits noted during conversation Extrem: Other: Edema bilateral lower extremities more so up into the thighs and lower abdomen with some pitting in these areas with more chronic changes to lower extremities Psych: Other: Appropriate mood and affect, pleasant and cooperative, judgment and insight intact DS: Data Data Completed and Pending Labs on day of discharge: Labs from last 24 hours 09/10/25 09/09/25 05:43 22:22 WBC 8.1 RBC 2.51 L Hgb 7.8 L Hct 25.8 L MCV 102.8 H MCH 31.1 MCHC 30.2 L RDW 13.5 Plt Count 291 MPV 10.9 H Sodium 133 L Potassium 4.8 Chloride 108 H Carbon Dioxide 17 L Anion Gap 8 BUN 84 H Creatinine 2.10 H Estim Creat Clear Calc 21 Estimated GFR 22 L Glucose 95 Calcium 8.2 L Magnesium 2.4 H Urine Eosinophils None seen U Random Total Protein 7 Ur Random Sodium 20 Ur Random Urea 748 Urine Creatinine 134.5 Protein/Creat Ratio 2 0.05 Preliminary micro results at discharge 09/06/25 20:27 Blood Culture - Preliminary Blood 09/06/25 20:28 Blood Culture - Preliminary Blood Discharge Plan Discharge Attending physician on discharge: Koffi Alamo Consulting providers: Osman Sam; Rivera Ortega; Kathleen Pratt Discharging Clinician: Koffi Alamo Patient Disposition: SNF Activity: as tolerated Diet: as tolerated Patient Instructions: Antibiotic Form, Heart Failure (GEN), Hypertension (GEN), Hypoxia (GEN), Pneumonia (GEN), Acute Respiratory Failure (GEN) Patient Language: [place] Stand Alone Forms: General Discharge Information Discharge Medications: New doxycycline hyclate 100 mg Tablet 100 mg PO Q12HR Qty: 14 0RF hydralazine 25 mg Tablet 25 mg PO Q12HR Qty: 60 0RF ferrous sulfate [iron] 325 mg (65 mg iron) tablet 325 mg PO DAILY Qty: 30 2RF Continued atenolol 100 mg tablet 50 mg PO QAM atenolol 100 mg Tablet 100 mg PO QPM amlodipine 10 mg tablet 10 mg PO DAILY lisinopril-hydrochlorothiazide 20-12.5 mg tablet 1 tablet PO DAILY Qty: 90 1RF nitroglycerin 0.4 mg tablet, sublingual 0.4 mg SUBLINGUAL Q5M PRN (Reason: Angina) Qty: 30 0RF lidocaine 5 % adhesive patch,medicated 1 patch topical DAILY PRN (Reason: pain) Rx Instructions: leave on most painful area for up to 12 hrs Metamucil Fiber (aspartame) 3.4 gram powder in packet 3.4 g PO DAILY potassium chloride [Klor-Con 10] 10 mEq tablet extended release 20 meq PO DAILY loperamide [Imodium A-D] 2 mg capsule 2 mg PO .COMPLEX PRN (Reason: loose stool) Patient Comments: Take 1 capsule at onset of diarrhea, may repeat with each loose stool as needed Rx Instructions: 2 mg orally PRN; hydrocodone-acetaminophen 7.5-325 mg tablet 1 tablet PO Q12H acetaminophen [Mapap (acetaminophen)] 325 mg Tablet 650 mg PO Q4H PRN (Reason: Mild Pain (1-3) Or Fever) Qty: 30 0RF pantoprazole [Protonix] 40 mg tablet,delayed release (DR/EC) 40 mg PO QAM clopidogrel 75 mg tablet 75 mg PO DAILY Qty: 90 1RF furosemide [Lasix] 40 mg tablet 40 mg PO QAM Qty: 90 1RF diazepam 5 mg tablet 5 mg PO DAILY PRN (Reason: anxiety) Qty: 90 0RF Discontinued furosemide 20 mg tablet 20 mg PO QAM PRN (Reason: edema) Qty: 30 3RF Date of admission: 09/03/25 00:45 Primary Care Provider: ErwinKatarzyna Admitting Provider: Maryellen Hamilton Attending physician on admission: Maryellen Hamilton Condition: Stable Quality VTE Prophylaxis VTE prophylaxis: pharmacologic ordered (Heparin 5000 units subQ q.12 hours)
[2025-09-10 09:41] VITALS: BP 130/49; PULSE 60; RESP 16; O2SAT 99
[2025-09-10] MEDS: DOXYCYCLINE HYCLATE 100 MG TABLET PO (09:44)
[2025-09-10] MEDS: CLOPIDOGREL BISULFATE 75 MG TABLET PO (09:44)
[2025-09-10] MEDS: guaiFENesin 12 HR 600 MG TABCR PO (09:44)
[2025-09-10 09:45] VITALS: PULSE 64
[2025-09-10] MEDS: PANTOPRAZOLE 40 MG TABLET PO (09:46)
[2025-09-10] MEDS: HYDROcodone/acetaminophen (*CRX) 7.5-325 MG TABLET 1 TAB PO (09:46)
[2025-09-10 11:46] VITALS: BP 112/36; PULSE 55; O2SAT 97
[2025-09-10] MEDS: IPRATROPIUM 0.5 MG/ALBUTEROL SULFATE 2.5 MG (BASE) AMPUL.NEB 3 ML INHALATION (13:58)
== END 2025-09-10 14:00 | DRG 193 ==
LOC: ANHED 09-03 00:43 → ANHIMU 09-03 02:01 → ANH3MEDSUR 09-03 17:06
PROVIDERS: Family Medicine; General Practice; Internal Medicine Nephrology; Student in an Organized Health Care Education/Training Program; Admitting Provider Internal Medicine; Emergency Provider Physician Assistant; Visit Provider Internal Medicine
DX: J18.9 Pneumonia, unspecified organism (principal); I50.33 Acute on chronic diastolic (congestive) heart failure; J96.01 Acute respiratory failure with hypoxia; I13.0 Hypertensive heart and chronic kidney disease with heart failure and stage 1 through stage 4 chronic kidney disease, or unspecified chronic kidney disease; N17.9 Acute kidney failure, unspecified; I24.89 Other forms of acute ischemic heart disease; I25.10 Atherosclerotic heart disease of native coronary artery without angina pectoris; K21.9 Gastro-esophageal reflux disease without esophagitis; G89.29 Other chronic pain; M54.89 Other dorsalgia; E78.5 Hyperlipidemia, unspecified; M19.011 Primary osteoarthritis, right shoulder; D64.89 Other specified anemias; F41.9 Anxiety disorder, unspecified; M25.562 Pain in left knee; M25.561 Pain in right knee; E83.42 Hypomagnesemia; E66.01 Morbid (severe) obesity due to excess calories; R62.7 Adult failure to thrive; L65.8 Other specified nonscarring hair loss; R50.9 Fever, unspecified; N18.32 Chronic kidney disease, stage 3b; Z66 Do not resuscitate; Z20.822 Contact with and (suspected) exposure to COVID-19; M79.632 Pain in left forearm; Z96.612 Presence of left artificial shoulder joint; Z79.899 Other long term (current) drug therapy; Z79.891 Long term (current) use of opiate analgesic; Z68.35 Body mass index [BMI] 35.0-35.9, adult; Z88.1 Allergy status to other antibiotic agents; Z86.19 Personal history of other infectious and parasitic diseases; Z90.49 Acquired absence of other specified parts of digestive tract; Z95.5 Presence of coronary angioplasty implant and graft; Z87.891 Personal history of nicotine dependence; Z86.16 Personal history of COVID-19; I25.2 Old myocardial infarction
CPT/HCPCS: 36415; 71045; 71046; 71275; 73060; 73070; 73100; 76770; 80048; 80053; 82570; 83605; 83735; 83880; 84156; 84300; 84484; 84540; 85025; 85027; 85380; 85610; 85730; 85999; 87040; 87637; 87641; 93005; 93306; 94640; 97110; 97161; 97166; 97530; 97535; 99285; A9270; J0457; J1644; J1938; J3475; J7030; Q9967